=== PATIENT | female | born 1965 | race Caucasian/White ===

== ENCOUNTER 2020-03-09 10:07 | Outpatient (REF) | payer OTHER, SELFPAY ==
--- NOTE | 2020-03-09 | MM_ITS ---
EXAMINATION: MM SCREENING DIGITAL BREAST TOMOSYNTHESIS, BILATERAL CLINICAL INFORMATION: Screening. Asymptomatic. The lifetime risk of breast cancer based on the Tyrer-Cuzick Model is 12%. COMPARISON: Mammography: 08/26/2018, 02/10/2018, 08/02/2017, 07/02/2016, 06/13/2015 TECHNIQUE: Digital breast tomosynthesis is performed in both the craniocaudal and mediolateral oblique views along with computer-aided detection (CAD). Synthesized 2D images are generated from the tomosynthesis. FINDINGS: There are scattered areas of fibroglandular density (ACR BI-RADS breast composition Category b). There are bilateral biopsy clip markers, mid left 6:00 and 2 anterior inferior right breast. The left breast shows no interval mass or architectural abnormality. Neither breast shows abnormal calcifications. The axilla and skin contours are unremarkable. Right breast has subtle focal asymmetric density 12 o'clock position 6.5 cm from nipple, possibly related to summation artifact or incompletely compressed fibroglandular tissue. Patient will be recalled to fully characterize. MM/MM tomosynthesis screening BI IMPRESSION: 1. Right: Focal asymmetric density 12:00 position, possibly summation artifact or incompletely compressed fibroglandular tissue. 2. Left: No mammographic evidence of malignancy. ASSESSMENT: BI-RADS 0: Incomplete - Need Additional Imaging Evaluation RECOMMENDATION: 1. Additional views of the right breast (3D rolled CC x2, 3D spot ML). 2. Targeted ultrasound if warranted after review of the additional views. 3. Radiology department staff will contact the patient for additional imaging. This patient's information was entered into a reminder system with a target due date for their next mammogram.
== END 2020-03-09 10:08 | disposition home or self-care (01) ==
LOC: HO.MAMMO 10:07
PROVIDERS: PCP Internal Medicine; Visit Provider Internal Medicine
DX: Z12.31 Encounter for screening mammogram for malignant neoplasm of breast (principal)
CPT/HCPCS: 77063; 77067

== ENCOUNTER 2020-03-22 10:09 | Outpatient (REF) | payer OTHER, SELFPAY ==
[2020-03-22 10:50] LABS: MANUAL DIFF FLAG NO
[2020-03-22 10:58] LABS: Basophils Percent Auto 0.2 % (0-2); Eosinophils Percent Auto 0.8 % (0-4); Hematocrit 47.4 % (37-47); Hemoglobin 14.6 g/dl (12.0-16.0); Imm Gran Abs Auto 0.02 X10*3/uL (0.00-0.03); Imm Gran Pct Auto 0.4 % (0.0-0.4); Lymphocytes Absolute Auto 1.7 X10*3/uL (1.2-4.9); Lymphocytes Percent Auto 33.7 % (20-40); Mean Corpuscular HGB Conc 30.8 g/dl (31.0-35.0); Mean Corpuscular Hemoglobin 27.7 pg (27.0-33.0); Mean Corpuscular Volume 89.9 fL (80-98); Mean Platelet Volume 10.2 fL (9.4-12.3); Monocytes Absolute Auto 0.4 X10*3/uL (0.1-1.2); Neutrophils Percent Auto 57.9 % (45-73); Platelet Count 215 X10*3/uL (160-400); Red Blood Count 5.27 X10*6/uL (4.20-5.50); Red Cell Distribution Width 13.3 % (11.0-16.0); White Blood Count 5.2 X10*3/uL (4.8-10.8)
[2020-03-22 11:23] LABS: Alanine Aminotransferase 29 U/L (0-31); Albumin Level 4.2 g/dL (3.5-5.0); Alkaline Phosphatase 108 U/L (39-117); Anion Gap 11 (12-20); Aspartate Amino Transferase 18 U/L (5-31); Bilirubin Total 0.4 mg/dL (0.0-1.0); Blood Urea Nitrogen 10 mg/dL (9-16); Calcium 9.4 mg/dL (8.4-10.2); Carbon Dioxide 28 mmol/L (22-29); Chloride 105 mmol/L (96-108); Cholesterol 207 mg/dL; Estimated Glomerular Filt Rate > 60; Glucose Fasting 86 mg/dL (60-99); HDL Cholesterol 52 mg/dL; LDL Cholesterol Calculated 140 mg/dl; Potassium 4.2 mmol/l (3.3-5.1); Sodium 140 mmol/L (135-145); Total Protein 7.7 g/dL (6.5-8.0); Triglycerides 76 mg/dL
[2020-03-22 11:46] LABS: Vitamin D 25-OH Total 26.6 ng/mL (>30)
== END 2020-03-22 10:10 | disposition home or self-care (01) ==
LOC: HO.LAB 10:09
PROVIDERS: PCP Internal Medicine; Visit Provider Internal Medicine
DX: E78.00 Pure hypercholesterolemia, unspecified (principal); G44.209 Tension-type headache, unspecified, not intractable; E55.9 Vitamin D deficiency, unspecified
CPT/HCPCS: 36415; 80053; 80061; 82306; 85025

== ENCOUNTER 2020-03-22 12:36 | Outpatient (REF) | payer OTHER, SELFPAY | END 2020-03-22 12:37 | disposition home or self-care (01) | LOC: HO.MAMMO 12:36 | PROVIDERS: PCP Internal Medicine; Visit Provider Internal Medicine | DX: Z13.89 Encounter for screening for other disorder (principal) ==

== ENCOUNTER 2020-04-21 14:08 | Outpatient (REF) | payer OTHER, SELFPAY ==
--- NOTE | 2020-04-21 14:14 | MM_ITS ---
EXAMINATION: MM DIAGNOSTIC DIGITAL BREAST TOMOSYNTHESIS, RIGHT US BREAST TARGETED, RIGHT CLINICAL INFORMATION: Right breast asymmetry. COMPARISON: Mammography: 03/09/2020 and studies dating back to 10/03/2009 TECHNIQUE: Digital breast tomosynthesis is performed. 2-D images are generated from the tomosynthesis. The following views are obtained: Full-field craniocaudal medial and lateral rolled views as well as spot compression craniocaudal and 90 degree mediolateral view. Targeted right breast ultrasound. FINDINGS: The breasts are heterogeneously dense, which may obscure small masses (ACR BI-RADS breast composition Category c). At approximately the 12 o'clock position 8 cm from the nipple, there is a region of architectural distortion with indeterminate calcifications present. Targeted ultrasound evaluation of the superior aspect of the right breast did not definitely demonstrate a corresponding lesion. Recommend stereotactic core biopsy of the right breast lesion with calcifications. Results are discussed with the patient at time of visit. Hilda at referring physician's office notified of the above recommendation. MM/MM tomosynthesis added views L IMPRESSION: Suspicious spiculated mass with microcalcifications superior aspect of the right breast for which stereotactic core biopsy is recommended. ASSESSMENT: BI-RADS 4: Suspicious RECOMMENDATION: Stereotactic biopsy. This patient's information was entered into a reminder system with a target due date for their next mammogram.
--- NOTE | 2020-04-21 14:15 | US_ITS ---
EXAMINATION: US DIAGNOSTIC ULTRASOUND BREAST, RIGHT CLINICAL INFORMATION: Region of asymmetric distortion with calcifications superior right breast. COMPARISON: Mammography of same day as well as dating back to 02/14/2010. TECHNIQUE: Ultrasound of the breast is performed with real-time kenyon scale imaging and color Doppler. FINDINGS: The breasts are heterogeneously dense, which may obscure small masses (ACR BI-RADS breast composition Category c). At approximately 12 o'clock position 8 cm from the nipple there is a region of architectural distortion with indeterminate calcifications present. Targeted ultrasound evaluation of the superior aspect of the right breast did not definitely demonstrate a corresponding lesion. Recommend stereotactic core biopsy of the right breast lesion with calcifications. Results are discussed with the patient at time of visit. Hilda at referring physician's office notified of the above recommendation. US/US breast RT limited IMPRESSION: Suspicious spiculated mass with microcalcifications superior aspect of the right breast for which stereotactic core biopsy is recommended. ASSESSMENT: BI-RADS 4: Suspicious RECOMMENDATION: Stereotactic biopsy.
== END 2020-04-21 14:09 | disposition home or self-care (01) ==
LOC: HO.MAMMO 14:08
PROVIDERS: PCP Internal Medicine; Visit Provider Internal Medicine
DX: N64.9 Disorder of breast, unspecified (principal)
CPT/HCPCS: 76642; 77061; 77065

== ENCOUNTER 2020-05-03 08:57 | Outpatient (REF) | payer OTHER, SELFPAY ==
--- NOTE | 2020-05-03 09:06 | MM_ITS ---
EXAMINATION: STEREOTACTIC TOMOSYNTHESIS-GUIDED VACUUM-ASSISTED BREAST BIOPSY, RIGHT SPECIMEN RADIOGRAPH, RIGHT POST PROCEDURE DIGITAL BREAST TOMOSYNTHESIS, RIGHT CLINICAL INFORMATION: Architectural changes 11:00 to 12:00 right breast. No definite focal ultrasound correlate. Stereotactic sampling recommended. COMPARISON: Mammography 05/01/2020, 03/09/2020, 08/26/2018, 08/02/2017, ultrasound right breast 04/21/2020. TECHNIQUE/PROCEDURE: Informed consent was obtained from the patient after discussion of the benefits, risks, and alternatives to biopsy today. Patient appeared to understand. Gave opportunity for questions. Patient signed consent form. BIOPSY TABLE: [employer] ([employer] Affirm Prone Biopsy System. LESION: Architectural changes upper right breast. Calcifications referenced on recent report posterior superior to the architectural change appear to be vascular. Architectural changes targeted. LOCAL ANESTHESIA: 6 mL 1% lidocaine; 10 mL 1% lidocaine with epinephrine. DERMATOTOMY: Single skin luis dermatotomy performed. NEEDLE: [employer] Eviva 9-gauge vacuum assisted core biopsy device. APPROACH: craniocaudal. TARGETING: Digital breast tomosynthesis used for targeting. CORES: 12. CLIP: shoutr SecurMark T-shaped marker. SPECIMEN RADIOGRAPH: Specimen radiograph x 2 views is taken in separate room using digital mammography. There are multiple fibroglandular densities in the cores. POST PROCEDURE UNILATERAL DIGITAL BREAST TOMOSYNTHESIS, RIGHT: The post biopsy mammogram is performed in separate room using separate digital breast tomosynthesis equipment from the biopsy procedure. CC and ML views are obtained. Synthesized images are generated from the tomography. There are scattered areas of fibroglandular density (breast composition category: b). The clip marker is in position, corresponding to the area of architectural concern. No gross hematoma. The patient tolerated the procedure well. No immediate complications. Home instructions reviewed with the patient. Final pathology results are pending. MM/MM stereotactic biopsy RT IMPRESSION: 1. Digital tomosynthesis-guided core biopsy right breast with clip placement. 2. Specimen radiograph taken and post procedure mammogram. There is satisfactory positioning of the biopsy clip. 3. Final pathology results pending. An addendum report will be issued.
== END 2020-05-03 08:58 | disposition home or self-care (01) ==
LOC: HO.MAMMO 08:57
PROVIDERS: Visit Provider Surgery
DX: N63.11 Unspecified lump in the right breast, upper outer quadrant (principal)
CPT/HCPCS: 19081; 88305; 88341; 88342; 99202

== ENCOUNTER → 2020-05-06 08:35 | Outpatient (BNVA) | payer OTHER, SELFPAY | PROVIDERS: PCP Internal Medicine; Visit Provider Surgery | DX: R92.8 Other abnormal and inconclusive findings on diagnostic imaging of breast (principal) | CPT/HCPCS: 99212 ==

== ENCOUNTER 2020-10-05 14:25 | Outpatient (REF) | payer OTHER, SELFPAY ==
--- NOTE | ~2020-10-05 | MM_ITS ---
EXAMINATION: MM DIAGNOSTIC DIGITAL BREAST TOMOSYNTHESIS, RIGHT CLINICAL INFORMATION: Short interval follow-up right stereotactic biopsy 05/03/2020 (Benign breast parenchyma with fibrocystic changes, apocrine adenosis, and scattered calcifications; negative for atypical hyperplasia and carcinoma). The lifetime risk of breast cancer based on the Tyrer-Cuzick Model is 7%. COMPARISON: Mammography: 05/03/2020, 1 11/01/2020, 03/09/2020, 08/27/2019 2019 TECHNIQUE: Digital breast tomosynthesis is performed in both the craniocaudal and mediolateral oblique views along with computer-aided detection (CAD). Synthesized 2D images are generated from the tomosynthesis. Additional magnification views are obtained in the CC and ML x3 projections. FINDINGS: There are scattered areas of fibroglandular density (ACR BI-RADS breast composition Category b). There are 2 old biopsy clip markers anterior 6:00 position. The clip marker mid 12:00 position represents the most recent tissue sampling from stereotactic biopsy 05/03/2020. There is no developing density or interval architectural changes. There are numerous fine calcifications tightly grouped 1 cm posterior to the stereotactic clip marker on the CC view. These appear likely increased on the CC view compared with prior imaging and do not appear vascular. On ML #3 mag view, the calcifications appear to be arranged in a circular configuration and less numerous, possibly rim calcifications around fat necrosis. There are no prior magnification views to definitively compare. Results are discussed with the patient at time of visit. There are no interval architectural changes. The calcifications posterior to the clip marker will continue to be followed, again at next bilateral exam, due in 6 months. MM/MM tomosynthesis diagnostic RT IMPRESSION: 1. No developing density or architectural changes in area prior tissue sampling for architectural distortion. 2. Calcifications 1 cm posterior to the clip marker appear likely increased on CC view but circularly arranged in rim fashion on ML view. They do not appear to be vascular. No prior magnification views. ASSESSMENT: BI-RADS 3: Probably Benign RECOMMENDATION: Magnification views right breast at time of annual bilateral exam, due in 6 months. This patient's information was entered into a reminder system with a target due date for their next mammogram.
== END 2020-10-05 14:26 | disposition home or self-care (01) ==
LOC: HO.MAMMO 14:25
PROVIDERS: Visit Provider Surgery
DX: R92.1 Mammographic calcification found on diagnostic imaging of breast (principal)
CPT/HCPCS: 77061; 77065

== ENCOUNTER → 2020-11-07 08:05 | Outpatient (BNVA) | payer OTHER, SELFPAY | PROVIDERS: PCP Internal Medicine; Visit Provider Obstetrics & Gynecology ==

== ENCOUNTER 2021-03-10 08:18 | Outpatient (REF) | payer OTHER, SELFPAY ==
[2021-03-10 08:33] LABS: MANUAL DIFF FLAG NO
[2021-03-10 08:39] LABS: Basophils Percent Auto 0.2 % (0-2); Eosinophils Absolute Auto 0.1 X10*3/uL (0.0-0.4); Eosinophils Percent Auto 1.3 % (0-4); Hematocrit 45.7 % (37.0-47.0); Hemoglobin 14.6 g/dl (12.0-16.0); Imm Gran Abs Auto 0.03 X10*3/uL (0.00-0.03); Imm Gran Pct Auto 0.5 % (0.0-0.4); Lymphocytes Absolute Auto 2.1 X10*3/uL (1.2-4.9); Lymphocytes Percent Auto 33.5 % (20-40); Mean Corpuscular HGB Conc 31.9 g/dl (31.0-35.0); Mean Corpuscular Hemoglobin 28.2 pg (27.0-33.0); Mean Corpuscular Volume 88.4 fL (80.0-98.0); Mean Platelet Volume 10.1 fL (9.4-12.3); Monocytes Absolute Auto 0.5 X10*3/uL (0.1-1.2); Neutrophils Absolute Auto 3.5 x10*3/uL (2.0-8.3); Neutrophils Percent Auto 56.5 % (45-73); Platelet Count 229 X10*3/uL (160-400); Red Blood Count 5.17 X10*6/uL (4.20-5.50); Red Cell Distribution Width 13.9 % (11.0-16.0); White Blood Count 6.2 X10*3/uL (4.8-10.8)
[2021-03-10 09:00] LABS: Alanine Aminotransferase 27 U/L (0-31); Alkaline Phosphatase 100 U/L (39-117); Anion Gap 11 (12-20); Aspartate Amino Transferase 17 U/L (5-31); Bilirubin Total 0.6 mg/dL (0.0-1.0); Blood Urea Nitrogen 10 mg/dL (9-16); Calcium 9.5 mg/dL (8.4-10.2); Carbon Dioxide 25 mmol/L (22-29); Chloride 105 mmol/L (96-108); Cholesterol 197 mg/dL; Estimated Glomerular Filt Rate > 60; Glucose Fasting 105 mg/dL (60-99); HDL Cholesterol 51 mg/dL; LDL Cholesterol Calculated 127 mg/dl; Potassium 3.9 mmol/L (3.3-5.1); Sodium 137 mmol/L (135-145); Total Protein 7.3 g/dL (6.5-8.0); Triglycerides 96 mg/dL
[2021-03-13 12:01] LABS: Vitamin D 25-OH, D2 <4 ng/mL; Vitamin D 25-OH, D3 28 ng/mL; Vitamin D 25-OH, Total 28 ng/mL (30-100)
== END 2021-03-10 08:19 | disposition home or self-care (01) ==
LOC: HO.LAB 08:18
PROVIDERS: PCP Internal Medicine; Visit Provider Internal Medicine
DX: E78.5 Hyperlipidemia, unspecified (principal); G43.909 Migraine, unspecified, not intractable, without status migrainosus; E55.9 Vitamin D deficiency, unspecified; D64.9 Anemia, unspecified
CPT/HCPCS: 36415; 80053; 80061; 82306; 85025

== ENCOUNTER 2021-04-03 12:52 | Outpatient (REF) | payer OTHER, SELFPAY ==
--- NOTE | ~2021-04-03 | MM_ITS ---
EXAMINATION: MM DIAGNOSTIC DIGITAL BREAST TOMOSYNTHESIS, BILATERAL CLINICAL INFORMATION: Due for yearly. Also follow-up benign right stereotactic biopsy performed for chronic architectural changes 04/23/2020 (Benign breast parenchyma with fibrocystic changes, apocrine adenosis, and scattered calcifications; negative for atypical hyperplasia and carcinoma). Calcifications adjacent to biopsy clip marker felt to be vascular. COMPARISON: Mammography: 10/05/2020, 05/03/2020, multiple prior exams dating back to 04/09/2012 TECHNIQUE: Digital breast tomosynthesis is performed in both the craniocaudal and mediolateral oblique views along with computer-aided detection (CAD). Synthesized 2D images are generated from the tomosynthesis. Magnification right CC, magnification right ML. FINDINGS: There are scattered areas of fibroglandular density (ACR BI-RADS breast composition Category b). Parenchymal pattern is similar to prior studies. There is no interval mass or architectural abnormality or developing density. Subtle architectural changes mid upper right breast 11:00 position appear stable from multiple prior exams. Biopsy clip marker present at this site. The calcifications immediately posterior to the clip marker were felt to represent vascular calcifications and remain stable on magnification views. They will be reassessed again in 6 months. There is no additional biopsy clip markers anterior right breast and a biopsy clip marker 6:30 o'clock mid left breast. The axilla and skin contours are unremarkable. Preliminary results are provided to the patient at time of visit by the technologist. MM/MM tomosynthesis diagnostic BI IMPRESSION: 1. Right: No developing density or interval architectural abnormality. Probable benign calcifications near biopsy site, previously considered to be likely vascular. 2. Left: No mammographic evidence of malignancy. ASSESSMENT: BI-RADS 3: Probably Benign RECOMMENDATION: Diagnostic right mammography in 6 months, to include magnification views. This patient's information was entered into a reminder system with a target due date for their next mammogram.
== END 2021-04-03 12:53 | disposition home or self-care (01) ==
LOC: HO.MAMMO 12:52
PROVIDERS: Visit Provider Internal Medicine
DX: R92.1 Mammographic calcification found on diagnostic imaging of breast (principal)
CPT/HCPCS: 77062; 77066

== ENCOUNTER 2021-04-21 07:32 | Outpatient (REF) | payer OTHER, SELFPAY | END 2021-04-21 07:33 | disposition home or self-care (01) | LOC: HO.HOSX 07:32 | PROVIDERS: Visit Provider Physician Assistant | DX: Z13.89 Encounter for screening for other disorder (principal) ==

== ENCOUNTER 2021-07-28 07:08 | Outpatient (REF) | payer OTHER, SELFPAY ==
--- NOTE | ~2021-07-28 | XR_ITS ---
EXAMINATION: 1. RADIOGRAPHS STANDING KNEES AP BILATERAL 2. RADIOGRAPHS RIGHT KNEE, PATELLAR AND LATERAL VIEW CLINICAL INFORMATION: Pain COMPARISON: Bilateral knee radiographs 10/27/2020 TECHNIQUE: Standing AP views of both knees were obtained in addition to lateral and patellar sunrise views of the right knee. FINDINGS: Right knee: No fracture or dislocation. No suprapatellar joint effusion. Minimal narrowing of the medial joint space height. Small tricompartmental marginal osteophytes, most predominantly involving the medial compartment. AP standing view of the left knee: Minimal narrowing of the medial joint space height. No fracture. No significant degenerative changes. XR/XR knee RT 2V IMPRESSION: Mild degenerative changes of both knees.
--- NOTE | ~2021-07-28 | XR_ITS ---
EXAMINATION: 1. RADIOGRAPHS STANDING KNEES AP BILATERAL 2. RADIOGRAPHS RIGHT KNEE, PATELLAR AND LATERAL VIEW CLINICAL INFORMATION: Pain COMPARISON: Bilateral knee radiographs 10/27/2020 TECHNIQUE: Standing AP views of both knees were obtained in addition to lateral and patellar sunrise views of the right knee. FINDINGS: Right knee: No fracture or dislocation. No suprapatellar joint effusion. Minimal narrowing of the medial joint space height. Small tricompartmental marginal osteophytes, most predominantly involving the medial compartment. AP standing view of the left knee: Minimal narrowing of the medial joint space height. No fracture. No significant degenerative changes. XR/XR knee standing BI IMPRESSION: Mild degenerative changes of both knees.
== END 2021-07-28 07:09 | disposition home or self-care (01) ==
LOC: HO.HOSX 07:08
PROVIDERS: Visit Provider Physician Assistant
DX: M17.11 Unilateral primary osteoarthritis, right knee (principal)
CPT/HCPCS: 20610; 73560; 73565; 99202; J1040

== ENCOUNTER 2021-10-02 10:01 | Outpatient (REF) | payer OTHER, SELFPAY ==
--- NOTE | ~2021-10-02 | MM_ITS ---
EXAMINATION: MM DIAGNOSTIC DIGITAL BREAST TOMOSYNTHESIS, RIGHT CLINICAL INFORMATION: Benign right stereotactic biopsy 04/23/2020 performed for architectural changes (Benign breast parenchyma with fibrocystic changes, apocrine adenosis, and scattered calcifications; negative for atypical hyperplasia and carcinoma). Also follow-up probable benign tightly grouped calcifications posterior to biopsy site. The lifetime risk of breast cancer based on the Tyrer-Cuzick Model is 6%. COMPARISON: Mammography: 04/03/2021, 10/05/2020, 05/03/2020, 04/21/2020, 03/09/2020 (BI-RADS 0). TECHNIQUE: Digital breast tomosynthesis is performed in both the craniocaudal and mediolateral oblique views along with computer-aided detection (CAD). Synthesized 2D images are generated from the tomosynthesis. Additional magnification right CC x2 and magnification right ML views are obtained. FINDINGS: There are scattered areas of fibroglandular density (ACR BI-RADS breast composition Category b). Parenchymal pattern is similar to prior studies. There are 2 old biopsy clip markers retroareolar inferior breast. T-shaped biopsy clip marker 12:00 position is from recent stereotactic procedure. There are no interval architectural changes. No interval mass or abnormal calcifications. The punctate tightly grouped calcifications immediately superior and posterior to the clip marker outside of the architectural area for sampling are stable. Calcifications will be reassessed again at time of annual bilateral mammography, due in 6 months. Results are provided to the patient at time of visit by the technologist. MM/MM tomosynthesis diagnostic RT IMPRESSION: -Parenchymal pattern similar to prior studies. No interval architectural abnormality. -Probable benign tightly grouped calcifications posterior superior to biopsy site stable. ASSESSMENT: BI-RADS 3: Probably Benign RECOMMENDATION: Diagnostic mammography at time of annual bilateral exam, due in 6 months. This patient's information was entered into a reminder system with a target due date for their next mammogram.
== END 2021-10-02 10:02 | disposition home or self-care (01) ==
LOC: HO.MAMMO 10:01
PROVIDERS: Visit Provider Internal Medicine
DX: R92.1 Mammographic calcification found on diagnostic imaging of breast (principal)
CPT/HCPCS: 77061; 77065

== ENCOUNTER → 2022-01-16 08:51 | Outpatient (BNVA) | payer OTHER, SELFPAY | PROVIDERS: PCP Internal Medicine; Visit Provider Physician Assistant | DX: M17.11 Unilateral primary osteoarthritis, right knee (principal) | CPT/HCPCS: 20610; 99212; J1040 ==

== ENCOUNTER 2022-02-09 07:23 | Outpatient (REF) | payer OTHER, SELFPAY ==
[2022-02-09 08:50] LABS: Alanine Aminotransferase 16 U/L (0-31); Alkaline Phosphatase 97 U/L (39-117); Anion Gap 13 (12-20); Aspartate Amino Transferase 12 U/L (5-31); Bilirubin Total 0.4 mg/dL (0.0-1.0); Blood Urea Nitrogen 10 mg/dL (9-16); Calcium 9.9 mg/dL (8.4-10.2); Carbon Dioxide 29 mmol/L (22-29); Chloride 104 mmol/L (96-108); Cholesterol 213 mg/dL; Estimated Glomerular Filt Rate > 60; Glucose Fasting 100 mg/dL (60-99); HDL Cholesterol 53 mg/dL; LDL Cholesterol Calculated 145 mg/dl; Sodium 142 mmol/L (135-145); Total Protein 7.3 g/dL (6.5-8.0); Triglycerides 76 mg/dL
[2022-02-09 09:11] LABS: Vitamin D 25-OH Total 29.7 ng/mL (>30)
== END 2022-02-09 07:24 | disposition home or self-care (01) ==
LOC: HO.LAB 07:23
PROVIDERS: PCP Internal Medicine; Visit Provider Internal Medicine
DX: Z00.00 Encounter for general adult medical examination without abnormal findings (principal); E55.9 Vitamin D deficiency, unspecified; E78.5 Hyperlipidemia, unspecified
CPT/HCPCS: 36415; 80053; 80061; 82306

== ENCOUNTER 2022-05-11 08:36 | Outpatient (REF) | payer OTHER, SELFPAY ==
--- NOTE | ~2022-05-11 | MM_ITS ---
EXAMINATION: MM DIAGNOSTIC DIGITAL BREAST TOMOSYNTHESIS, BILATERAL CLINICAL INFORMATION: This benign right stereotactic biopsy for subtle architectural changes upper right breast 05/03/2020 (benign breast parenchyma with fibrocystic changes, apocrine adenosis, and scattered calcifications; negative for atypical hyperplasia and carcinoma). Subsequent mammography shows interval calcifications posterior to biopsy clip marker. No known family history breast cancer. The lifetime risk of breast cancer based on the Tyrer-Cuzick Model is 6%. COMPARISON: Mammography: 10/02/2021, 04/03/2021, 10/05/2020, 05/03/2020, 04/21/2020, 03/09/2020, 08/26/2018. TECHNIQUE: Digital breast tomosynthesis is performed in both the craniocaudal and mediolateral oblique views along with computer-aided detection (CAD). Synthesized 2D images are generated from the tomosynthesis. Additional magnification right CC and magnification right ML views are obtained. FINDINGS: There are scattered areas of fibroglandular density (ACR BI-RADS breast composition Category b). Parenchymal pattern is similar to prior studies. Again, there are scattered bilateral nodularity. There is no developing density, interval mass, or architectural changes. Left breast shows no abnormal calcifications. The bilateral axilla and skin contours are unremarkable. There are 2 biopsy clip markers left breast. There are 3 biopsy clip markers right breast. The most recent sampling 05/03/2020 used a T shaped clip 11:30 position approximately 6.5 cm from nipple. Immediately posterior to the T shaped clip marker are numerous fine calcifications for follow-up. The calcifications vary in size, in an area under 1 cm. The calcifications are increased over time since stereotactic sampling. Results are discussed with the patient at time of visit. The right breast calcifications were not the reason for stereotactic sampling in 2020. They could be related to fat necrosis. Tissue sampling under stereotactic guidance is suggested to confirm benignity. Patient is in agreement. MM/MM tomosynthesis diagnostic BI IMPRESSION: Right: -Numerous fine calcifications which vary in size posterior to the T shaped biopsy clip marker. Although the calcifications could be related to fat necrosis, tissue sampling under stereotactic guidance is suggested to confirm benignity. Left: -No mammographic evidence of malignancy. ASSESSMENT: BI-RADS 4: Suspicious RECOMMENDATION: Stereotactic biopsy right breast calcifications. This patient's information was entered into a reminder system with a target due date for their next mammogram.
== END 2022-05-11 08:37 | disposition home or self-care (01) ==
LOC: HO.MAMMO 08:36
PROVIDERS: PCP Internal Medicine; Visit Provider Internal Medicine
DX: R92.1 Mammographic calcification found on diagnostic imaging of breast (principal)
CPT/HCPCS: 77062; 77066

== ENCOUNTER 2022-05-17 09:07 | Outpatient (REF) | payer OTHER, SELFPAY ==
--- NOTE | ~2022-05-17 | MM_ITS ---
EXAMINATION: STEREOTACTIC TOMOSYNTHESIS-GUIDED VACUUM-ASSISTED BREAST BIOPSY, RIGHT SPECIMEN RADIOGRAPH, RIGHT POST PROCEDURE DIGITAL MAMMOGRAM, RIGHT CLINICAL INFORMATION: Numerous fine calcifications posterior to T shaped biopsy clip marker (benign stereotactic biopsy 05/03/2020 for architectural changes). COMPARISON: Mammography 05/11/2022, 05/04/2021, 05/03/2020. TECHNIQUE/PROCEDURE: Informed consent was obtained from the patient after discussion of the benefits, risks, and alternatives to biopsy today. Patient appeared to understand. Gave opportunity for questions. Patient signed consent form. Hospital provided watermelon harvesting supervisor assisted for the consent and throughout the procedure. BIOPSY TABLE: [employer] Affirm Prone Biopsy System. LESION: Numerous grouped calcifications just posterior to the T shaped biopsy clip marker. LOCAL ANESTHESIA: 10 mL carbonated 1% lidocaine; 10 mL 1% lidocaine with epinephrine. DERMATOTOMY: Single skin luis dermatotomy performed. NEEDLE: [employer] 9-gauge vacuum assisted core biopsy device. APPROACH: Craniocaudal. TARGETING: Combination of digital breast tomosynthesis and stereotactic digital mammography used for targeting. CORES: 5. CLIP: [employer] SecurMark Cylinder-shaped marker. SPECIMEN RADIOGRAPH: Specimen radiograph is taken in separate room using digital mammography. The index calcifications are in the excised cores. There are over 20 calcifications in the cores. POST PROCEDURE UNILATERAL DIGITAL MAMMOGRAM: The post biopsy mammogram is performed in separate room using separate digital mammography equipment from the biopsy procedure. CC and ML views are obtained. There are scattered areas of fibroglandular density (breast composition category: b). The cylinder shaped clip marker is in position. The calcifications are markedly decreased at the biopsy site. No gross hematoma. There is also a T shaped biopsy clip marker from the prior benign right stereotactic biopsy 05/03/2020. The patient tolerated the procedure well. No immediate complications. Home instructions reviewed with the patient. Final pathology results are pending. MM/MM stereotactic biopsy RT IMPRESSION: 1. Digital tomosynthesis-guided core biopsy right breast with clip placement. 2. Specimen radiograph taken and post procedure mammogram. There is satisfactory positioning of the biopsy clip. 3. Final pathology results pending. An addendum report will be issued.
[2022-05-17] MEDS: Lidocaine HCl 1 % 20 ML VIAL 10 ML SUBCUT (10:55)
[2022-05-17] MEDS: Sodium Bicarbonate 8.4% 50 MEQ/50 ML VIAL SUBCUT (10:56)
[2022-05-17] MEDS: Lidocaine HCl 1% PF/Epi 1:200,000 30 ML VIAL 10 ML SUBCUT (10:59)
== END 2022-05-17 09:08 | disposition home or self-care (01) ==
LOC: HO.MAMMO 09:07
PROVIDERS: Visit Provider Surgery
DX: R92.1 Mammographic calcification found on diagnostic imaging of breast (principal)
CPT/HCPCS: 19081; 88305; 88341; 88342; 99212; A4648

== ENCOUNTER → 2022-05-25 09:04 | Outpatient (BNVA) | payer OTHER, SELFPAY | PROVIDERS: PCP Internal Medicine; Referring Provider Internal Medicine; Visit Provider Surgery | DX: R92.1 Mammographic calcification found on diagnostic imaging of breast (principal); I10 Essential (primary) hypertension; E78.00 Pure hypercholesterolemia, unspecified; E55.9 Vitamin D deficiency, unspecified | CPT/HCPCS: 99212 ==

== ENCOUNTER 2022-11-19 07:49 | Outpatient (AMB) | payer OTHER, SELFPAY ==
[2022-11-19 08:08] VITALS: BP 132/70; BMI 35.4
--- NOTE | 2022-11-19 08:08 | MHC.OFFVIS ---
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 No complaints. Last Pap/HPV was negative in 12/02 Last Mammogram was BI-RADS 4 in 05/07, the patient had a biopsy with negative pathology. Last Colonoscopy was 9 years ago, the patient will be due in 1 year for another screening colonoscopy [facility] Medical History ASCUS of cervix with negative high risk HPV Breast calcification, right Depression Essential hypertension Hypovitaminosis D Migraines Mild recurrent major depression Physical exam Pure hypercholesterolemia Right knee pain Surgical History History of breast biopsy History of endometrial ablation History of tubal ligation Family History Father Hypertension CVD (cardiovascular disease) Diabetes Mother Hypertension Diabetes Hypercholesteremia Sister Lung cancer Family/Other FH: mental illness Social History Household Members: Spouse Housing: Apartment Alcohol intake: never Patient Tobacco Use Status: Never used Tobacco e-Cigarette/Vaping Use: Never Used Second Hand Smoke Exposure: No service: No Current occupational status: unemployed 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 Sexually active: Yes Sexual orientation: Straight/Heterosexual Gender identity: Female Cognitive needs: No Hearing needs: No Vision needs: Yes Female Reproductive History Menstrual Age of Menarche: 9 Menopause type: natural Total pregnancies: 4 Full term: 4 Number of Living Children: 3 Date of last pap smear: 10/18/19 Date of Mammogram: 05/11/22 Review of Systems Const All systems reviewed & are unremarkable except as noted in HPI and below Card Reports as per HPI Resp Reports as per HPI GI Reports as per HPI and Reports no additional complaints Reports as per HPI Physical Exam Vital Signs: Last Vital Signs BP 132/70 11/19/22 08:08 BMI result Body Mass Index 35.4 Const General: cooperative, healthy appearing and comfortable Chest Chest palpation & inspection: normal inspection of the chest and normal palpation of entire chest wall Breast/axilla inspection: normal inspection of the breasts and normal inspection of the axillae Breast/axilla palpation: normal palpation of the breasts, normal palpation of the axillae and no axillary lymphadenopathy Resp Effort & Inspection: normal respiratory effort Auscultation: clear to auscultation bilaterally Percussion: percussion normal Cardio Palpation: normal PMI Rate: regular rate Rhythm: regular rhythm Heart sounds: no murmurs and no rubs Peripheral pulses: Peripheral pulses 2+ throughout GI Inspection: Yes normal to inspection Palpation (GI): Soft to palpation, nontender, no guarding, not rigid and No hepatosplenomegaly present Percussion: Yes normal to percussion Auscultation: normal bowel sounds Rectal Exam - Female: deferred General: Yes bladder normal to palpation External Female Exam: No lesion Speculum Exam - Vagina: normal appearance of the vagina, normal palpation, normal vaginal discharge and not erythematous Speculum Exam - Cervix: normal appearance of the cervix and normal palpation Bimanual exam- vagina & uterus: normal bimanual exam, normal palpation, uterine size normal, bladder normal to palpation, consistency normal and normal palpation Bimanual Exam- Adnexa, other: normal adnexae, no masses and no tenderness Assessment & Plan Assessment & Plan (1) Well woman exam: Code(s): Z01.419 - Encounter for gynecological examination (general) (routine) without abnormal findings Plan: Co testing not indicated this. Counseled the patient about the recommended dietary allowance of 1200 mg of Calcium & 600 IU of vitamin D. Instructions given the patient to schedule next her screening Mammogram in 05/08, the patient will be due for her next screening colonoscopy in a year . The patient was instructed to perform monthly self-breast exams and schedule annual exam in a year; all questions answered and the patient verbalized understanding. Coding Level of Care Code Est Pt Prev Care 40-64y(51392) Diagnoses Well woman exam Z01.419
== END 2022-11-19 09:27 | disposition home or self-care (01) ==
LOC: HO.HWS 07:50
PROVIDERS: PCP Internal Medicine; Visit Provider Obstetrics & Gynecology
DX: Z01.419 Encounter for gynecological examination (general) (routine) without abnormal findings (principal)
CPT/HCPCS: 99396

== ENCOUNTER → 2022-11-19 07:49 | Outpatient (BNVA) | payer OTHER, SELFPAY | PROVIDERS: PCP Internal Medicine; Visit Provider Obstetrics & Gynecology ==

== ENCOUNTER 2023-01-21 07:51 | Outpatient (REF) | payer OTHER, SELFPAY | END 2023-01-21 07:52 | disposition home or self-care (01) | LOC: HO.LAB 07:51 | PROVIDERS: PCP Internal Medicine; Visit Provider Internal Medicine | DX: E55.9 Vitamin D deficiency, unspecified (principal); E78.5 Hyperlipidemia, unspecified; I10 Essential (primary) hypertension | CPT/HCPCS: 36415; 80053; 80061; 82306 ==

== ENCOUNTER 2023-01-29 07:37 | Outpatient (AMB) | payer OTHER, SELFPAY ==
--- NOTE | 2023-01-29 07:40 | MHC.PC.OV ---
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 Accompanied by: Self / Same As Patient Allergies Seasonal Allergies Allergy (Intermediate, Verified 01/29/23 07:41) runny nose, sore throat Medication List - Last Reconciled 01/29/23 by Darleen Garcia MD blood pressure monitor As directed cane As directed cholecalciferol (vitamin D3) 25 mcg PO DAILY 90 days hydrochlorothiazide 25 mg PO DAILY 90 days hydroxyzine HCl 25 mg PO BID PRN meloxicam 15 mg PO DAILY sertraline 150 mg PO QAM sumatriptan succinate 25 mg PO ONCE 30 days Tobacco use date assessed: 09/25/22 Dental Screening Dental Screen Date: 01/29/23 Did you have a dental visit in the last 12 months?: No Did you have a dental problem in the last 6 months where you did not have access to dental care?: No Was dental information given to patient?: Patient has dentist HPI HPI Comments History of Present Illness Details This is a 57-year-old female with mild major depression, hypertension, pure hypercholesterolemia, migraines, right knee osteoarthritis and low vitamin-D that comes today for follow-up on her conditions. Depression stable with SSRIs and she does follows with psychiatry and counseling. Blood pressure well controlled. Cholesterol is elevated but her Stapleton risk score is 3.3% therefore no need for statins at the moment. Was advised to follow a low-cholesterol diet. Migraines are relieved by sumatriptan as needed and happens 4 to 5 times a month. On meloxicam as needed for right knee osteoarthritis and use a cane for gait stability. On vitamin-D supplements for her low vitamin-D. [facility] Medical History Breast calcification, right Physical exam Mild recurrent major depression Right knee pain Essential hypertension ASCUS of cervix with negative high risk HPV Depression Migraines Hypovitaminosis D Pure hypercholesterolemia Surgical History History of endometrial ablation History of breast biopsy History of tubal ligation Family History Father Hypertension CVD (cardiovascular disease) Diabetes Mother Hypertension Diabetes Hypercholesteremia Sister Lung cancer Family/Other FH: mental illness Social History Household Members: Spouse Housing: Apartment Alcohol intake: never Patient Tobacco Use Status: Never used Tobacco e-Cigarette/Vaping Use: Never Used Second Hand Smoke Exposure: No service: No Current occupational status: unemployed 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 Clyde Nino, Unique Sotelo, Cm Emerson and colleagues, with an educational charles from [employer]. Review of Systems Const All systems reviewed & are unremarkable except as noted in HPI and below Eyes Reports no additional complaints, Denies change in vision and Denies other visual disturbances Card Denies chest pain at rest, Denies chest pain with activity, Denies edema, Denies irregular heart rhythm, Denies claudication, Denies dyspnea, Denies dyspnea on exertion, Denies orthopnea, Denies paroxysmal nocturnal dyspnea and Denies slow heart rate Resp Denies cough, Denies dyspnea and Denies dyspnea on exertion GI Denies abdominal pain, Denies change in bowel habits, Denies excessive flatus, Denies nausea and Denies vomiting Denies urinary incontinence, Denies urinary hesitancy and Denies urinary urgency Musc Denies abnormal gait, Denies atrophy, Denies deformity, Reports arthralgias and Denies limited range of motion Skin/Breast Denies bleeding lesions, Denies changing lesions and Denies rash Neuro Denies abnormal gait and Denies lack of coordination Physical exam (Primary Care) Vital Signs: Last Vital Signs Pulse 83 01/29/23 08:12 BP 136/82 01/29/23 07:41 Pulse Ox 96 01/29/23 07:41 Oxygen Delivery Method Room Air 01/29/23 07:41 BMI result Body Mass Index 35.9 Tobacco/Smoking Status: Tobacco use Status Tobacco use date assessed 09/25/22 01/29/23 07:44 Patient Tobacco Use Status Never used Tobacco 01/29/23 07:44 e-Cigarette/Vaping Use Never Used 01/29/23 07:44 Thrive Assessment: Date of Thrive Assessment Date Thrive assessed 09/25/22 01/29/23 07:44 Const Limitations: ambulation with cane Eyes General: appearance normal, both eyes and all related structures Eyelids: Yes eyelids normal Conjunctivae: conjunctivae normal Neck Neck: Yes normal visual inspection and Yes supple Resp Effort & Inspection: normal respiratory effort Auscultation: clear to auscultation bilaterally Cardio Jugular venous distension: no JVD Rate: regular rate Rhythm: regular rhythm Heart sounds: S1 normal heart sound present and S2 normal heart sound present Extrem General: Yes full ROM Assessment and Plan Assessment & Plan (1) Mild recurrent major depression: Code(s): F33.0 - Major depressive disorder, recurrent, mild Plan: Continue SSRIs. Follow-up with psychiatry and counseling. (2) Essential hypertension: Code(s): I10 - Essential (primary) hypertension Plan: Continue hydrochlorothiazide. Blood pressure goal is equal or less than 130/80. (3) Pure hypercholesterolemia: Code(s): E78.00 - Pure hypercholesterolemia, unspecified Plan: Start low-cholesterol diet. (4) Hypovitaminosis D: Code(s): E55.9 - Vitamin D deficiency, unspecified Plan: Continue vitamin-D supplements. (5) Osteoarthritis of right knee: Code(s): M17.11 - Unilateral primary osteoarthritis, right knee Plan: Continue meloxicam as needed. Continue the use of a cane as needed. (6) Migraines: Code(s): G43.909 - Migraine, unspecified, not intractable, without status migrainosus Qualifiers: Migraine type: unspecified Status migrainosus presence: without status migrainosus Intractability: not intractable Qualified Code(s): G43.909 - Migraine, unspecified, not intractable, without status migrainosus Plan: Continue sumatriptan as needed. Orders: Referrals Open Access Screening Colonoscopy Referral Z12.11 - Encounter for screening for malignant neoplasm of colon Coding Level of Care Code Est Pt Level 4 (09481) Diagnoses Mild recurrent major depression F33.0 Essential hypertension I10 Pure hypercholesterolemia E78.00 Hypovitaminosis D E55.9 Osteoarthritis of right knee M17.11 Migraine without status migrainosus, not intractable, unspecified migraine type G43.909 Migraine type: unspecified Status migrainosus presence: without status migrainosus Intractability: not intractable Time Spent (min) 23
[2023-01-29 07:41] VITALS: BP 136/82; PULSE 92; O2SAT 96; BMI 35.9
[2023-01-29 08:12] VITALS: PULSE 83
== END 2023-01-29 08:13 | disposition home or self-care (01) ==
PROVIDERS: PCP Internal Medicine; Visit Provider Internal Medicine
DX: F33.0 Major depressive disorder, recurrent, mild (principal); I10 Essential (primary) hypertension; E78.00 Pure hypercholesterolemia, unspecified; E55.9 Vitamin D deficiency, unspecified; M17.11 Unilateral primary osteoarthritis, right knee; G43.909 Migraine, unspecified, not intractable, without status migrainosus
CPT/HCPCS: 99214

== ENCOUNTER 2023-02-05 07:40 | Outpatient (AMB) | payer OTHER, SELFPAY ==
--- NOTE | 2023-02-05 07:57 | MHC.OFFVIS ---
Intake Vital Signs 02/05/23 08:00 Height 5 ft 1 in Weight 190 lb BMI 35.9 BP 140/70 H Blood Pressure Location Lt brachial Position Sitting Pulse 90 Intake Visit Reasons: Colonoscopy Screening. Intake Note: Patient new consult for 2nd pre colonoscopy screening. Patient cc: acid reflex and constipation with bloating. 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 Accompanied by: Self / Same As Patient Allergies Seasonal Allergies Allergy (Intermediate, Verified 02/05/23 07:56) runny nose, sore throat Medication List - Last Reconciled 02/05/23 by Myranda Pickering PA-C blood pressure monitor As directed cane As directed hydrochlorothiazide 25 mg PO DAILY 90 days hydroxyzine HCl 25 mg PO BID PRN meloxicam 15 mg PO DAILY sertraline 150 mg PO QAM sumatriptan succinate 25 mg PO ONCE 30 days HPI HPI Comments History of Present Illness Details A 57 y/o female referred for colonoscopy- 10 years Constipation- takes nothing-admit she is not good about taking medications as well does not eat a high-fiber diet In appetite is very good no issues No cardiac issues As CPAP, for RAMA no abdominal pain-follows with PCP No nausea, vomiting, hematemesis, hematochezia fever or chills PFSH Medical History (Updated 02/05/23 @ 08:46 by Myranda Pickering PA-C) Breast calcification, right Physical exam Mild recurrent major depression Right knee pain Essential hypertension ASCUS of cervix with negative high risk HPV Depression Migraines Hypovitaminosis D Pure hypercholesterolemia Surgical History History of endometrial ablation History of breast biopsy History of tubal ligation Family History Father Hypertension CVD (cardiovascular disease) Diabetes Mother Hypertension Diabetes Hypercholesteremia Sister Lung cancer Family/Other FH: mental illness Social History Household Members: Spouse Housing: Apartment Alcohol intake: never Patient Tobacco Use Status: Never used Tobacco e-Cigarette/Vaping Use: Never Used Second Hand Smoke Exposure: No service: No Current occupational status: unemployed 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 Sexual orientation: Straight/Heterosexual Gender identity: Female Cognitive needs: No Hearing needs: No Vision needs: Yes Female Reproductive History Menstrual Age of Menarche: 9 Review of Systems Const All systems reviewed & are unremarkable except as noted in HPI and below Reports snoring Card Denies chest pain and Denies dyspnea Resp Denies dyspnea and Reports snoring GI Denies abdominal pain, Denies hematochezia, Reports constipation, Denies heartburn, Denies nausea and Denies vomiting Physical Exam Vital Signs: Last Vital Signs Pulse 90 02/05/23 08:00 BP 140/70 H 02/05/23 08:00 BMI result Body Mass Index 35.9 Const General: cooperative, healthy appearing and comfortable Orientation/consciousness: patient oriented x3 Limitations: language barrier and ambulation with cane Eyes Sclerae: sclerae normal Resp Effort & Inspection: normal respiratory effort and able to speak in complete sentences Auscultation: clear to auscultation bilaterally, no rales, no rhonchi and no wheezes Cardio Rate: regular rate (Jul) Rhythm: regular rhythm Heart sounds: S1 normal heart sound present and S2 normal heart sound present GI Inspection: Yes obesity Palpation (GI): Soft to palpation and nontender Auscultation: normal bowel sounds Skin General skin exam: no rashes or lesions noted Neuro General: patient oriented x3 Extrem General: Yes full ROM Psych Appearance: grossly normal Mental Status: mental status grossly normal Speech and movement: Normal speech and movement present and Clear speech present Affect: normal affect Attitude: cooperative Thought process: Normal thought process present Thought content: Normal thought content present Assessment & Plan Assessment & Plan (1) Chronic constipation: Comment: bowel regimen Code(s): K59.09 - Other constipation Plan: consistent bowel regimen HFD (2) Encounter for screening colonoscopy: Comment: Discussed procedure, rare risks, need for escorted due to anesthesia- Code(s): Z12.11 - Encounter for screening for malignant neoplasm of colon Plan: Screening colonoscopy MiraLax Gatorade prep Plan Colonoscopy- MG prep-anesthesia consult- RAMA/ cpap consistent bowel regimen HFD Orders: Orders Colonoscopy - GI Use Only Today K59.09 - Other constipation, Z12.11 - Encounter for screening for malignant neoplasm of colon Medications: New bisacodyl (Dulcolax (bisacodyl)) Day before procedure, prep day Take 4 tablets by mouth upon awakening followed by large glass of water 20 mg (4 x 5 mg) PO ONCE 1 day 4 tabs 0RF colonoscopy prep Z12.11 - Encounter for screening for malignant neoplasm of colon polyethylene glycol 3350 (Miralax) 17 grams PO DAILY PRN 510 grams 6RF constipation calcium polycarbophil (Fiber Laxative (calcium polycarbophil)) 1,250 mg (2 x 625 mg) PO DAILY 30 days PRN 60 tabs 3RF constipation bisacodyl (Dulcolax (bisacodyl)) 10 mg OR DAILY PRN 20 ea 2RF constipation docusate sodium (Colace) 200 mg (2 x 100 mg) PO BEDTIME 60 caps 5RF polyethylene glycol 3350 (Miralax) Take as directed by mouth the day before your procedure. 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
[2023-02-05 08:00] VITALS: BP 140/70; PULSE 90; BMI 35.9
== END 2023-02-05 09:38 | disposition home or self-care (01) ==
PROVIDERS: PCP Internal Medicine; Visit Provider Physician Assistant
DX: K59.09 Other constipation (principal); Z12.11 Encounter for screening for malignant neoplasm of colon
CPT/HCPCS: 99203; 99213

== ENCOUNTER → 2023-02-05 07:40 | Outpatient (BNVA) | payer OTHER, SELFPAY | PROVIDERS: PCP Internal Medicine; Visit Provider Physician Assistant ==

== ENCOUNTER 2023-06-21 07:58 | Outpatient (REF) | payer OTHER, SELFPAY ==
--- NOTE | ~2023-06-21 | MM_ITS ---
EXAMINATION: MM SCREENING DIGITAL BREAST TOMOSYNTHESIS, BILATERAL CLINICAL INFORMATION: Screening. Asymptomatic. COMPARISON: Mammography: This study is compared with prior exams dating back to 2012. TECHNIQUE: Digital breast tomosynthesis is performed in both the craniocaudal and mediolateral oblique views along with computer-aided detection (CAD). Synthesized 2D images are generated from the tomosynthesis. FINDINGS: There are scattered areas of fibroglandular density (ACR BI-RADS breast composition Category b). There are no significant masses, abnormal calcifications, or other abnormalities. There is a partially calcified small, oval upper outer quadrant left breast mass in the anterior depth. This represents involuting fibroadenoma. There is a tissue marker in the 6:00 region of the left breast from prior benign percutaneous biopsy. In the right breast, there are 2 biopsy tissue markers in the superior aspect of the right breast and 2 biopsy tissue markers at the inferior aspect of the right breast. Few, benign calcifications are present in each breast. MM/MM tomosynthesis screening BI IMPRESSION: No mammographic evidence of malignancy. ASSESSMENT: BI-RADS BI-RADS 2 - Benign Findings RECOMMENDATION: Routine annual mammography screening. 1 year F/U This examination should not preclude the clinical evaluation of a suspicious palpable abnormality. This patient's information was entered into a reminder system with a target due date for their next mammogram.
== END 2023-06-21 07:59 | disposition home or self-care (01) ==
LOC: HO.MAMMO 07:58
PROVIDERS: PCP Internal Medicine; Visit Provider Internal Medicine
DX: Z12.31 Encounter for screening mammogram for malignant neoplasm of breast (principal)
CPT/HCPCS: 77063; 77067

== ENCOUNTER → 2023-06-21 09:00 | Outpatient (BNV) | payer OTHER, SELFPAY | PROVIDERS: PCP Internal Medicine; Visit Provider Radiology Diagnostic Radiology | DX: Z12.31 Encounter for screening mammogram for malignant neoplasm of breast (principal) | CPT/HCPCS: 77063; 77067 ==

== ENCOUNTER 2023-09-10 09:29 | Outpatient (REF) | payer OTHER, SELFPAY ==
[2023-09-10 13:09] LABS: Appearance Urine Cloudy; Color Urine Yellow; Glucose Urine UA Negative (Negative); Leukocyte Esterase Urine Small (1+) (Negative); Nitrite Urine Negative (Negative); Specific Gravity - Urine 1.025 (1.005-1.025); UMIC TRIGGER UACC YES; Urine Blood Large (3+) (Negative); Urine Ketones Negative (Negative); Urine Protein Trace mg/dL (Neg-Trace)
[2023-09-10 13:12] LABS: Bacteria Urine 4+ (None Seen); Hyaline Casts Urine 0-2 /LPF (0-2); RBC Urine >20 /HPF (0-2); UACC Culture Trigger YES; WBC Urine 21-50 /HPF (0-5)
== END 2023-09-10 09:30 | disposition home or self-care (01) ==
LOC: HO.LAB 09:29
PROVIDERS: PCP Internal Medicine; Visit Provider Internal Medicine
DX: N39.0 Urinary tract infection, site not specified (principal)
CPT/HCPCS: 81001; 81003; 87086; 87088; 87186

== ENCOUNTER 2023-10-01 07:57 | Outpatient (AMB) | payer OTHER, SELFPAY ==
--- NOTE | 2023-10-01 08:26 | A.OFFPC_ITS ---
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 Accompanied by: Self / Same As Patient Allergies Seasonal Allergies Allergy (Intermediate, Verified 10/01/23 08:54) runny nose, sore throat Medication List - Last Reconciled 10/01/23 by Darleen Garcia MD bisacodyl (Dulcolax (bisacodyl)) 10 mg AR DAILY PRN blood pressure monitor As directed calcium polycarbophil (Fiber Laxative (calcium polycarbophil)) 1,250 mg (2 x 625 mg) PO DAILY PRN 30 days cane As directed docusate sodium 200 mg (2 x 100 mg) PO BEDTIME hydrochlorothiazide 25 mg PO DAILY 90 days hydroxyzine HCl 25 mg PO BID PRN polyethylene glycol 3350 (Miralax) 17 grams PO DAILY PRN sertraline 150 mg PO QAM sumatriptan succinate 25 mg PO ONCE 30 days Tobacco use date assessed: 10/01/23 Dental Screening Dental Screen Date: 10/01/23 Did you have a dental visit in the last 12 months?: No Did you have a dental problem in the last 6 months where you did not have access to dental care?: No Was dental information given to patient?: Patient has dentist HPI HPI Comments History of Present Illness Details This is a 57-year-old female with mild recurrent major depression that comes for her physical exam. Depression has been stable with medications and this is follow by Psychiatry. Last mammogram was June of this year and was normal. She follows with OBGYN for her Pap smears. Last colonoscopy was 2013 and has an appointment for December for another colonoscopy. No chest pain or shortness on breath. Has not had a DEXA scan. She is obese and was advised to do diet and exercise. [facility] Medical History Breast calcification, right Physical exam Mild recurrent major depression Right knee pain Essential hypertension ASCUS of cervix with negative high risk HPV Depression Migraines Hypovitaminosis D Pure hypercholesterolemia Surgical History History of endometrial ablation History of breast biopsy History of tubal ligation Family History Father Hypertension CVD (cardiovascular disease) Diabetes Mother Hypertension Diabetes Hypercholesteremia Sister Lung cancer Family/Other FH: mental illness Social History Household Members: Spouse Housing: Apartment Alcohol intake: never Patient Tobacco Use Status: Never used Tobacco e-Cigarette/Vaping Use: Never Used Second Hand Smoke Exposure: No service: No Current occupational status: unemployed 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 1. Little interest or pleasure in doing things: several days 2. Feeling down, depressed, or hopeless: several days 3. Trouble falling or staying asleep, or sleeping too much: several days 4. Feeling tired or having little energy: several days 5. Poor appetite or overeating: several days 6. Feeling bad about yourself - or that you are a failure or have let yourself or your family down: not at all 7. Trouble concentrating on things, such as reading the newspaper or watching television: not at all 8. Moving or speaking so slowly that other people could have noticed. Or the opposite - being so fidgety or restless that you have been moving around a lot more than usual: not at all 9. Thoughts that you would be better off or of hurting yourself in some way: not at all Total score: 5 Depression Screening Interpretation: Positive Depression Screening Follow-up: Existing condition, In treatment, Community Mental Health Worker F/U and Follow- up Visit Requested Depression Screening Done: Yes 14776 - PHQ-9 Billing: Yes Source: Developed by Drs. Clyde Nino, Unique Sotelo, Cm Emerson and colleagues, with an educational charles from [employer]. Thrive Questionnaire Date Thrive assessed: 10/01/23 I am a: Patient What is your living situation today?: I have a steady place to live Within the past 12 months, did the food you bought not last and you didn't have the money to get more?: Never true Within the past 12 months, did you worry whether your food would run out before you got money to buy more?: Never true Do you have trouble paying for medicines?: No Do you have trouble getting transportation to medical appointments?: No Do you have trouble paying your heating and electricity bill?: No Do you have trouble taking care of your child, family member or friend?: No Do you have trouble with day-to-day activities such as bathing, preparing meals, shopping, managing finances, etc.?: No Are you currently unemployed and looking for a job?: No Are you interested in more education?: No Please select the resources that you would like help with: None Currently or been in a relationship where the following occur: no concerns reported THRIVE Score: 0 AUDIT C Alcohol Use Questionnaire (AUDIT-C) 1. How often do you have a drink containing alcohol?: Never Total Score: 0 ИВАН-7 AMB Questionnaire ИВАН-7 Date ИВАН - 7 assessed: 10/01/23 Feeling nervous, anxious, or on edge: 0 = Not at all Not being able to stop or control worryin = Not at all Worrying too much about different things: 0 = Not at all Trouble relaxin = Not at all Being so restless that it is hard to sit still: 0 = Not at all Becoming easily annoyed or irritable: 0 = Not at all Feeling afraid as if something awful might happen: 0 = Not at all Total ИВАН-7 score (0-4 normal; 5-9 mild; 10-14 moderate; 15-21 severe): 0 Source: Developed by Drs. Clyde Nino, Unique Sotelo, Cm Emerson and colleagues, with an educational charles from [employer]. ИВАН-7 Assessment Billing ИВАН-7 Assessment Tool: ИВАН-7 Assessment 04185 Review of Systems Const All systems reviewed & are unremarkable except as noted in HPI and below Card Denies chest pain at rest, Denies chest pain with activity, Denies edema, Denies irregular heart rhythm, Denies claudication, Denies dyspnea, Denies dyspnea on exertion, Denies orthopnea, Denies paroxysmal nocturnal dyspnea and Denies slow heart rate Resp Denies cough, Denies dyspnea and Denies dyspnea on exertion GI Denies abdominal pain, Denies change in bowel habits, Denies excessive flatus, Denies nausea and Denies vomiting Neuro Denies confusion Psych Denies confusion Physical exam (Primary Care) Vital Signs: Last Vital Signs BP 130/70 10/01/23 08:27 BMI result Body Mass Index 36.1 BMI Assessment/Plan discussion: High BMI High, discussed plan: lifestyle, weight reduction, dietary and physical activity Tobacco/Smoking Status: Tobacco use Status Tobacco use date assessed 10/01/23 10/01/23 08:32 Patient Tobacco Use Status Never used Tobacco 10/01/23 08:32 e-Cigarette/Vaping Use Never Used 10/01/23 08:32 PHQ-9: PHQ-9 Score PHQ-9: Total score 5 10/01/23 09:04 Depression Screening Interpretation: Positive Depression Screening Follow-up: Existing condition, In treatment, Community Mental Health Worker F/U and Follow- up Visit Requested Thrive Assessment: Date of Thrive Assessment Date Thrive assessed 10/01/23 10/01/23 08:57 Currently or been in a relationship where the following occur: no concerns reported Const General: No confusion Orientation/consciousness: patient oriented x3 and No confusion HENMT Head: Yes normal to inspection, Yes normocephalic and Yes atraumatic Ears: external ears normal Eyes General: appearance normal, both eyes and all related structures Eyelids: Yes eyelids normal Conjunctivae: conjunctivae normal Neck Neck: Yes normal visual inspection and Yes supple Resp Effort & Inspection: normal respiratory effort Auscultation: clear to auscultation bilaterally Cardio Jugular venous distension: no JVD Rate: regular rate Rhythm: regular rhythm Heart sounds: S1 normal heart sound present and S2 normal heart sound present GI Inspection: Yes normal to inspection Palpation (GI): Soft to palpation and nontender Auscultation: normal bowel sounds Skin General skin exam: no rashes or lesions noted Neuro General: patient oriented x3, no focal motor deficits and No confusion Extrem General: Yes full ROM Psych Appearance: grossly normal Assessment and Plan Assessment & Plan (1) Physical exam: Code(s): Z00.00 - Encounter for general adult medical examination without abnormal findings Plan: Repeat in a year. (2) Mild recurrent major depression: Code(s): F33.0 - Major depressive disorder, recurrent, mild Plan: Continue SSRIs. Follow-up visit requested for Psychiatry. Orders: Orders XR DEXA axial skeleton Today N95.9 - Unspecified menopausal and perimenopausal disorder Lipid Panel Today E78.5 - Hyperlipidemia, unspecified Comprehensive [place]. Panel Fast Today Z00.00 - Encounter for general adult medical examination without abnormal findings Vitamin D 25-OH Total Today E55.9 - Vitamin D deficiency, unspecified Medications: Refilled hydrochlorothiazide 25 mg PO DAILY 90 days 90 tabs 1RF I10 - Essential (primary) hypertension Coding Level of Care Code Est Pt Prev Care 40-64y(44832) Diagnoses Physical exam Z00.00 Mild recurrent major depression F33.0 Additional Codes ИВАН-7 Assessment Billing - ИВАН-7 Assessment Tool: ИВАН-7 Assessment 28553 ([id number]) Time Spent (min) 31
[2023-10-01 08:27] VITALS: BP 130/70; BMI 36.1
== END 2023-10-01 09:06 | disposition home or self-care (01) ==
PROVIDERS: PCP Internal Medicine; Visit Provider Internal Medicine
DX: Z00.00 Encounter for general adult medical examination without abnormal findings (principal); F33.0 Major depressive disorder, recurrent, mild; G43.909 Migraine, unspecified, not intractable, without status migrainosus; I10 Essential (primary) hypertension
CPT/HCPCS: 96127; 99396

== ENCOUNTER 2023-10-04 07:38 | Emergency (ER) | payer OTHER, SELFPAY ==
[2023-10-04 07:50] VITALS: BP 124/82; PULSE 100; RESP 18; TEMP 36.4; O2SAT 96; BMI 35.7
[2023-10-04 08:00] VITALS: BP 152/80; PULSE 107; RESP 14; TEMP 36.9; O2SAT 98
[2023-10-04 08:12] LABS: MANUAL DIFF FLAG NO
[2023-10-04 08:14] LABS: Basophils Percent Auto 0.1 % (0-2); Eosinophils Percent Auto 0.2 % (0-4); Hematocrit 45.4 % (37.0-47.0); Hemoglobin 14.9 g/dl (12.0-16.0); Imm Gran Abs Auto 0.05 X10*3/uL (0.00-0.03); Imm Gran Pct Auto 0.4 % (0.0-0.4); Lymphocytes Absolute Auto 1.3 X10*3/uL (1.2-4.9); Lymphocytes Percent Auto 10.7 % (20-40); Mean Corpuscular HGB Conc 32.8 g/dl (31.0-35.0); Mean Corpuscular Hemoglobin 28.5 pg (27.0-33.0); Mean Platelet Volume 9.7 fL (9.4-12.3); Monocytes Absolute Auto 0.6 X10*3/uL (0.1-1.2); Monocytes Percent Auto 5.3 % (2-11); Neutrophils Absolute Auto 9.7 x10*3/uL (2.0-8.3); Neutrophils Percent Auto 83.3 % (45-73); Platelet Count 225 X10*3/uL (160-400); Red Blood Count 5.22 X10*6/uL (4.20-5.50); Red Cell Distribution Width 13.9 % (11.0-16.0); White Blood Count 11.6 X10*3/uL (4.8-10.8)
[2023-10-04 08:16] LABS: Appearance Urine Cloudy; Color Urine Yellow; Glucose Urine UA Negative (Negative); Leukocyte Esterase Urine Small (1+) (Negative); Nitrite Urine Negative (Negative); PH 5.5 (5.0-9.0); Specific Gravity - Urine >= 1.030 (1.005-1.025); UMIC TRIGGER UACC YES; Urine Blood Negative (Negative); Urine Ketones Negative (Negative); Urine Protein Negative (Neg-Trace)
[2023-10-04 08:31] LABS: Anion Gap 14 (12-20); Bacteria Urine 2+ (None Seen); Hyaline Casts Urine 0-2 /LPF (0-2); RBC Urine 0-2 /HPF (0-2); UACC Culture Trigger YES; WBC Urine 0-5 /HPF (0-5)
[2023-10-04 08:32] LABS: Alanine Aminotransferase 22 U/L (0-31); Albumin Level 4.2 g/dL (3.5-5.0); Alkaline Phosphatase 104 U/L (39-117); Aspartate Amino Transferase 15 U/L (5-31); Bilirubin Total 0.5 mg/dL (0.0-1.0); Blood Urea Nitrogen 22 mg/dL (9-16); Calcium 9.7 mg/dL (8.4-10.2); Carbon Dioxide 25 mmol/L (22-29); Chloride 107 mmol/L (96-108); Estimated Glomerular Filt Rate > 60; Glucose Random 148 mg/dL (60-115); Lipase 23 U/L (8-78); Potassium 3.4 mmol/L (3.3-5.1); Sodium 143 mmol/L (135-145); Total Protein 8.2 g/dL (6.5-8.0)
--- NOTE | 2023-10-04 08:36 | ED.NAVMDI ---
HPI - Nausea/Vomiting/Diarrhea General Chief complaint: Abdominal Pain Stated complaint: stomach pain, n/v/d Time Seen by Provider: 10/04/23 08:13 Source: patient, family, old records reviewed and american sign language interpreter Mode of arrival: ambulatory Limitations: no limitations History of Present Illness ED Provider: TIFFANY HPI Narrative: 57 yo female with PMH of tubal ligation, migraines, HTN, depression here with c/o eating latvian food for dinner last night then waking up with diffuse cramps, low back pain and n/v/d. No fevers, no sick contacts, travel. She did take 3 days of bactrim for UTI at the start of September. No one else is ill from the food. MD elicited complaint: nausea, vomiting, diarrhea and abdominal pain Onset (ago): hour(s) (few) Description of vomiting: watery Description of diarrhea: watery Associated nausea: Yes Associated abdominal pain: Yes Location of pain: diffuse Radiation: left flank Pain consistency: constant Severity: moderate Quality: cramping Exacerbating factors: eating Relieving factors: none Context: possible food poisoning and recent antibiotic use Associated symptoms: loss of appetite, malaise, nausea/vomiting and weakness Related Data Home Medications ?Medication ?Instructions ?Recorded ?Confirmed hydroxyzine HCl 25 mg tablet 25 mg PO BID PRN 04/11/20 10/01/23 sertraline 100 mg tablet 150 mg PO QAM 05/03/20 10/01/23 Previous Rx's ?Medication ?Instructions ?Recorded sumatriptan succinate 25 mg tablet 25 mg PO ONCE 30 days #30 tabs 07/31/21 cane #1 ea 12/06/21 blood pressure monitor #1 ea 11/01/22 bisacodyl 10 mg rectal suppository 10 mg MT DAILY PRN constipation 02/05/23 (Dulcolax (bisacodyl)) #20 ea calcium polycarbophil 625 mg 1,250 mg (2 x 625 mg) PO DAILY PRN 02/05/23 tablet (Fiber Laxative (calcium constipation 30 days #60 tabs polycarbophil)) polyethylene glycol 3350 17 17 g PO DAILY PRN constipation 02/05/23 gram/dose oral powder (Miralax) #510 grams docusate sodium 100 mg capsule 200 mg (2 x 100 mg) PO BEDTIME 06/17/23 #180 caps hydrochlorothiazide 25 mg tablet 25 mg PO DAILY 90 days #90 tabs 10/01/23 ondansetron 4 mg disintegrating 4 mg PO Q8H PRN nausea and 10/04/23 tablet vomiting #20 tabs Allergies Allergy/AdvReac Type Severity Reaction Status Date / Time Seasonal Allergies Allergy Intermediate runny Verified 10/04/23 07:51 nose, sore throat Review of Systems Review of Systems: Constitutional : No Weight loss, No Fever, No Chills ENT/Mouth : No sore throat, No Rhinorrhea Eyes: No Swelling, No Redness Cardiovascular : No Chest Pain, No SOB, NoEdema Respiratory : No Cough, No Sputum, No Wheezing Gastrointestinal : Positive Nausea, Positive Vomiting, positive Diarrhea, positive abdominal Pain, No Hematochezia, No Melena Genitourinary : No Dysuria, No Urinary Frequency, No Hematuria, No Urgency Musculoskeletal : No joint pain, No Myalgias, No Joint Swelling Skin : No Skin Lesions, No rash Neuro : No Weakness, No Numbness, No Dizziness, No Headache Psych : No Anxiety/Panic, No Depression Heme/Lymph: No Bruising, No Lymphadenopathy Endocrine : No Polyuria, No Polydipsia All other systems reviewed and are negative. Gastrointestinal: Gastrointestinal: Reports nausea PMFSH Past Medical History Attestation statement: The following information was validated with the patient. Source: old records reviewed Medical History Breast calcification, right Physical exam Mild recurrent major depression Right knee pain Essential hypertension ASCUS of cervix with negative high risk HPV Depression Migraines Hypovitaminosis D Pure hypercholesterolemia Surgical History History of endometrial ablation History of breast biopsy History of tubal ligation Family History Family History Father Hypertension CVD (cardiovascular disease) Diabetes Mother Hypertension Diabetes Hypercholesteremia Sister Lung cancer Family/Other FH: mental illness Social History Social History Household Members: Spouse Housing: Apartment Alcohol intake: never Patient Tobacco Use Status: Never used Tobacco e-Cigarette/Vaping Use: Never Used Second Hand Smoke Exposure: No Advance Directives: Yes Advance Directives Information Provided: Yes Advance Directives on File: No Do you have a plan to hurt others: No Plan service: No Current occupational status: unemployed 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 Oriented X3. No acute distress. Eyes: Pupils equal, round and reactive to light. ENT: Pharynx normal. Neck: Normal inspection. Neck supple. CVS: Normal heart rate and rhythm. Pulses normal. Respiratory: No respiratory distress. Breath sounds normal. Abdomen: Soft and mild diffuse lower abdominal ttp no rebound or guarding Skin: Skin warm and dry. Normal skin color. Normal skin turgor. Extremities: No lower extremity edema. No calf ttp Neuro: Oriented X 3. No motor deficit. No sensory deficit. Medications Administered Discontinued Medications Generic Name Dose Route Start Last Admin Trade Name Freq PRN Reason Stop Dose Admin Sodium Chloride 1,000 mls @ 999 mls/hr 10/04/23 08:29 10/04/23 10:08 Ns IV 10/04/23 09:29 Infused .Q1H1M ONE Infusion Morphine Sulfate 4 mg 10/04/23 08:31 10/04/23 08:55 Morphine Sulfate 4 Mg/Ml Cartridge IVPUSH 10/04/23 08:32 4 mg ONCE ONE Administration Protocol Ondansetron HCl 4 mg 10/04/23 08:29 10/04/23 08:54 Ondansetron Hcl 4 Mg/2 Ml Vial IVPUSH 10/04/23 08:30 4 mg ONCE ONE Administration Medical Decision Making Medical Decision Making MDM Narrative: 57 yo female with PMH of tubal ligation, migraines, HTN, depression here with c/o n/v/d and abdominal cramps upon waking this morning no localized ttp she is not toxic will need fluids, IV zofran and morphine suspect either viral or food toxicity. If she has copious diarrhea will test for c diff. She did eat latvian food last night no bloody stools reported. Differential Diagnosis Differential Diagnoses: The differential diagnosis associated with the presentation includes viral syndrome, food toxicity, dehydration Admission/Observation Consideration of admission/observation: Escalation of care including admission/observation considered feels better tolerating PO. Lab Data MDM Lab Attestation statement: I reviewed the patient's lab results. 10/04/23 08:07 10/04/23 08:07 Labs: Lab Results 10/04/23 Range/Units 08:07 WBC 11.6 H (4.8-10.8) X10*3/uL RBC 5.22 (4.20-5.50) X10*6/uL Hgb 14.9 (12.0-16.0) g/dl Hct 45.4 (37.0-47.0) % MCV 87.0 (80.0-98.0) fL MCH 28.5 (27.0-33.0) pg MCHC 32.8 (31.0-35.0) g/dl RDW 13.9 (11.0-16.0) % Plt Count 225 (160-400) X10*3/uL MPV 9.7 (9.4-12.3) fL Immature Gran % (Auto) 0.4 (0.0-0.4) % Neut % (Auto) 83.3 H (45-73) % Lymph % (Auto) 10.7 L (20-40) % Cole % (Auto) 5.3 (2-11) % Eos % (Auto) 0.2 (0-4) % Baso % (Auto) 0.1 (0-2) % Lymph # (Auto) 1.3 (1.2-4.9) X10*3/uL Cole # (Auto) 0.6 (0.1-1.2) X10*3/uL Eos # (Auto) 0.0 (0.0-0.4) X10*3/uL Baso # (Auto) 0.0 (0.0-0.2) X10*3/uL Abs Immat Gran (auto) 0.05 H (0.00-0.03) X10*3/uL Absolute Neuts (auto) 9.7 H (2.0-8.3) x10*3/uL Absolute Nucleated RBC 0.000 (0.0-0.012) X10*3/uL Nucleated RBC % (auto) 0.0 (0.0-0.2) /100WBC Sodium 143 (135-145) mmol/L Potassium 3.4 (3.3-5.1) mmol/L Chloride 107 (96-108) mmol/L Carbon Dioxide 25 (22-29) mmol/L Anion Gap 14 (12-20) BUN 22 H (9-16) mg/dL Creatinine 0.64 (0.5-1.4) mg/dL Estim Creat Clear Calc 94.0 Estimated GFR > 60 Random Glucose 148 H (60-115) mg/dL Calcium 9.7 (8.4-10.2) mg/dL Total Bilirubin 0.5 (0.0-1.0) mg/dL AST 15 (5-31) U/L ALT 22 (0-31) U/L Alkaline Phosphatase 104 (39-117) U/L Total Protein 8.2 H (6.5-8.0) g/dL Albumin 4.2 (3.5-5.0) g/dL Lipase 23 (8-78) U/L Urine Color Yellow Urine Appearance Cloudy Urine pH 5.5 (5.0-9.0) Ur Specific [place] >= 1.030 H (1.005-1.025) Urine Protein Negative (Neg-Trace) mg/dL Urine Glucose (UA) Negative (Negative) mg/dL Urine Ketones Negative (Negative) mg/dL Urine Blood Negative (Negative) Urine Nitrite Negative (Negative) Ur Leukocyte Esterase Small (1+) H (Negative) Urine RBC 0-2 (0-2) /HPF Urine WBC 0-5 (0-5) /HPF Ur Squamous Epith Cells 6-10 (0-2) /HPF Urine Bacteria 2+ (None Seen) Hyaline Casts 0-2 (0-2) /LPF Independent Historian Clinical information obtained from an independent historian. History obtained from or confirmed by: Spouse External Record Review External record reviewed: Inpatient record Prescription Management I considered prescription management with: Pain Medication and Other Discharge Plan Discharge Clinical Impression: Nausea vomiting and diarrhea Abdominal pain Qualifiers: Abdominal location: generalized Qualified Code(s): R10.84 - Generalized abdominal pain Patient Disposition: Home, Self-Care Instructions: Acute Nausea and Vomiting (ED), Acute Diarrhea (ED), Abdominal Pain (ED) Additional Instructions: return for worsening symptoms fevers, increased pain, bloody stools, unable to eat or drink or any other complaints bland diet for 24 hours then advance slowly Prescriptions: New ondansetron 4 mg tablet,disintegrating 4 mg PO Q8H PRN (Reason: nausea and vomiting) Qty: 20 0RF No Action sumatriptan succinate 25 mg tablet 25 mg PO ONCE 30 Days Qty: 30 0RF (DME) cane Device See Rx Instructions .Route Qty: 1 0RF Rx Instructions: As directed (DME) blood pressure monitor Kit See Rx Instructions .Route Qty: 1 0RF Rx Instructions: As directed docusate sodium 100 mg capsule 200 mg PO BEDTIME Qty: 180 1RF hydroxyzine HCl 25 mg tablet 25 mg PO BID PRN hydrochlorothiazide 25 mg tablet 25 mg PO DAILY 90 Days Qty: 90 1RF sertraline 100 mg tablet 150 mg PO QAM bisacodyl [Dulcolax (bisacodyl)] 10 mg suppository 10 mg MT DAILY PRN (Reason: constipation) Qty: 20 2RF polyethylene glycol 3350 [Miralax] 17 gram/dose powder 17 g PO DAILY PRN (Reason: constipation) Qty: 510 6RF calcium polycarbophil [Fiber Laxative (ca polycarbo)] 625 mg tablet 1,250 mg PO DAILY PRN (Reason: constipation) 30 Days Qty: 60 3RF Print Language: Kazakh
[2023-10-04] MEDS: ondansetron HCL 4 MG/2 ML VIAL IVPUSH (08:54)
[2023-10-04] MEDS: 0.9 % Sodium Chloride 1,000 ML 999 ML IV (08:54)
[2023-10-04 08:55] VITALS: RESP 18
[2023-10-04] MEDS: Morphine Sulfate 4 MG/ML CARTRIDGE IVPUSH (08:55)
[2023-10-04 10:00] VITALS: BP 139/73; PULSE 100; RESP 20; TEMP 36.6; O2SAT 96
[2023-10-04 12:03] VITALS: BP 139/73; PULSE 100; RESP 20; TEMP 36.6; O2SAT 96
== END 2023-10-04 12:04 | disposition home or self-care (01) ==
PROVIDERS: Emergency Provider Emergency Medicine; PCP Internal Medicine
DX: R11.2 Nausea with vomiting, unspecified (principal); R10.84 Generalized abdominal pain; Z79.899 Other long term (current) drug therapy
CPT/HCPCS: 36415; 80053; 81001; 83690; 85025; 87086; 96361; 96374; 96375; 99283; 99284; J2270; J2405

== ENCOUNTER 2023-10-08 08:38 | Outpatient (REF) | payer OTHER, SELFPAY ==
[2023-10-08 09:51] LABS: Leukocytes Stool Qualitative NEGATIVE (NEGATIVE)
[2023-10-08 10:42] LABS: CDiff Gene PCR NEGATIVE (Negative)
== END 2023-10-08 08:39 | disposition home or self-care (01) ==
LOC: HO.LNP 08:38
PROVIDERS: Visit Provider Internal Medicine
DX: R19.7 Diarrhea, unspecified (principal)
CPT/HCPCS: 87329; 87493; 89055

== ENCOUNTER 2023-10-18 07:46 | Outpatient (REF) | payer OTHER, SELFPAY ==
[2023-10-18 09:10] LABS: Alanine Aminotransferase 23 U/L (0-31); Alkaline Phosphatase 88 U/L (39-117); Anion Gap 13 (12-20); Aspartate Amino Transferase 15 U/L (5-31); Bilirubin Total 0.4 mg/dL (0.0-1.0); Blood Urea Nitrogen 12 mg/dL (9-16); Calcium 9.7 mg/dL (8.4-10.2); Carbon Dioxide 27 mmol/L (22-29); Chloride 106 mmol/L (96-108); Cholesterol 196 mg/dL (<200); Estimated Glomerular Filt Rate > 60; Glucose Fasting 109 mg/dL (60-99); HDL Cholesterol 48 mg/dL (>40); LDL Cholesterol Calculated 130 mg/dL (<100); Potassium 3.5 mmol/L (3.3-5.1); Sodium 142 mmol/L (135-145); Total Protein 7.6 g/dL (6.5-8.0); Triglycerides 92 mg/dL (<150)
[2023-10-18 09:28] LABS: Vitamin D 25-OH Total 26.9 ng/mL (>30)
== END 2023-10-18 07:47 | disposition home or self-care (01) ==
LOC: HO.LAB 07:46
PROVIDERS: PCP Internal Medicine; Visit Provider Internal Medicine
DX: Z00.00 Encounter for general adult medical examination without abnormal findings (principal); E78.5 Hyperlipidemia, unspecified; E55.9 Vitamin D deficiency, unspecified; N39.0 Urinary tract infection, site not specified
CPT/HCPCS: 36415; 80053; 80061; 82306

== ENCOUNTER 2023-10-23 08:00 | Outpatient (REF) | payer OTHER, SELFPAY ==
--- NOTE | ~2023-10-23 | MM_ITS ---
EXAMINATION: BONE DENSITOMETRY CLINICAL INDICATION: Unspecified menopausal and perimenopausal disorder. COMPARISON: This is the patient's baseline examination. TECHNIQUE: Using a [employer] DXA System (software version: 13.1) manufactured by [email or web address], dual-energy x-ray absorptiometry was performed of the lumbar spine and left hip. The images are of good technical quality. Summary results are attached. FINDINGS: LEFT FEMUR, NECK: BMD 1.006 g/cm2, Z-score 0.6, T-score -0.2, normal. LEFT FEMUR, TOTAL: BMD 1.220 g/cm2, Z-score 2.2, T-score 1.7, normal. AP SPINE L1-L4: BMD 1.141 g/cm2, Z-score 0.3, T-score -0.3, normal. IDENTIFIED RISK FACTORS: Menopause. HISTORY OF FRACTURE: None listed. MEDICATIONS: None listed. MM/XR DEXA axial skeleton IMPRESSION: 1. DIAGNOSIS: Normal bone density based on the lowest T-score value of -0.3 in the lumbar spine applying World Health Organization criteria. 2. 10-YEAR FRACTURE RISK PREDICTION, FRAX: According to the guidelines, FRAX calculation should only be performed on patients in the osteopenia bone density category. Therefore, FRAX was not performed on this patient. 3. Treatment Recommendations: NOF guidelines recommend consideration for treatment in postmenopausal women and men age 50 and older presenting with the following: -A hip or vertebral (clinical or morphometric) fracture. -T-score less than or equal to -2.5 at the femoral neck or spine after appropriate evaluation to exclude secondary causes. -Low bone mass at the hip or spine and a 10-year fracture probability by FRAX of greater than or equal to 3% for hip fracture or greater than or equal to 20% for major osteoporotic fracture based on the [place] adapted WHO algorithm. 4. Other Recommendations: All treatment decisions require clinical judgment and consideration of individual patient factors, including patient preferences, comorbidities, previous drug use, risk factors not captured in the FRAX model (e.g. frailty, falls, vitamin D deficiency, increased bone turnover, interval significant decline in bone density) and possible under or overestimation of fracture risk by FRAX. FUTURE SCAN RECOMMENDATION: People with diagnosed cases of osteoporosis or at high risk for fracture should have regular bone mineral density tests. For patients eligible for Medicare, routine testing is allowed once every 2 years. The testing frequency can be increased to one year for patients who have rapidly progressing disease, those who are receiving or discontinuing medical therapy to restore bone mass, or have additional risk factors.
== END 2023-10-23 08:01 | disposition home or self-care (01) ==
LOC: HO.MAMMO 08:00
PROVIDERS: PCP Internal Medicine; Visit Provider Internal Medicine
DX: Z13.820 Encounter for screening for osteoporosis (principal); Z78.0 Asymptomatic menopausal state
CPT/HCPCS: 77080

== ENCOUNTER → 2024-02-27 09:08 | Outpatient (BNVA) | payer OTHER, SELFPAY | PROVIDERS: PCP Internal Medicine ==

== ENCOUNTER 2024-04-06 07:36 | Outpatient (REF) | payer OTHER, SELFPAY ==
[2024-04-06 09:42] LABS: Influenza A PCR NEGATIVE (Negative); Influenza B PCR NEGATIVE (Negative); Resp Syncy Virus RNA Qual PCR NEGATIVE (Negative); SARS COV2 PCR INHOUSE NEGATIVE (Negative)
== END 2024-04-06 07:37 | disposition home or self-care (01) ==
LOC: HO.LAB 07:36
PROVIDERS: PCP Internal Medicine; Visit Provider Internal Medicine
DX: R09.89 Other specified symptoms and signs involving the circulatory and respiratory systems (principal); F33.0 Major depressive disorder, recurrent, mild; K59.09 Other constipation; I10 Essential (primary) hypertension; E78.00 Pure hypercholesterolemia, unspecified; G43.909 Migraine, unspecified, not intractable, without status migrainosus; E55.9 Vitamin D deficiency, unspecified
CPT/HCPCS: 0241U; 99212

== ENCOUNTER 2024-04-06 07:36 | Outpatient (AMB) | payer OTHER, SELFPAY ==
--- NOTE | 2024-04-06 07:50 | MHC.PC.OV ---
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: No Accompanied by: Self / Same As Patient Allergies Seasonal Allergies Allergy (Intermediate, Verified 04/06/24 08:16) runny nose, sore throat Medication List - Last Reconciled 04/06/24 by Darleen Garcia MD bisacodyl (Dulcolax (bisacodyl)) 10 mg DE DAILY PRN blood pressure monitor As directed calcium polycarbophil (Fiber Laxative (calcium polycarbophil)) 1,250 mg (2 x 625 mg) PO DAILY PRN 30 days cane As directed docusate sodium 200 mg (2 x 100 mg) PO BEDTIME hydrochlorothiazide 25 mg PO DAILY 90 days hydroxyzine HCl 25 mg PO BID PRN ondansetron 4 mg PO Q8H PRN polyethylene glycol 3350 (Miralax) 17 grams PO DAILY PRN sertraline 150 mg PO QAM sumatriptan succinate 25 mg PO ONCE 30 days Tobacco use date assessed: 10/01/23 Dental Screening Dental Screen Date: 10/01/23 HPI HPI Comments History of Present Illness Details The patient is a 58-year-old female presenting with complaints of nasal congestion persistently for the past week. She reports this congestion occurs seasonally but has not sought specific medication for this issue. Additionally, the patient is here for follow-up related to her chronic conditions, including essential hypertension, anxiety disorder, constipation, and migraine headaches. Her essential hypertension is currently managed with hydrochlorothiazide 25 mg, which she admits to not taking today. For her anxiety, she takes a medication called Droxicina as needed. She also uses ondansetron for nausea, again on an as-needed basis. For constipation, she is prescribed multiple medications including Dulcolax, Fiberlax, and MiraLax, all used as necessary. Her migraine episodes are managed with isometriptan 25 mg as needed, which the patient describes as regular but without elaboration on frequency or severity. She denies experiencing chest pain or shortness of breath related to these conditions. The sertraline medication which is part of her treatment for psychiatric needs is also documented at 150 mg daily. Mild major depression well controlled with SSRIs. [facility] Medical History Breast calcification, right Physical exam Mild recurrent major depression Right knee pain Essential hypertension ASCUS of cervix with negative high risk HPV Depression Migraines Hypovitaminosis D Pure hypercholesterolemia Surgical History History of endometrial ablation History of breast biopsy History of tubal ligation Family History Father Hypertension CVD (cardiovascular disease) Diabetes Mother Hypertension Diabetes Hypercholesteremia Sister Lung cancer Family/Other FH: mental illness Social History Household Members: Spouse Housing: Apartment Alcohol intake: never Patient Tobacco Use Status: Never used Tobacco e-Cigarette/Vaping Use: Never Used Second Hand Smoke Exposure: No service: No Current occupational status: unemployed 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 Clyde Nino, Unique Sotelo, Cm Emerson and colleagues, with an educational charles from [employer]. Review of Systems Const All systems reviewed & are unremarkable except as noted in HPI and below Card Denies chest pain at rest, Denies chest pain with activity, Denies edema, Denies irregular heart rhythm, Denies claudication, Denies dyspnea, Denies dyspnea on exertion, Denies orthopnea, Denies paroxysmal nocturnal dyspnea and Denies slow heart rate Resp Denies cough, Denies dyspnea and Denies dyspnea on exertion Physical exam (Primary Care) Vital Signs: Last Vital Signs BP 146/84 H 04/06/24 07:51 BMI result Body Mass Index 35.5 BMI Assessment/Plan discussion: High BMI High, discussed plan: lifestyle, weight reduction, dietary and physical activity Tobacco/Smoking Status: Tobacco use Status Tobacco use date assessed 10/01/23 04/06/24 07:57 Patient Tobacco Use Status Never used Tobacco 04/06/24 07:57 e-Cigarette/Vaping Use Never Used 04/06/24 07:57 Thrive Assessment: Date of Thrive Assessment Date Thrive assessed 10/01/23 04/06/24 07:57 Resp Effort & Inspection: normal respiratory effort Auscultation: clear to auscultation bilaterally Cardio Jugular venous distension: no JVD Rate: regular rate Rhythm: regular rhythm Heart sounds: S1 normal heart sound present and S2 normal heart sound present Extrem General: Yes full ROM Psych Appearance: grossly normal Coding Level of Care Code Est Pt Level 4 (46438) Complex EM visit Add On G2211 Diagnoses Mild recurrent major depression F33.0 Chronic constipation K59.09 Essential hypertension I10 Pure hypercholesterolemia E78.00 Migraine without status migrainosus, not intractable, unspecified migraine type G43.909 Migraine type: unspecified Status migrainosus presence: without status migrainosus Intractability: not intractable Hypovitaminosis D E55.9 Time Spent (min) 22 Assessment & Plan Assessment & Plan (1) Mild recurrent major depression: Code(s): F33.0 - Major depressive disorder, recurrent, mild Category: Medical (2) Chronic constipation: Comment: bowel regimen Code(s): K59.09 - Other constipation Category: Medical (3) Essential hypertension: Code(s): I10 - Essential (primary) hypertension Category: Medical (4) Pure hypercholesterolemia: Code(s): E78.00 - Pure hypercholesterolemia, unspecified Category: Medical (5) Migraines: Code(s): G43.909 - Migraine, unspecified, not intractable, without status migrainosus Category: Medical Qualifiers: Migraine type: unspecified Status migrainosus presence: without status migrainosus Intractability: not intractable Qualified Code(s): G43.909 - Migraine, unspecified, not intractable, without status migrainosus (6) Hypovitaminosis D: Code(s): E55.9 - Vitamin D deficiency, unspecified Category: Medical Plan - Conduct COVID-19, influenza, and RSV testing to evaluate the nasal congestion. - Monitor blood pressure; if consistently above 140/90 mmHg, consider adjusting antihypertensive therapy. - Follow-up on the current psychiatric treatment plan for anxiety and offer continued support as needed. - Continue current constipation management regimen, assessing efficacy and making adjustments as necessary. - Evaluate the efficacy and frequency of migraine treatment with sumatriptan; adjust based on current symptomology. Patient was informed and verbally consented to the use of an ambient scribe for clinic note documentation during this visit. I discussed with the patient the need to conduct COVID-19, influenza, and RSV testing due to the presence of nasal congestion for one week. The plan to review her blood pressure and its management was addressed, with considerations to alter medication if readings remain elevated. The patient was informed of the importance of maintaining current psychiatric care for anxiety and the need to continue monitoring all chronic conditions and medications. We agreed on a plan to regularly assess the effectiveness of the current treatment regimen and make necessary changes. Orders: Orders SARS-CoV2/FLU/RSV Today R09.89 - Other specified symptoms and signs involving the circulatory and respiratory systems Patient Instructions: - Please proceed to the hospital for COVID-19, influenza, and RSV tests as instructed. - Monitor your blood pressure regularly. If readings persistently exceed 140/90 mmHg, report back to us. - Adhere to the current medication schedule for anxiety, constipation, and migraines, making adjustments as necessary based on symptoms. - Follow guidance on psychiatric care and ensure consistent follow-up with your psychiatrist.
[2024-04-06 07:51] VITALS: BP 146/84; BMI 35.5
== END 2024-04-06 08:26 | disposition home or self-care (01) ==
PROVIDERS: PCP Internal Medicine; Visit Provider Internal Medicine
DX: F33.0 Major depressive disorder, recurrent, mild (principal); K59.09 Other constipation; I10 Essential (primary) hypertension; E78.00 Pure hypercholesterolemia, unspecified; G43.909 Migraine, unspecified, not intractable, without status migrainosus; E55.9 Vitamin D deficiency, unspecified

== ENCOUNTER → 2024-04-24 08:45 | Outpatient (BNVA) | payer OTHER, SELFPAY | PROVIDERS: PCP Internal Medicine ==

== ENCOUNTER 2024-05-18 08:20 | Outpatient (REF) | payer OTHER, SELFPAY ==
--- OUTSIDE RECORDS SUMMARY | 2024-05-18 10:39 | XMS_ITS | Encounter Summary ---
Author Organization [facility] Address [address] [place] [address] Care Team Providers Care Weight Loss Physician Name Role Phone Unavailable Primary Care Provider Unavailabl e Encounter Details Date Type Department Care Team (Latest Contact Info) Description 07/24/2021 Abstract [facility] CONVERSIONS Dental, Provider, DDS Social History Tobacco Use Types Packs/Day Years Used Date Smoking Tobacco: Never Assessed Comments Unknown Sex and Gender Information Value Date Recorded Sex Assigned at Female 02/12/2022 10:14 AM EDT Legal Sex Female 10:14 AM EDT Gender Identity Female 02/12/2022 10:14 AM EDT Sexual Orientation Straight 02/12/2022 10 :14 AM EDT documented as of this encounter Plan of Treatment Not on file documented as of this encounter Visit Diagnoses Not on filedocumented in this encounter
--- OUTSIDE RECORDS SUMMARY | 2024-05-18 10:39 | XMS_ITS | Clinical Summary ---
Author Organization [facility] Address [address] [place] [address] Care Team Providers Care Iron Cutter Name Role Phone Unavailable Primary Care Provider Unavailabl e Immunizations Name Administration Dates Next Due Pfizer Covid-19 Vaccine 12+ Bivalent 04/23/2022 Social History Tobacco Use Types Packs/Day Years Used Date Smoking Tobacco: Never Assessed Comments Unknown Sex and Gender Information Value Date Recorded Sex Assigned at Female 02/12/2022 10:14 AM EDT Legal Sex Female 10:14 AM EDT Gender Identity Female 02/12/2022 10:14 AM EDT Sexual Orientation Straight 02/12/2022 10 :14 AM EDT Plan of Treatment Health Maintenance Due Date Last Done Comments CT Colonography 1963 Colonoscopy 1963 Colorectal Cancer Screening 1963 Depression Screening 1963 FIT DNA/Cologuard 1963 FIT 1963 FOBT 1963 HIV Screening 1963 Lipid Panel 1963 SDOH Screening 1963 Sigmoidoscopy 1963 Alcohol/Substance Use Screening 1975 Tobacco Screening 1975 Hepatitis C Screening 11/04/1981 Pap Smear 11/04/1984 Cervical Cancer Screening 11/04/1993 HPV/Cotest 11/04/1993 Mammogram 2003 Pneumococcal Vaccine: 50+ Years (2 of 2 - PCV) 03/12/2018 03/12/2017, 07/13/2016 Zoster Vaccines (2 of 2) 03/27/2022 01/30/2022 COVID-19 Vaccine ( season) 2023 04/23/2022, 10/05/2021, 08/22/2021, Additional history exists Influenza Vaccine (#1) 2023 , 01/04/2021, 01/02/2020, Additional history exists DTaP/Tdap/Td Vaccines (2 - Td or Tdap) 01/19/2026 01/20/2016, 09/05/2012, 10/21/2009, Additional history exists RSV Patients and Patients Aged 60 years or older (1 - 1-dose 75+ series) 11/04/2038 Hepatitis B Vaccines Completed 01/23/2011, 03/08/2008, 02/05/2000 Pneumococcal Vaccine: Pediatrics (0 to 5 Years) and At-Risk Patients (6 to 49) Years) Aged Out 03/12/2017, 07/13/2016 No longer eligibl e based on patient's age to complete this topic HIB Vaccines Aged Out No longer eligi ble based on patient's age to complete this topic HPV Vaccines Aged Out No longer eligi ble based on patient's age to complete this topic Hepatitis A Vaccines Aged Out No long er eligible based on patient's age to complete this topic IPV Vaccines Aged Out No longer eligi ble based on patient's age to complete this topic Meningococcal Vaccine Aged Out No shilo ángela eligible based on patient's age to complete this topic RSV under 20 months Aged Out No longe r eligible based on patient's age to complete this topic Rotavirus Vaccines Aged Out No longer eligible based on patient's age to complete this topic Insurance [facility]
== END 2024-05-18 08:21 | disposition home or self-care (01) ==
LOC: HO.LNP 08:20
PROVIDERS: PCP Internal Medicine; Visit Provider Obstetrics & Gynecology
DX: Z01.419 Encounter for gynecological examination (general) (routine) without abnormal findings (principal)
CPT/HCPCS: 87626; 88175; 99396; 99459

== ENCOUNTER 2024-06-26 07:45 | Outpatient (REF) | payer OTHER, SELFPAY ==
--- OUTSIDE RECORDS SUMMARY | 2024-06-26 07:48 | XMS_ITS | Encounter Summary ---
Author Organization [facility] Address [address] [place] [address] Care Team Providers Care University Internship Name Role Phone Unavailable Primary Care Provider Unavailabl e Encounter Details Date Type Department Care Team (Latest Contact Info) Description 07/24/2021 Abstract [facility] CONVERSIONS Dental, Provider, DDS Social History Tobacco Use Types Packs/Day Years Used Date Smoking Tobacco: Never Assessed Comments Unknown Sex and Gender Information Value Date Recorded Sex Assigned at Female 02/12/2022 10:14 AM EDT Legal Sex Female 10:14 AM EDT Gender Identity Female 02/12/2022 10:14 AM EDT Sexual Orientation Straight 02/12/2022 10 :14 AM EDT documented as of this encounter Plan of Treatment Upcoming Encounters Date Type Department Care Team (Late st Contact Info) Description 07/24/2024 9:00 AM EDT Office Visit [facility] ADULT DENTAL [address] [place] [address] Ismael Trevino DDS [address] [place] [address] documented as of this encounter Visit Diagnoses Not on filedocumented in this encounter
--- OUTSIDE RECORDS SUMMARY | 2024-06-26 07:48 | XMS_ITS | Encounter Summary ---
Author Organization [facility] Address [address] [place] [address] Care Team Providers Care Folding Machine Tender Name Role Phone Unavailable Primary Care Provider Unavailabl e Reason for Visit * Reason Comments Dental Pain Upper left side Encounter Details Date Type Department Care Team (Late st Contact Info) Description 06/12/2024 11:30 AM EST Office Visit [facility] ADULT DENTAL [address] [place] [address] Ismael Trevino DDS [address] [place] [address] Social History Tobacco Use Types Packs/Day Years Used Date Smoking Tobacco: Never Smokeless Tobacco: Never Tobacco Cessation:Counseling Given: Not Answered Alcohol Use Standard Drinks/Week Comments Never 0 (1 standard drink = 0.6 oz pur e alcohol) Comments Unknown Sex and Gender Information Value Date Recorded Sex Assigned at Female 02/12/2022 10:14 AM EDT Legal Sex Female 10:14 AM EDT Gender Identity Female 02/12/2022 10:14 AM EDT Sexual Orientation Straight 02/12/2022 10 :14 AM EDT documented as of this encounter Progress Notes * Ismael Trevino DDS - 06/12/2024 11:30 AM EST Dental procedures in this visit [id number] - PALLIATIVE (EMERGENCY) TREATMENT OF DENTAL PAIN - MINOR PROCEDURE (Completed) Service provider: Ismael Trevino DDS Billing provider: Ismael Trevino DDS [id number] - INTRAORAL - PERIAPICAL FIRST RADIOGRAPHIC IMAGE (Completed) Service provider: Ismael Trevino DDS Billing provider: Ismael Trevino DDS [id number] - BITEWING - SINGLE RADIOGRAPHIC IMAGE (Completed) Service provider: Ismael Trevino DDS Billing provider: Ismael Trevino DDS [id number] - CASE PRESENTATION, DETAILED AND EXTENSIVE TREATMENT PLANNING (Completed) Service provider: Ismael Trevino DDS Billing provider: Ismael Trevino DDS Patient ID: Yulissa Zimmerman is a 58 y.o. female. Time Out: Timeout Date: 06/12/24 (upper left side pain), Timeout Time: 1058 Location: [facility] Tooth: #13, #14, and #16 Procedure: Exam Verified the above with patient, speech therapy assistant, and provider. Confirmed via patient's chart, intraorally and by radiographs. Covering Machine Tender: not applicable Chief Complaint Patient presents with Dental Pain Upper left side Medical Hx: Vitals: There were no vitals taken for this visit. Past Medical History: Diagnosis Date Anxiety Depression Hypertension Medications: Outpatient Encounter Medications as of 06/12/2024 Medication Sig Dispense Refill Bisacodyl EC 5 MG EC tablet TOME DOS TABLETAS POR V A ORAL TODOS LOS D AL ACOSTARSE FOR 2 DAYS fluticasone (Flonase) 50 MCG/ACT nasal spray ROCIAR 2 VECES EN CADA [place] DE [place] A DIARIOFOR ALLERGIC RHINITIS FOR 30 DAYS hydroCHLOROthiazide (HYDRODiuril) 25 MG tablet TOME 1 TABLETA POR V A ORAL TODOS LOS D losartan (Cozaar) 25 MG tablet TOME 1 TABLETA POR V A ORAL TODOS LOS D omeprazole (PriLOSEC) [address] capsule Take 1 capsule by mouth Once per day. hydrOXYzine HCl (Atarax) 25 MG tablet TAKE 1 TABLET BY MOUTH EVERY NIGHT AT BEDTIME NEEDED PARA ANSIEDAD/PARA DORMIR No facility-administered encounter medications on file as of 06/12/2024. Subjective: Pain: mild Duration: 3 days Objective: Tooth: #13, #14, and #16 Radiographs Taken: BW(s) and PA(s) Radiographic Findings: Decay, Fractured/Broken Tooth, and Fractured/Missing Filling Clinical Findings: Exam revealed a burn lesion on the buccal marginal gingiva #13. Tooth #14 revealed deep occlusal, distal and lingual caries. Tooth #16 is located apical to the remainder of the occlusal plane; appears to be submerged. Deep pockets noted around #16. Sever bleeding on probing observed. Advised her to use warm salt water rinses. Swelling: No swelling Endo Testing: Cold: Hypersensitive, lingering Percussion: Pain Palpation: Normal, no pain Perio: 6mm pockets around #16 Other Findings: Missing #15 Diagnosis: Symptomatic apical periodontitis Assessment/Plan: Extraction #16; RCT #14 Prescriptions: Amoxicillin 500mg Pt tolerated procedure well, all questions answered. Dismissed in good condition. NV: Extraction #16 Itinerant Teacher Assistant: Michael Carpenter Dentist: Ismael Trevino DDS documented in this encounter Plan of Treatment Upcoming Encounters Date Type Department Care Team (Late st Contact Info) Description 07/24/2024 9:00 AM EDT Office Visit [facility] ADULT DENTAL [address] [place] [address] Ismael rTevino DDS [address] [place] [address] Scheduled Orders Name Type Priority Associated Diagnoses Orde r Schedule 16 16 EXTRACTION, ERUPTED TOOTH OR EXPOSED ROOT (ELEVATION/FORCEPS REMOVAL) [facility] [address] [facility]/12/[facility]24 14 14 ENDODONTIC THERAPY, MOLAR TOOTH Dental Routine [address] [facility] 06/12/2024 14 14 CROWN - PORCELAIN/CERAMIC Dental Routine 1 Occurrences starting 06/12/2024 14 14 PREFABRICATED POST AND CORE IN ADDITION TO CROWN Dental Routine [address] [facility] 06/12/2024 PROPHYLAXIS - ADULT Dental Routine 1 Occ urrences starting 06/12/2024 PROPHYLAXIS - ADULT Dental Routine 1 Occ urrences starting 06/12/2024 INTRAORAL - COMPLETE SERIES OF RADIOGRAPHIC IMAGES Dental Routine [address] 06/12/2024 documented as of this encounter Procedures Procedure Name Priority Date/Time Associated Diagnosis Comments PALLIATIVE (EMERGENCY) TREATMENT OF DENTAL PAIN - MINOR PROCEDURE Routine 06/12/2024 11:30 AM EST INTRAORAL - PERIAPICAL FIRST RADIOGRAPHIC IMAGE Routine 06/12/2024 11:30 AM EST CASE PRESENTATION, DETAILED AND EXTENSIVE TREATMENT PLANNING Routine 06/12/2024 11:30 AM EST BITEWING - SINGLE RADIOGRAPHIC IMAGE Routine 06/12/2024 11:30 AM EST documented in this encounter Visit Diagnoses Not on filedocumented in this encounter
--- OUTSIDE RECORDS SUMMARY | 2024-06-26 07:48 | XMS_ITS | Encounter Summary ---
Author Organization [employer] Address [address] [place] [address] Care Team Providers Care Blanking Machine Operator Name Role Phone Unavailable Primary Care Provider Unavailabl e Reason for Visit * Reason Onset Date Comments unable to post portal PAR 06/12/2024 Encounter Details Date Type Department Care Team (Late st Contact Info) Description 06/12/2024 Telephone [facility] ADULT DENTAL [address] [place] [address] Sarahy Edwards DDS [address] [place] [address] unable to post portal PAR Social History Tobacco Use Types Packs/Day Years Used Date Smoking Tobacco: Never Smokeless Tobacco: Never Alcohol Use Standard Drinks/Week Comments Never 0 (1 standard drink = 0.6 oz pur e alcohol) Comments Unknown Sex and Gender Information Value Date Recorded Sex Assigned at Female 02/12/2022 10:14 AM EDT Legal Sex Female 10:14 AM EDT Gender Identity Female 02/12/2022 10:14 AM EDT Sexual Orientation Straight 02/12/2022 10 :14 AM EDT documented as of this encounter Miscellaneous Notes * Telephone Encounter - Brianda Castellon - 06/12/2024 8:32 AM EST Patient coming in for ER visit in dental for 11:30. Insurance active in [employer]. Unable to run or postinsurance through portal DR documented in this encounter Plan of Treatment Upcoming Encounters Date Type Department Care Team (Late st Contact Info) Description 07/24/2024 9:00 AM EDT Office Visit [facility] ADULT DENTAL [address] [place] [address] Ismael Trevino DDS [address] [place], [place] [id number] documented as of this encounter Visit Diagnoses Not on filedocumented in this encounter
--- OUTSIDE RECORDS SUMMARY | 2024-06-26 07:48 | XMS_ITS ---
Author Organization [facility] Care Team Providers Care Rip/Mould Operator Name Role Phone Flores Whitfield Unavailable Unavailable Isiah INCISING MACHINE OPERATOR, David Reed Unavailable Unavailable Fina Hoover Unavailable Allergies and adverse reactions Code CodeSystem Substance Reaction Severity StartDate Concern Status 6922 RXNORM Flagyl Unknown 06/18/2024 active Adhesive Tape Unknown 06/18/2024 active Care Team Name Role Address Phone Organization Dates Flores Whitfield PCP [address] [place] [address], [facility] (Office): : [facility] 06/18/2024 - 06/24/2024 David Joyce NP Attending Physician [address] [place] [address] (Office): [facility] 06/18/2024 - 06/24/2024 Fina Hoover Attending Physician [address] [place] [address], [facility] (Office): [facility] 06/18/2024 - 06/24/2024 Goals Section Description Status Target Date Yulissa will be free of falls through the revi ew date. Active 09/16/2024 Yulissa will demonstrate t he appropriate use of (SPECIFY adaptive device(s) to increase ability in through the review date. Active 09/16/2024 Yulissa will maintain or d evelop clean and intact skin by the review date. Active 09/16/2024 Yulissa will participate i n Programs 3x daily and be open to room visits through next review date. Active 09/16/2024 Yulissa will verbalize dominic quate relief of pain or ability to cope with incompletely relieved pain through the review date. Active 09/16/2024 the resident/HCP/Guardian's Advanced Directives will be honored through next review Active 09/16/2024 Functional Status Code Name Recorded Time Value Entered By Chair/igp-hb-exzam transfer 06/24/2024 Setup or liz n-up assistance [email or web address] Eating 06/23/2024 Independent acoke Lower body dressing 06/24/2024 Setup or clean-up ass istance [email or web address] Lying to sitting on side of bed 06/24/2024 Setup or clean-up assistance [email or web address] Oral hygiene 06/24/2024 Setup or clean-up assistance [email or web address] Personal hygiene 06/24/2024 Setup or clean-up assist ance [email or web address] Roll left and right 06/24/2024 Setup or clean-up ass istance [email or web address] Shower/bathe self 06/24/2024 Not assessed [email or web address] Sit to lying 06/24/2024 Setup or clean-up assistance [email or web address] Sit to stand 06/24/2024 Setup or clean-up assistance [email or web address] Toilet transfer 06/24/2024 Setup or clean-up assista nce [email or web address] Toileting hygiene 06/24/2024 Setup or clean-up teresa tance [email or web address] Upper body dressing 06/24/2024 Setup or clean-up ass istance [email or web address] Wheel 150 feet 06/24/2024 Not assessed [email or web address] Wheel 50 feet with two turns 06/24/2024 Not assessed [email or web address] Immunizations Immunization Status Vaccine Details Vaccine Code CodeSystem Date Notes PPSV23 completed pneumococcal polysaccharide vaccine, 23 valent 33 CVX created date: 06/24/2024 administer ed date: 03/12/2017 Influenza-High Dose(Fluzone) completed created date: 06/24/2024 administer ed date: 01/28/2024 PVC20 cancelled Pneumococcal conjugate vaccine 20-valent (PCV20), polysaccharide ESH480 conjugate, adjuvant, preservative free 216 CVX created date: 06/24/2024 consent date: 06/24/2024 Educated by on 06/24/2024 Comirnaty Booster cancelled SARS-COV-2 (COVID-19) vaccine, mRNA, spike protein, LNP, preservative free, alejandro-sucrose, 30 mcg/0.3 mL dose 309 CVX created date: 06/24/2024 consent date: 06/24/2024 Educated by on 06/24/2024 Medications Section Medication Name Status Code CodeSystem Dose Route Frequency Admin Type Sig Text Start Date End Date Losartan Potassium Oral Tablet 25 MG active 412613 RXNORM 1 tablet Oral one time a day Routine Give 1 tablet by mouth one time a day for high blood pressu re 2024 - Omeprazole Oral Tablet Delayed Release 20 MG active 845844 RXNORM 1 tablet Oral one time a day Routine Give 1 tablet by mouth one time a day for gerd 2024 - Docusate Sodium Oral Tablet 100 MG active 339949 9 RXNORM 1 tablet Oral two times a day Routine Give 1 tablet by mouth two times a day for consti pation 2024 - Flonase Allergy Relief Nasal Suspension active 2 spray Nasal one time a day Routine 2 spray in both nostri ls one time a day for allerg ies 2024 - Acetaminophen Oral Tablet active 1000 mg Oral as needed PRN Give 1000 mg by mouth every 6 hours as needed for pain 2024 - oxyCODONE HCl Oral Tablet 5 MG active 945860 1 RXNORM 5 mg Oral as needed PRN Give 5 mg by mouth every 4 hours as needed for pain 2024 - Cholestyramin e Oral Packet 4 GM active 136488 RXNORM 4 gram Oral two times a day Routine Give 4 gram by mouth two times a day for high choles terol 2024 - Fleet Enema Enema 7-19 GM/118ML active 176343 RXNORM 1 dose Rectal as needed PRN Insert 1 dose rectal ly every 24 hours as needed for Consti pation (Step 3) as needed if no bowel moveme nt for 8 hours after bisaco dyl suppos itory. 2024 - Milk of Magnesia Suspension 400 MG/5ML active 695365 RXNORM 30 ml Oral as needed PRN Give 30 ml by mouth every 24 hours as needed for Consti pation (Step 1) As needed if no bowel moveme nt for three days. (Do not use for Hemodi alysis patien ts). 2024 - Acetaminophen Tablet 325 MG aborted 594518 RXNORM 2 tablet Oral as needed PRN Give 2 tablet by mouth every 6 hours as needed for Pain Pain Total dosage for acetam inophe n and medica tions that contai n acetam inophe n should not exceed 3 grams / 24 hours. AND Give 2 tablet by mouth every 6 hours as needed for Fever greate r than 100.0F Total dosage for acetam inophe n and medica tions that contai n acetam inophe n should not exceed 3 grams / 24 hours. 06/18 287736 RXNORM 2 tablet Oral as needed PRN Give 2 tablet by mouth every 6 hours as needed for Pain Pain Total dosage for acetam inophe n and medica tions that contai n acetam inophe n should not exceed 3 grams / 24 hours. AND Give 2 tablet by mouth every 6 hours as needed for Fever greate r than 100.0F Total dosage for acetam inophe n and medica tions that contai n acetam inophe n should not exceed 3 grams / 24 hours. 06/18 Bisacodyl Suppository 10 MG active 035372 RXNORM 1 suppos itory Rectal as needed PRN Insert 1 suppos itory rectal ly every 24 hours as needed for If no bowel moveme nt for 8 hours after Milk of Magnes ia 2024 - Celecoxib Oral Capsule 200 MG active 690073 RXNORM 1 capsul e Oral two times a day Routine Give 1 capsul e by mouth two times a day for pain 2024 - Enoxaparin Sodium Injection Prefilled Syringe Kit 40 MG/0.4ML aborted 40 mg Subcuta neous one time a day Routine Inject 40 mg subcut aneous ly one time a day for dvt preven tion 06/21 Enoxaparin Sodium Injection Prefilled Syringe Kit 40 MG/0.4ML active 40 mg Subcuta neous one time a day Routine Inject 40 mg subcut aneous ly one time a day for dvt preven tion for 6 Weeks 08/03 Problems Problem # Description Date of onset Resolved Date Code CodeSystem Concern Status 1 HODGKIN LYMPHOMA, UNSPECIFIED, IN REMISSION 06/19/[address] active 2 ENCOUNTER FOR OTHER ORTHOPEDIC AFTERCARE 06/18/[address] active 3 ESSENTIAL (PRIMARY) HYPERTENSION 06/18/[address] active 4 NONINFECTIVE GASTROENTERITIS AND COLITIS, UNSPECIFIED 06/18/[address] active 5 OBSTRUCTIVE SLEEP APNEA (ADULT) (PEDIATRIC) 06/18/[address] active 6 OTHER DISORDERS OF LUNG 06/18/[address] active 7 OTHER SEASONAL ALLERGIC RHINITIS 06/18/[address] active 8 PRESENCE OF LEFT ARTIFICIAL KNEE JOINT 06/18/[address] active 9 UNSPECIFIED OPEN WOUND, LEFT KNEE, SUBSEQUENT ENCOUNTER 06/18/[address] active Reason for Referral No Reasons for Referral Entered Social History Social History Observation Description Start Date End Date Code Code System Current Smoking Status Tobacco smoking consumption unknown 130643157 SNOMED CT Sex Assigned At Female 1965 82058-0 [facility] Vital Signs Code Code System Vitals Name Values and Units Timing Information 68181-4 LOINC Pain Level Value=0.0 06/24/2024 70370-1 LOINC Weight Utxla=879.7 Units=Lbs 01/2025 9279-1 LOINC Respiratory Rate Value=16.0 Units=/m in 06/21/2024 8462-4 LOINC Blood Pressure-Diastolic Value=89 Un its=mmHg 06/21/2024 8480-6 LOINC Blood Pressure-Systolic Brann=947 Un its=mmHg 06/21/2024 8310-5 LOINC Body Temperature Value=97.4 Units=?? F 06/21/2024 8867-4 LOINC Heart rate Value=84.0 Units=/min 12/2024 42113-0 LOINC O2 % BldC Oximetry Value=97.0 Units= % 06/21/2024 8302-2 LOINC Height Value=60.0 Units=Inches 06/18/2024
--- OUTSIDE RECORDS SUMMARY | 2024-06-26 07:48 | XMS_ITS | Clinical Summary ---
Author Organization [employer] Address [address] [facility] [address] [place] [address] Care Team Providers Care Balcony Worker Name Role Phone Unavailable Primary Care Provider Unavailabl e Allergies No known active allergies Medications hydroCHLOROthia zide (HYDRODiuril) 25 MG tablet TOME 1 TABLETA POR V A ORAL TODOS LOS D 5 Active hydrOXYzine HCl (Atarax) 25 MG tablet TAKE 1 TABLET BY MOUTH EVERY NIGHT AT BEDTIME NEEDED PARA ANSIEDAD/PARA DORMIR Active losartan (Cozaar) 25 MG tablet TOME 1 TABLETA POR V A ORAL TODOS LOS D 5 Active omeprazole (PriLOSEC) [address] capsule Take 1 capsule by mouth Once per day. 2 Active fluticasone (Flonase) 50 MCG/ACT nasal spray ROCIAR 2 VECES EN CADA VENTANILLA DE LA NARIZ A DIARIO FOR ALLERGIC RHINITIS FOR 30 DAYS 5 Active Bisacodyl EC 5 MG EC tablet TOME DOS TABLETAS POR V A ORAL TODOS LOS D AL ACOSTARSE FOR 2 DAYS 4 Active amoxicillin (Amoxil) 500 MG capsule Take 1 capsule (500 mg) by mouth every 8 (eight) hours for 7 days. 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 Backache 09/24/2011 Depressive disorder 09/24/2011 Obesity 09/24/2011 Vaginitis and vulvovaginitis 09/24/2011 Urinary tract infectious disease 09/24/2011 Encounters Date Type Department Care Team Description 06/12/2024 11:30 AM EST Office Visit [facility] [address] [place] [address] Ismael Trevino DDS 06/12/2024 Telephone [facility] [address] [place] [address] Sarahy Edwards DDS unable to post portal PAR from Last 3 Months Immunizations Name Administration Dates Next Due Pfizer [...] 10 :14 AM EDT Plan of Treatment Upcoming Encounters Date Type Department Care Team (Late st Contact Info) Description 07/24/2024 9:00 AM EDT Office Visit [facility] [address] [place] [address] Ismael Trevino DDS [address] [place] [address] Health Maintenance Due Date Last Done Comments CT Colonography 1965 Colonoscopy 1965 Colorectal Cancer Screening 1965 Depression Screening 1965 FIT DNA/Cologuard 1965 FIT 1965 FOBT 1965 HIV Screening 1965 Lipid Panel 1965 SDOH Screening 1965 Sigmoidoscopy 1965 Alcohol/Substance Use Screening 1975 Hepatitis C Screening 11/04/1981 Pap Smear 11/04/1984 Cervical Cancer Screening 11/04/1993 HPV/Cotest 11/04/1993 Mammogram 2003 Pneumococcal Vaccine: 50+ Years (2 of 2 - PCV) 03/12/2018 03/12/2017, 07/13/2016 Dental Oral Exam 01/24/2022 07/24/2021, , 04/04/2016, Additional history exists Dental Prophylaxis 01/24/2022 07/24/2021, 0 01/10/2017, 11/30/2015, Additional history exists Zoster Vaccines (2 of 2) 03/27/2022 01/30/2022 COVID-19 Vaccine ( season) 2023 01/21/2023, 04/23/2022, 10/05/2021, Additional history exists Dental X-Ray: Full Mouth 07/25/2024 07/24/2021, 06/13 Tobacco Screening 06/12/2025 06/12/2024 Dental X-Ray: Bitewings 06/13/2025 06/12/19 25, 07/24/2021, 04/04/2016, Additional history exists DTaP/Tdap/Td Vaccines (2 - Td or Tdap) 01/19/2026 01/20/2016, 09/05/2012, 10/21/2009, Additional history exists RSV Patients and Patients Aged 60 years or older (1 - 1-dose 75+ series) 11/04/2038 Hepatitis B Vaccines Completed 01/23/2011, 03/08/2008, 02/05/2000 Influenza Vaccine Completed 01/28/2024, , 01/17/2023, Additional history exists HIB Vaccines Aged Out No longer eligi [...] on patient's age to complete this topic Procedures Procedure Name Priority Date/Time Associated Diagnosis Comments CASE PRESENTATION, DETAILED AND EXTENSIVE TREATMENT PLANNING Routine 06/12/2024 11:30 AM EST BITEWING - SINGLE RADIOGRAPHIC IMAGE Routine 06/12/2024 11:30 AM EST INTRAORAL - PERIAPICAL FIRST RADIOGRAPHIC IMAGE Routine 06/12/2024 11:30 AM EST PALLIATIVE (EMERGENCY) TREATMENT OF DENTAL PAIN - MINOR PROCEDURE Routine 06/12/2024 11:30 AM EST PROPHYLAXIS - ADULT Routine 07/24/2021 1 2:00 AM EDT INTRAORAL - COMPLETE SERIES OF RADIOGRAPHIC IMAGES Routine 07/24/2021 12:00 AM EDT PERIODIC ORAL EVALUATION - ESTABLISHED PATIENT Routine 07/24/2021 12:00 AM EDT from Last 3 Months or Most Recently Relevant to Health Maintenance [facility] STAND ADULT
== END 2024-06-26 07:46 | disposition home or self-care (01) ==
LOC: HO.MAMMO 07:45
PROVIDERS: PCP Internal Medicine; Visit Provider Internal Medicine
DX: Z12.31 Encounter for screening mammogram for malignant neoplasm of breast (principal)
CPT/HCPCS: 77063; 77067

== ENCOUNTER → 2024-06-26 08:30 | Outpatient (BNV) | payer OTHER, SELFPAY | PROVIDERS: PCP Internal Medicine; Visit Provider Internal Medicine | DX: Z12.31 Encounter for screening mammogram for malignant neoplasm of breast (principal) | CPT/HCPCS: 77063; 77067 ==

== ENCOUNTER 2024-08-14 10:14 | Outpatient (REF) | payer OTHER, SELFPAY ==
--- OUTSIDE RECORDS SUMMARY | 2024-08-14 12:49 | XMS_ITS | Encounter Summary ---
Author Organization [employer] Address [address] [facility] [address] [place] [address] Care Team Providers Care Poultry Feed Supervisor Name Role Phone Unavailable Primary Care Provider Unavailabl e Reason for Visit * Reason Onset Date Comments unable to post portal PAR 06/12/2024 Encounter Details Date Type Department Care Team (Late st Contact Info) Description 06/12/2024 Telephone [facility] [address] [place] [address] Sarahy Edwards DDS [address] [place] [address] unable to post portal PAR Social History [...] Care Team (Late st Contact Info) Description 02/26/2025 8:00 AM EST Office Visit [facility] [address] [place] [address] Shikha Santos [address] [place] [address] documented as of this encounter Visit Diagnoses Not on filedocumented in this encounter
--- OUTSIDE RECORDS SUMMARY | 2024-08-14 12:49 | XMS_ITS | Encounter Summary ---
Author Organization [employer] Address [address] [place] [address] [address] [address] Care Team Providers Care Ham Sawyer Name Role Phone Unavailable Primary Care Provider Unavailabl e Reason for Visit * Reason Comments Extraction Encounter Details Date Type Department Care Team ([facility] st Contact Info) Description 08/11/2024 1:30 PM EDT Office Visit [facility] [address] [place] [address] Ismael Trevino DDS [address] [place] [address] Social History Tobacco Use Types Packs/Day Years [...] AM EDT documented as of this encounter Last Filed Vital Signs Vital Sign Reading Time Taken Comments Blood Pressure 140/80 08/11/2024 1:19 PM EDT Pulse 60 08/11/2024 1:19 PM EDT Temperature - - Respiratory Rate - - Oxygen Saturation - - Inhaled Oxygen Concentration - - Weight - - Height - - Body Mass Index - - documented in this encounter Progress Notes * Ismael Trevino DDS - 08/11/2024 1:30 PM EDT Patient ID: Yulissa Zimmerman is a 58 y.o. female. Time Out: Timeout Date: 08/11/24, Timeout Time: 1322 (pt is here for ext) Location: [facility] Tooth: #16 Procedure: Extraction Verified the above with patient, media assistant, and provider. Confirmed via patient's chart, intraorally and by radiographs. New Accounts Clerk: not applicable Chief Complaint Patient presents with Extraction Medical Hx: Vitals: Blood pressure (!) 140/80, pulse 60. Past Medical History: Diagnosis Date Anxiety Depression Hypertension Medications: Outpatient Encounter Medications as of 08/11/2024 Medication Sig Dispense Refill acetaminophen (Tylenol) 500 MG tablet Take 1 tablet (500 mg) by mouth every 8 (eight) hours if needed for mild pain for up to 7 days. 21 tablet 0 amoxicillin (Amoxil) 500 MG capsule Take 1 capsule (500 mg) by mouth every 8 (eight) hours for 7 days. 21 capsule 0 Bisacodyl EC 5 MG EC tablet TOME DOS TABLETAS POR V A ORAL TODOS LOS D AL ACOSTARSE FOR 2 DAYS fluticasone (Flonase) 50 MCG/ACT nasal spray ROCIAR 2 VECES EN CADA VENTANILLA DE LA NARIZ A DIARIOFOR ALLERGIC RHINITIS FOR 30 DAYS hydroCHLOROthiazide (HYDRODiuril) 25 MG tablet TOME 1 TABLETA POR V A ORAL TODOS LOS D hydrOXYzine HCl (Atarax) 25 MG tablet TAKE 1 TABLET BY MOUTH EVERY NIGHT AT BEDTIME NEEDED PARA ANSIEDAD/PARA DORMIR losartan (Cozaar) 25 MG tablet TOME 1 TABLETA POR V A ORAL TODOS LOS D omeprazole (PriLOSEC) [address] capsule Take 1 capsule by mouth Once per day. No facility-administered encounter medications on file as of 08/11/2024. Consent Obtained: The risks, benefits, indications, potential complications, and alternatives were explained to the patient and informed consent was obtained with good understanding. Treatment Provided: Dental procedures in this visit D7140 - EXTRACTION, ERUPTED TOOTH OR EXPOSED ROOT (ELEVATION/FORCEPS REMOVAL) 16 (Completed) Service provider: Ismael Trevino DDS Billing provider: Ismael Trevino DDS D0330 - PANORAMIC RADIOGRAPHIC IMAGE (Completed) Service provider: Ismael Trevino DDS Billing provider: Ismael Trevino DDS D9450 - CASE PRESENTATION, DETAILED AND EXTENSIVE TREATMENT PLANNING (Completed) Service provider: Ismael Trevino DDS Billing provider: Ismael Trevino DDS Diagnosis: Periodontitis Topical: 20% Benzocaine Anesthesia: 4% Septocaine (Articaine) w/ 1:200,000 epinephrine Number of Cartridges: 1 Injection Type: Buccal infiltration and Palatal infiltration Confirmed profound anesthesia. Pharyngeal curtain and bite block placed. Removed tooth with elevators and forceps. Apices intact. Surgical Extraction: N/A Socket curetted & irrigated with sterile water. Compressed alveolar bone. Sutures: None Needed All adjacent teeth intact. Hemostasis achieved. Complications: None Written and verbal post-op instructions given. Patient discharged in stable condition; ambulatory, alert, and oriented. NV: Home Advisor: Lesia Mantilla Dentist: Ismael Trevino DDS documented in this encounter Plan of Treatment Upcoming Encounters Date Type Department Care Team (Late st Contact Info) Description 02/26/2025 8:00 AM EST Office Visit [facility] [address] [place] [address] Tom Shikha [address] [place] [address] documented as of this encounter Procedures Procedure Name Priority Date/Time Associated Diagnosis Comments PANORAMIC RADIOGRAPHIC IMAGE Routine 08/11/2024 1:30 PM EDT 16 EXTRACTION, ERUPTED TOOTH OR EXPOSED ROOT (ELEVATION/FORCEPS REMOVAL) Routine 08/11/2024 1:30 PM EDT CASE PRESENTATION, DETAILED AND EXTENSIVE TREATMENT PLANNING Routine 08/11/2024 1:30 PM EDT documented in this encounter Visit Diagnoses Not on filedocumented in this encounter
--- OUTSIDE RECORDS SUMMARY | 2024-08-14 12:49 | XMS_ITS | Clinical Summary ---
Author Organization [employer] Address [address] [facility] [address] [place] [address] Care Team Providers Care Historic Sites Registrar Name Role Phone Unavailable Primary Care Provider [...] hours for 7 days. 21 capsule 5 08/19/19 25 Active acetaminophen (Tylenol) 500 MG tablet Take 1 tablet (500 mg) by mouth every 8 (eight) hours if needed for mild pain for up to 7 days. 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 Backache 09/24/2011 Depressive disorder 09/24/2011 Obesity 09/24/2011 Vaginitis and vulvovaginitis 09/24/2011 Urinary tract infectious disease 09/24/2011 Encounters Date Type Department Care Team Description 08/11/2024 1:30 PM EDT Office Visit [facility] [address] [place] [address] Ismael Trevino DDS 07/24/2024 Telephone [facility] [address] [place] [address] Shikha Santos 07/24/2024 Telephone [facility] [address] [place] [address] Ismael Trevino, SARAH 06/12/2024 11:30 AM EST Office Visit [facility] [address] [place] [address] Ismael Trevino DDS 06/12/2024 Telephone [facility] [address] [place] [address] Sarahy Edwards DDS unable to post portal [...] Orientation Straight 02/12/2022 10 :14 AM EDT Last Filed Vital Signs Vital Sign Reading Time Taken Comments Blood Pressure 140/80 08/11/2024 1:19 PM EDT Pulse 60 08/11/2024 1:19 PM EDT Temperature - - Respiratory Rate - - Oxygen Saturation - - Inhaled Oxygen Concentration - - Weight - - Height - - Body Mass Index - - Plan of Treatment Upcoming Encounters Date Type Department Care Team (Late st Contact Info) Description 02/26/2025 8:00 AM EST Office Visit [facility] [address] [place] [address] Shikha Santos [address] [place] [address] Health Maintenance Due Date Last Done Comments CT Colonography 1963 Colonoscopy 1963 Colorectal Cancer Screening 1963 Depression Screening 1963 FIT DNA/Cologuard 1963 FIT 1963 FOBT 1963 HIV Screening 1963 Lipid Panel 1963 SDOH Screening 1963 Sigmoidoscopy 1963 Alcohol/Substance Use Screening 1975 Hepatitis C Screening 11/04/1981 Pap Smear 11/04/1984 Cervical Cancer Screening 11/04/1993 HPV/Cotest 11/04/1993 Mammogram 2003 Pneumococcal Vaccine: 50+ Years (3 of 3 - PCV) 03/12/2018 03/12/2017, 07/13/2016 Dental Oral Exam 01/24/2022 07/24/2021, , 04/04/2016, Additional history exists Dental Prophylaxis 01/24/2022 07/24/2021, 0 01/10/2017, 11/30/2015, Additional history exists Zoster Vaccines (2 of 2) 03/27/2022 01/30/2022 RSV Patients and Patients Aged 60 years or older (1 - Risk 60-74 years 1-dose series) 2023 COVID-19 Vaccine ( season) 2023 01/21/2023, 04/23/2022, 10/05/2021, Additional history exists Dental X-Ray: Bitewings 06/13/2025 06/12/19, 07/24/2021, 04/04/2016, Additional history exists Tobacco Screening 08/11/2025 08/11/2024 DTaP/Tdap/Td Vaccines (2 - Td or Tdap) 01/19/2026 01/20/2016, 09/05/2012, 10/21/2009, Additional history exists Dental X-Ray: Full Mouth 08/13/2027 025, 07/24/2021, 06/22/2013 Hepatitis B Vaccines Completed 01/23/2011, 03/08/2008, 02/05/2000 [...] TREATMENT PLANNING Routine 08/11/2024 1:30 PM EDT PANORAMIC RADIOGRAPHIC IMAGE Routine 08/11/2024 1:30 PM [...] ADULT Routine 07/24/2021 1 2:00 AM EDT PERIODIC ORAL EVALUATION - ESTABLISHED PATIENT Routine 07/24/2021 12:00 AM EDT from Last 3 Months or Most Recently Relevant to Health Maintenance Insurance [facility] MEDICAID STAND ADULT
--- OUTSIDE RECORDS SUMMARY | 2024-08-14 12:49 | XMS_ITS | Encounter Summary ---
Author Organization [employer] Address [address] [facility] [address] [place] [address] Care Team Providers Care Hide House Supervisor Name Role Phone Unavailable Primary Care Provider Unavailabl e Encounter Details Date Type Department Care Team (Latest Contact Info) Description 07/24/2021 Abstract [facility] CONVERSIONS Dental, Provider, DDS Social History [...] Description 02/26/2025 8:00 AM EST Office Visit [facility] ADULT DENT[facility] [address] [place] [address] Ricky Santosaris [address] [place] [address] documented as of this encounter Visit Diagnoses Not on filedocumented in this encounter
== END 2024-08-14 10:15 | disposition home or self-care (01) ==
LOC: HO.LAB 10:14
PROVIDERS: PCP Internal Medicine; Visit Provider Nurse Practitioner Family
DX: R10.13 Epigastric pain (principal); K21.9 Gastro-esophageal reflux disease without esophagitis; Z12.11 Encounter for screening for malignant neoplasm of colon
CPT/HCPCS: 99212

== ENCOUNTER 2024-08-14 10:14 | Outpatient (AMB) | payer OTHER, SELFPAY ==
--- NOTE | 2024-08-14 10:19 | MHC.OFFVIS ---
Vital Signs 08/14/24 10:20 Height 5 ft 1 in Weight 184 lb BMI 34.8 BP 132/67 Blood Pressure Location Lt brachial Position Sitting Pulse 92 Pulse Oximetry (%) 97 Oxygen Delivery Method Room Air Intake Visit Reasons: pre colonoscopy/Myranda pt lov02/05/2023 Intake Note: Patient complex follow up for pre colonoscopy/Myranda kathy 02/05/2023 for chronic constipation. Patient last colonoscopy was cancel same date of procedure and no one called her to s/c colonoscopy again. Patient cc: Acid reflux with burning sensation, abdominal pain with BM, denies any other GI issues. Television Maintenance Man Required: Yes Television Maintenance Man Name: [facility] Interpeter Accompanied by: Self / Same As Patient Allergies Seasonal Allergies Allergy (Intermediate, Verified 08/14/24 10:19) runny nose, sore throat Medication List - Last Reconciled 08/14/24 by Yudi Jimenez CNP blood pressure monitor As directed cane As directed docusate sodium 200 mg (2 x 100 mg) PO BEDTIME hydrochlorothiazide 25 mg PO DAILY 90 days hydroxyzine HCl 25 mg PO BID PRN sertraline 150 mg PO QAM HPI HPI pre colonoscopy/Myranda pt [facility]02/05/2023: Details: Patient is a 58-year-old female with PMH of depression, migraines, hyperlipidemia and hypertension. Last visit with SUHA Denis 02/05/2023 for pre colonscopy screening. Pt is here today for pre colonscopy screening. The previously scheduled procedure was cancelled due to provider illness, and 10 year repeat screening remains pending She reports pyrosis onset two weeks ago. Also experiences regurgitation and upper epigastric pain. States symptoms are relieve after taking her 's prescribed omeprazole. She also had relief from OTC nexium. She was started on antibiotic Saturday following molar removal. She reports daily BM occuring 1-2x/day described as soft and normal. She denies constipation or diarrhea. Endorses hemorrhoids but states they well managed with OTC cream and wipes. Associated symptoms: nausea Aggravating factors: certain foods Alleviating attempts:hot water + as above Patient denies: fever/chills, vomiting, appetite changes,dysphasia, unintentional wt loss or melena/hematochezia. Social hx: denies ETOH use denies recreational drug use non-smoker -family hx as below -denies personal hx of CA -denies any other significant cardiopulmonary history -tolerated anesthesia in the past without difficulty. [facility] Medical History (Updated 08/14/24 @ 12:37 by Yudi Jimenez CNP) Acid reflux Epigastric abdominal pain Breast calcification, right Physical exam Mild recurrent major depression Right knee pain Essential hypertension ASCUS of cervix with negative high risk HPV Depression Migraines Hypovitaminosis D Pure hypercholesterolemia Surgical History History of endometrial ablation History of breast biopsy History of tubal ligation Family History Father Hypertension CVD (cardiovascular disease) Diabetes Mother Hypertension Diabetes Hypercholesteremia Sister Lung cancer Family/Other FH: mental illness Social History Household Members: Spouse Housing: Apartment Alcohol intake: never Patient Tobacco Use Status: Never used Tobacco e-Cigarette/Vaping Use: Never Used Second Hand Smoke Exposure: No service: No Current occupational status: unemployed 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 Sexual orientation: Straight/Heterosexual Gender identity: Female Cognitive needs: No Hearing needs: No Vision needs: Yes Female Reproductive History Menstrual Age of Menarche: 9 Review of Systems Const Reports as per HPI ENT Reports as per HPI Card Reports as per HPI Resp Reports as per HPI GI Reports as per HPI Reports as per HPI Physical Exam Vital Signs: Oxygen Delivery Method Room Air 08/14/24 10:20 BMI result Body Mass Index 34.8 Const General: healthy appearing, no acute distress and well developed Nutritional Appearance: well nourished Orientation/consciousness: patient oriented x3 HEENT Head: Yes normal to inspection, Yes normocephalic and Yes atraumatic Face and sinus: Yes normal facial exam Eyes General: appearance normal, both eyes and all related structures Neck Neck: Yes normal visual inspection Resp Effort & Inspection: normal respiratory effort, able to speak in complete sentences, no tracheal deviation and symmetric chest movement Auscultation: clear to auscultation bilaterally Cardio Jugular venous distension: no JVD Rate: regular rate Rhythm: regular rhythm Heart sounds: S1 normal heart sound present, S2 normal heart sound present, no gallops and no murmurs GI Inspection: Yes normal to inspection, No distended and Yes obesity Palpation (GI): Soft to palpation, not firm, nontender and No hepatosplenomegaly present Auscultation: normal bowel sounds Neuro General: patient oriented x3 Gait exam (Neuro): Normal gait present Psych Appearance: grossly normal Mental Status: mental status grossly normal Speech and movement: Normal speech and movement present Affect: normal affect Attitude: cooperative Thought process: Normal thought process present Thought content: Normal thought content present Insight: Good insight present (Psych) Judgement: Good judgement present (Psych) Assessment & Plan Assessment & Plan (1) Epigastric abdominal pain: Code(s): R10.13 - Epigastric pain Category: Medical Plan: Likely secondary to GERD. However, some suspicion for H. plyori given sudden onset. We discussed stool testing during visit but did not account for current antibiotic treatment. Bisopy can be obtained at time of Endoscopy. 1620 ( labor mediator Shelbi [phone]): attempt Yulissa to discuss change in treatment plan. no answer, message left requesting a call back to review. (2) Acid reflux: Code(s): K21.9 - Gastro-esophageal reflux disease without esophagitis Category: Medical Qualifiers: Esophagitis presence: esophagitis presence not specified Qualified Code(s): K21.9 - Gastro-esophageal reflux disease without esophagitis Plan: Lab testing as above. We will send a prescription for omeprazole 20 mg daily. Discussed completion of endoscopy at time of colonoscopy, she is agreeable. (3) Encounter for screening colonoscopy: Comment: 2013 Colonoscopy-normal colon Code(s): Z12.11 - Encounter for screening for malignant neoplasm of colon Category: Medical Plan: Last colonoscopy [address] Euceda with normal findings. She is due for her 10 year repeat screening. Reviewed prep and procedure expectations. Prep Rx'd to preferred pharmacy. Plan Follow-up after EGD/colonoscopy are sooner as needed Time: I spent a total of 60 minutes on the date of encounter which includes: Preparing to see the patient (reviewed previous documentation, test results and medical history) Performing a medically appropriate exam and/or evaluation Ordering medications, tests, and procedures Documenting clinical information in the health record Orders: Orders H pylori Ag Stool Today R10.13 - Epigastric pain Medications: New omeprazole take one tablet daily. To start after stool testing. 20 mg PO DAILY 90 caps 1RF polyethylene glycol 3350 (Miralax) per colonoscopy prep instructions 238 grams PO ONCE 238 grams 0RF bisacodyl per colonoscopy instructions 5 mg PO ONCE 1 day 4 tabs 0RF sucralfate (Carafate) Take 1 tablet two times a day as needed 1 g PO BID 90 tabs 0RF Coding Level of Care Code Established Pt Est Pt Level 5 (19576) Patient Type Established Diagnoses Epigastric abdominal pain R10.13 Gastroesophageal reflux disease, unspecified whether esophagitis present K21.9 Esophagitis presence: esophagitis presence not specified Encounter for screening colonoscopy Z12.11
[2024-08-14 10:20] VITALS: BP 132/67; PULSE 92; O2SAT 97; BMI 34.8
== END 2024-08-14 11:51 | disposition home or self-care (01) ==
LOC: HO.HGI 10:15
PROVIDERS: PCP Internal Medicine; Visit Provider Nurse Practitioner Family
DX: R10.13 Epigastric pain (principal); K21.9 Gastro-esophageal reflux disease without esophagitis; Z12.11 Encounter for screening for malignant neoplasm of colon
CPT/HCPCS: 99214

== ENCOUNTER 2024-08-15 | Outpatient (REF) | payer OTHER, SELFPAY ==
--- OUTSIDE RECORDS SUMMARY | 2024-08-17 08:47 | XMS_ITS | Clinical Summary ---
Author Organization [employer] Address [address] [facility] [address] [place] [address] Care Team Providers Care Paranormal Investigator Name Role Phone Unavailable Primary Care Provider [...] Description 08/11/2024 1:30 PM EDT Office Visit [facility] D[facility] [address] [place] [address] Ismael Trevino DDS 07/24/2024 Telephone [facility] AD[facility] D[facility] [address] [place] [address] Shikha Santos 07/24/2024 Telephone [facility] AD[facility] D[facility] [address] [place] [address] Ismael Trevino, SARAH 06/12/2024 11:30 AM EST Office Visit [facility] ADULT D[facility] [address] [place] [address] Ismael Trevino DDS 06/12/2024 Telephone [facility] ADULT D[facility] [address] [place] [address] Sarahy Edwards DDS unable to post portal [...] Description 02/26/2025 8:00 AM EST Office Visit [facility] ADULT D[facility] [address] [place] [address] Shikha Santos [address] [place] [address] Health Maintenance Due Date Last Done Comments [...] Most Recently Relevant to Health Maintenance Insurance [facility] MEDICAID STAND ADULT
--- OUTSIDE RECORDS SUMMARY | 2024-08-17 08:47 | XMS_ITS | Encounter Summary ---
Author Organization [employer] Address [address] [facility] [address] [place] [address] Care Team Providers Care Slurry Control Tender Name Role Phone Unavailable Primary Care Provider Unavailabl e Reason for Visit * Reason Onset Date Comments unable to post portal PAR 06/12/2024 Encounter Details Date Type Department Care Team (Late st Contact Info) Description 06/12/2024 Telephone [facility] ADULT D[facility] [address] [place] [address] Sarahy Edwards DDS [address] [place] [address] unable to post portal PAR Social History [...] Description 02/26/2025 8:00 AM EST Office Visit [facility] ADULT [facility] [address] [place] [address] Shikha Santos [address] [place] [address] documented as of this encounter Visit Diagnoses Not on filedocumented in this encounter
--- OUTSIDE RECORDS SUMMARY | 2024-08-17 08:47 | XMS_ITS | Encounter Summary ---
Author Organization [employer] Address [address] [facility] [address] [place] [address] Care Team Providers Care Family Life Educator Name Role Phone Unavailable Primary Care Provider Unavailabl e Encounter Details Date Type Department Care Team (Latest Contact Info) Description 07/24/[address] [facility] CONVERSIONS Dental, Provider, DDS Social History [...] Description 02/26/2025 8:00 AM EST Office Visit [facility] ADULT DENT[facility] [address] [place] [address] Ricky Santosaris [address] [place] [address] documented as of this encounter Visit Diagnoses Not on filedocumented in this encounter
== END 2024-08-15 00:01 | disposition home or self-care (01) ==
LOC: HO.LNP
PROVIDERS: Visit Provider Nurse Practitioner Family
DX: R10.13 Epigastric pain (principal)
CPT/HCPCS: 87338

== ENCOUNTER 2024-10-19 08:14 | Outpatient (AMB) | payer OTHER, SELFPAY ==
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
[2024-10-19 08:34] VITALS: BP 138/82; BMI 35.3
== END 2024-10-19 09:09 | disposition home or self-care (01) ==
LOC: HO.HMCH 08:15
PROVIDERS: PCP Internal Medicine; Visit Provider Internal Medicine
DX: Z00.00 Encounter for general adult medical examination without abnormal findings (principal); F33.0 Major depressive disorder, recurrent, mild

== ENCOUNTER → 2024-10-19 08:14 | Outpatient (BNVA) | payer OTHER, SELFPAY | PROVIDERS: PCP Internal Medicine; Visit Provider Internal Medicine | DX: Z00.00 Encounter for general adult medical examination without abnormal findings (principal); F33.0 Major depressive disorder, recurrent, mild; I10 Essential (primary) hypertension; K21.9 Gastro-esophageal reflux disease without esophagitis; E78.5 Hyperlipidemia, unspecified | CPT/HCPCS: 96127; 99396 ==

== ENCOUNTER 2024-10-23 07:57 | Outpatient (REF) | payer OTHER, SELFPAY ==
--- OUTSIDE RECORDS SUMMARY | 2024-10-23 07:59 | XMS_ITS | Encounter Summary ---
Author Organization Agency [employer] Address [address] [facility] 7t [place] [address] Care Team Providers Care Cadworx Piping Designer Name Role Phone Unavailable Primary Care Provider Unavailabl e Encounter Details Date Type Department Care Team (Latest Contact Info) Description 07/24/2021 Abstract [facility] CONVERSIONS Dental, Provider, DDS Social History Tobacco [...] Description 02/26/2025 8:00 AM EST Office Visit [facility] ADULT DENTAL [address] [place] [address] Ricky Santosaris [address] [place] [address] documented as of this encounter Visit Diagnoses Not on filedocumented in this encounter
[2024-10-23 09:06] LABS: Alanine Aminotransferase 25 U/L (0-31); Albumin Level 4.1 g/dL (3.5-5.0); Alkaline Phosphatase 94 U/L (39-117); Anion Gap 11 (12-20); Aspartate Amino Transferase 17 U/L (5-31); Blood Urea Nitrogen 14 mg/dL (9-16); Calcium 9.6 mg/dL (8.4-10.2); Carbon Dioxide 26 mmol/L (22-29); Chloride 107 mmol/L (96-108); Cholesterol 219 mg/dL (<200); Estimated Glomerular Filt Rate > 60; HDL Cholesterol 50 mg/dL (>40); Potassium 4.0 mmol/L (3.3-5.1); Sodium 140 mmol/L (135-145); Total Protein 7.6 g/dL (6.5-8.0); Triglycerides 76 mg/dL (<150)
== END 2024-10-23 07:58 | disposition home or self-care (01) ==
LOC: HO.LAB 07:57
PROVIDERS: PCP Internal Medicine; Visit Provider Internal Medicine
DX: K21.9 Gastro-esophageal reflux disease without esophagitis (principal); E78.5 Hyperlipidemia, unspecified
CPT/HCPCS: 36415; 80053; 80061

== ENCOUNTER 2024-12-15 14:12 | Outpatient (REF) | payer OTHER, SELFPAY ==
[2024-12-15 14:48] LABS: Appearance Urine Cloudy; Glucose Urine UA Negative (Negative); PH 6.5 (5.0-9.0); Specific Gravity - Urine 1.025 (1.005-1.025)
--- OUTSIDE RECORDS SUMMARY | 2024-12-15 15:27 | XMS_ITS | Clinical Summary ---
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 Backache 09/24/2011 Depressive disorder 09/24/2011 Obesity 09/24/2011 Vaginitis and vulvovaginitis 09/24/2011 Urinary tract infectious disease 09/24/2011 Immunizations Immunization Administration Dates Next Due [employer] Covid-19 Vaccine 12+ Bivalent 04/23/2022 Social History [...] Office Visit [facility] ADULT DENTAL [address] [place] [address] Tom, Shikha [address] [place] [address] Health Maintenance Due Date Last Done Comments CT Colonography 1963 Colonoscopy 1963 Colorectal Cancer Screening 1963 Depression Screening 1963 FIT DNA/Cologuard 1963 FIT 1963 FOBT 1963 HIV Screening 1963 Lipid Panel 1963 SDOH Screening 1963 Sigmoidoscopy 1963 Disability Screening 1963 Alcohol/Substance Use Screening 1975 Hepatitis C [...] 2023 01/21/2023, 04/23/2022, 10/05/2021, Additional history exists Influenza Vaccine (#1) 2024 , 01/16/2024, 01/17/2023, Additional history exists Dental X-Ray: Bitewings 06/13/2025 06/12/19 25, 07/24/2021, 04/04/2016, Additional history exists Tobacco Screening 08/11/2025 08/11/2024 DTaP/Tdap/Td Vaccines (2 - Td or Tdap) 01/19/2026 01/20/2016, 09/05/2012, 10/21/2009, Additional history exists Dental X-Ray: Full Mouth 08/13/2027 025, 07/24/2021, 06/22/2013 Hepatitis B Vaccines Completed 01/23/2011, 03/08/2008, 02/05/2000 HIB Vaccines Aged Out No longer eligi [...] patient's age to complete this topic Meningococcal B Vaccine Aged Out No l onger eligible based on patient's age to complete [...] RADIOGRAPHIC IMAGE Routine 08/11/2024 1:30 PM EDT BITEWING - SINGLE RADIOGRAPHIC IMAGE Routine 06/12/2024 11:30 AM EST PROPHYLAXIS - ADULT Routine 07/24/2021 1 2:00 AM EDT PERIODIC ORAL EVALUATION - ESTABLISHED PATIENT Routine 07/24/2021 12:00 AM EDT from Last 3 Months or Most Recently Relevant to Health Maintenance Insurance [facility]CO DENTAL-[facility] MEDICAID STAND ADULT
--- OUTSIDE RECORDS SUMMARY | 2024-12-15 15:27 | XMS_ITS | Encounter Summary ---
Author Organization [employer] Address [address] [facility] [address] [place] [address] Care Team Providers Care White Lead Filterer Name Role Phone Unavailable Primary Care Provider Unavailabl e Reason for Visit * Reason Onset Date Comments unable to post portal PAR 06/12/2024 Encounter Details Date Type Department Care Team (Late st Contact Info) Description 06/12/2024 Telephone [facility] ADULT DENTAL [address] [place] [address] Sarahy Edwards DDS [address] [place] [address] unable to post portal PAR Social History [...] Description 02/26/2025 8:00 AM EST Office Visit [facility] ADULT DENTAL [address] [place] [address] Shikha Santos [address] [place] [address] documented as of this encounter Visit Diagnoses Not on filedocumented in this encounter
--- OUTSIDE RECORDS SUMMARY | 2024-12-15 15:27 | XMS_ITS | Encounter Summary ---
Author Organization [employer] Address [address] [facility] [address] [place] [address] Care Team Providers Care Repair Order Clerk Name Role Phone Unavailable Primary Care Provider Unavailabl e Encounter Details Date Type Department Care Team (Latest Contact Info) Description 07/24/2021 Abstract [facility] CONVERSIONS Dental, Provider, DDS Social History [...] Description 02/26/2025 8:00 AM EST Office Visit [facility] ADULT DENTAL [address] [place] [address] Ricky Santosaris [address] [place] [address] documented as of this encounter Visit Diagnoses Not on filedocumented in this encounter
== END 2024-12-15 14:13 | disposition home or self-care (01) ==
LOC: HO.LAB 14:12
PROVIDERS: PCP Internal Medicine; Visit Provider Internal Medicine
DX: R39.9 Unspecified symptoms and signs involving the genitourinary system (principal)
CPT/HCPCS: 81003

== ENCOUNTER 2024-12-26 10:11 | Emergency (ER) | payer OTHER, SELFPAY ==
--- NOTE | ~2024-12-26 | XR_ITS ---
CLINICAL HISTORY: sob 1 view chest x-ray. Comparison: None Findings: The lungs are adequately expanded. Minimal interstitial prominence. No focal consolidation. No effusion or pneumothorax. Cardiac and mediastinal contours are within normal limits. No acute osseous abnormality Impression: Minimal interstitial prominence. No focal consolidation. This document has been electronically signed by: Jamel Naranjo MD on 12/26/2024 10:57:43
[2024-12-26 10:22] VITALS: BP 195/93; PULSE 80; RESP 18; TEMP 37.1; O2SAT 94; BMI 35.6
--- NOTE | 2024-12-26 10:26 | ECG_ITS ---
Test Reason : SHORTNESS OF BREATH Blood Pressure : */* mmHG Vent. Rate : 90 BPM Atrial Rate : 90 BPM P-R Int : 142 ms QRS Dur : 76 ms QT Int : 356 ms P-R-T Axes : 44 4 30 degrees QTcB Int : 435 ms Normal sinus rhythm Minimal voltage criteria for LVH, may be normal variant ( R in aVL ) Borderline ECG When compared with ECG of 12-Aug-2012 08:30, No significant changes seen Referred By: Generic ED Physician Electronically Signed By: VIANNEY BLANCO MD
[2024-12-26 10:53] LABS: MANUAL DIFF FLAG NO
[2024-12-26 10:56] LABS: Hematocrit 43.6 % (37.0-47.0); Hemoglobin 14.2 g/dl (12.0-16.0); Imm Gran Abs Auto 0.02 X10*3/uL (0.00-0.03); Imm Gran Pct Auto 0.3 % (0.0-0.4); Lymphocytes Absolute Auto 1.9 X10*3/uL (1.2-4.9); Mean Corpuscular HGB Conc 32.6 g/dl (31.0-35.0); Mean Corpuscular Hemoglobin 28.3 pg (27.0-33.0); Mean Corpuscular Volume 86.9 fL (80.0-98.0); NRBC Abs Auto 0.000 X10*3/uL (0.0-0.012); NRBC Pct Auto 0.0 /100WBC (0.0-0.2); Platelet Count 215 X10*3/uL (160-400); Red Blood Count 5.02 X10*6/uL (4.20-5.50); White Blood Count 5.8 X10*3/uL (4.8-10.8)
--- OUTSIDE RECORDS SUMMARY | 2024-12-26 10:59 | XMS_ITS | Encounter Summary ---
Author Organization [employer] Address [address] [facility] 7t [place] [address] Care Team Providers Care Counselor Education Professor Name Role Phone Unavailable Primary Care Provider Unavailabl e Encounter Details Date Type Department Care Team (Latest Contact Info) Description 07/24/2021 Abstract [facility] CONVERSIONS Dental, Provider, DDS Social History [...] Description 02/26/2025 8:00 AM EST Office Visit [facility] ADULT DENTAL [address] [place] [address] Ricky Santosaris [address] [place] [address] documented as of this encounter Visit Diagnoses Not on filedocumented in this encounter
--- OUTSIDE RECORDS SUMMARY | 2024-12-26 11:00 | XMS_ITS | Clinical Summary ---
Author Organization [employer] Address [address] [facility] [address] [place] [address] Care Team Providers Care Engine Room Operator Name Role Phone Unavailable Primary Care [...] 09/24/2011 Immunizations Immunization Administration Dates Next Due [employer] Covid-19 Vaccine 12+ Bivalent 04/23/2022 Social History [...] Description 02/26/2025 8:00 AM EST Office Visit [facility] ADULT DENTAL [address] [place] [address] Tom, Shikha [address] [place] [address] Health Maintenance Due Date Last Done Comments [...] 1-dose series) 2023 COVID-19 Vaccine ( season) 2024 01/21/2023, 04/23/2022, 10/05/2021, Additional history exists Influenza [...] Most Recently Relevant to Health Maintenance Insurance [facility] A[facility] D[facility]AL-[facility] MEDICAID STAND ADULT
--- OUTSIDE RECORDS SUMMARY | 2024-12-26 11:00 | XMS_ITS | Encounter Summary ---
Author Organization [employer] Address [address] [facility] [address] [place] [address] Care Team Providers Care Complementary Health Therapists Name Role Phone Unavailable Primary Care Provider Unavailabl e Reason for Visit * Reason Onset Date Comments unable to post portal PAR 06/12/2024 Encounter Details Date Type Department Care Team (Late st Contact Info) Description 06/12/2024 Telephone [facility] ADULT DENTAL [address] [place] [address] Sarahy Edwards DDS [address] [place] [address] unable to post portal PAR Social History [...] Description 02/26/2025 8:00 AM EST Office Visit [facility] ADULT DENTAL [address] [place] [address] Shikha Santos [address] [place] [address] documented as of this encounter Visit Diagnoses Not on filedocumented in this encounter
[2024-12-26 11:11] LABS: Alanine Aminotransferase 17 U/L (0-31); Albumin Level 4.2 g/dL (3.5-5.0); Alkaline Phosphatase 105 U/L (39-117); Anion Gap 14 (12-20); Aspartate Amino Transferase 12 U/L (5-31); Blood Urea Nitrogen 11 mg/dL (9-16); Calcium 9.6 mg/dL (8.4-10.2); Carbon Dioxide 25 mmol/L (22-29); Chloride 106 mmol/L (96-108); Creatinine Clr Calc Pharmacy 101.0; Estimated Glomerular Filt Rate > 60; Potassium 3.7 mmol/L (3.3-5.1); Sodium 141 mmol/L (135-145); Total Protein 7.5 g/dL (6.5-8.0)
--- NOTE | 2024-12-26 11:21 | ED_ITS ---
HPI - General Adult General Chief complaint: Upper Respiratory Symptoms Stated complaint: cough headache sore throat Time Seen by Provider: 12/26/24 11:14 Source: patient and family () Mode of arrival: ambulatory Limitations: no limitations History of Present Illness ED Provider: ALYSSA BACON PA-C HPI narrative: 59 yo F with PMH HTN, HLD, and MDD presents to the ED today for evaluation of headache, body aches, cough, and subjective fever/chills x 4 days. Reports multiple sick contacts, including her . Reports trying APAP without improvement. Did not take any today. Endorses mild nausea without vomitting. Endorses SOB and chest pain (soreness) secondary to coughing. Reports cough worsens at night. Reports facial pressure/sinus congestion, mild sore throat. Related Data Home Medications ?Medication ?Instructions ?Recorded ?Confirmed hydroxyzine HCl 25 mg tablet 25 mg PO BID PRN 04/11/20 10/19/24 sertraline 100 mg tablet 150 mg PO QAM 05/03/2010/19 Previous Rx's ?Medication ?Instructions ?Recorded cane #1 ea 12/06/21 docusate sodium 100 mg capsule 200 mg (2 x 100 mg) PO BEDTIME 12/09/23 #180 caps hydrochlorothiazide 25 mg tablet 25 mg PO DAILY 90 day s #90 tabs 12/26/23 polyethylene glycol 3350 17 238 g PO ONCE #238 grams 0 08/14/24 gram/dose oral powder (Miralax) bisacodyl 5 mg tablet,delayed 20 mg (4 x 5 mg) PO ONCE #4 tabs 08/18/24 release bismuth subsalicylate 262 mg 262 mg PO QID #56 tabs tablet (Pepto-Bismol) omeprazole 20 mg capsule,delayed 20 mg PO BID #28 caps 10/06/24 release blood pressure monitor #1 ea 11/10/24 azithromycin 250 mg tablet See Rx Instructions PO .COM PLEX #6 12/26/24 tabs prednisone 20 mg tablet 40 mg (2 x 20 mg) PO DAILY 5 days 12/26/24 #10 tabs Allergies Allergy/AdvReac Type Severity Reaction Status Date / Time Seasonal Allergies Allergy Intermediate runny Verified 12/26/24 10:24 nose, sore throat metronidazole AdvReac Severe headaches Verified 12/26/24 10:24 Review of Systems 2 Review of Systems: Yes all other systems are reviewed and are negative [facility] Past Medical History Attestation statement: The following information was validated with the patient. Source: old records reviewed and nursing notes reviewed Medical History Acid reflux Epigastric abdominal pain Breast calcification, right Physical exam Mild recurrent major depression Right knee pain Essential hypertension ASCUS of cervix with negative high risk HPV Depression Migraines Hypovitaminosis D Pure hypercholesterolemia Surgical History History of endometrial ablation History of breast biopsy History of tubal ligation Family History Family History Father Hypertension CVD (cardiovascular disease) Diabetes Mother Hypertension Diabetes Hypercholesteremia Sister Lung cancer Family/Other FH: mental illness Social History Social History Household Members: Spouse Housing: Apartment Alcohol intake: never Patient Tobacco Use Status: Never used Tobacco e-Cigarette/Vaping Use: Never Used Second Hand Smoke Exposure: No Advance Directives: No Advance Directives Information Provided: No Do you have a plan to hurt others: No Plan service: No Current occupational status: unemployed 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 Skin: Warm, dry, intact. No rashes or lesions. Head: Normocephalic, atraumatic. EENT: Hearing is intact b/l. Conjunctiva clear. Sclera is anicteric. PERRLA. EOM intact. Moist mucous membranes.? Neck: Supple without LAD Cardiac: Chest wall symmetric. RRR Lungs: Normal respiratory effort without accessory muscle use. CTA bilaterally. No rales, rhonchi, or wheezes.? Abdomen: Soft, non-tender, non-distended. No rebound tenderness or guarding. Positive BS x4. Ext: Upper and lower extremities atraumatic, without tenderness, deformity, swelling or erythema Neuro: AOx3. Normal speech. Ambulating with steady gait. Course Course Course Narrative: CBC without leukocytosis or left shift. No anemia. H&H stable. Chemistry without acute electrolyte abnormality requiring intervention. No FILIBERTO. Random glucose 152, no gap. Liver function WNL. Troponin undetectable. BNP undetectable. Negative COVID, flu, strep. S x-ray showing minimal interstitial prominence, no focal consolidation or infiltrate. EKG showing normal sinus rhythm, rate of 90 beats per minute, no acute ischemic changes or ST elevations. > patient has sustained 95-96% on ambulatory pulse ox. Did not endorse feeling short of breath. > patient has an upper respiratory infection. Will start her on prednisone and azithromycin. Her vitals have remained stable. > Patient has remained stable throughout ED visit today. Discussed worrisome signs and symptoms and when to return to the ED. All questions answered at this time. Patient is agreeable with disposition and stable for discharge. Medical Decision Making Medical Decision Making [facility] Narrative: 59 yo F with PMH HTN, HLD, and MDD presents to the ED today for evaluation of headache, body aches, cough, and subjective fever/chills x 4 days. Differential diagnosis includes viral syndrome, strep throat, bronchitis, pneumonia, upper respiratory infection. Unlikely ACS, PE, CHF, arrhythmia. Plan for labs, EKG, viral/strep swabs, chest x-ray, re-evaluation. Differential Diagnosis Differential Diagnoses: The differential diagnosis associated with the presentation includes as above. Admission/Observation not indicated. Lab Data [facility] Lab Attestation statement: I reviewed the patient's lab results. as above. 12/26/24 10:49 12/26/24 10:49 Labs: Lab Results 12/26/24 12/26/24 Range/Units 10:49 11:26 WBC 5.8 (4.8-10.8) X10*3/uL RBC 5.02 (4.20-5.50) X10*6/uL Hgb 14.2 (12.0-16.0) g/dl Hct 43.6 (37.0-47.0) % MCV 86.9 (80.0-98.0) fL MCH 28.3 (27.0-33.0) pg MCHC 32.6 (31.0-35.0) g/dl RDW 14.3 (11.0-16.0) % Plt Count 215 (160-400) X10*3/uL MPV 9.8 (9.4-12.3) fL Immature Gran % (Auto) 0.3 (0.0-0.4) % Neut % (Auto) 52.4 (45-73) % Lymph % (Auto) 32.8 (20-40) % Emmet % (Auto) 10.0 (2-11) % Eos % (Auto) 4.0 (0-4) % Baso % (Auto) 0.5 (0-2) % Lymph # (Auto) 1.9 (1.2-4.9) X10*3/uL Emmet # (Auto) 0.6 (0.1-1.2) X10*3/uL Eos # (Auto) 0.2 (0.0-0.4) X10*3/uL Baso # (Auto) 0.0 (0.0-0.2) X10*3/uL Abs Immat Gran (auto) 0.02 (0.00-0.03) X10*3/uL Absolute Neuts (auto) 3.0 (2.0-8.3) x10*3/uL Absolute Nucleated RBC 0.000 (0.0-0.012) X10*3/uL Nucleated RBC % (auto) 0.0 (0.0-0.2) /100WBC Sodium 141 (135-145) mmol/L Potassium 3.7 (3.3-5.1) mmol/L Chloride 106 (96-108) mmol/L Carbon Dioxide 25 (22-29) mmol/L Anion Gap 14 (12-20) BUN 11 (9-16) mg/dL Creatinine 0.58 (0.5-1.4) mg/dL Estim Creat Clear Calc 101.0 Estimated GFR > 60 Random Glucose 152 H (60-115) mg/dL Calcium 9.6 (8.4-10.2) mg/dL Total Bilirubin 0.3 (0.0-1.0) mg/dL AST 12 (5-31) U/L ALT 17 (0-31) U/L Alkaline Phosphatase 105 (39-117) U/L Troponin I High Sens < 2.7 (<3.5-17.0) ng/L B-Natriuretic Peptide < 10 (<100) pg/mL Total Protein 7.5 (6.5-8.0) g/dL Albumin 4.2 (3.5-5.0) g/dL COVID-19 (LIT) Negative (Negative) COVID-19 Clin Com See Note Influenza Type A (NIKITA) Negative (Negative) Influenza Type B (NIKITA) Negative (Negative) Influenza A & B Note See Note S. pyogenes GrpA NIKITA Negative (Negative) Independent Interpretation I performed an independent interpretation of an: EKG and Plain X-Ray Interpretation: ekg showing nsr with a rate of 90 bpm, no acute ischemic changes or st elevations cxr without focal infiltrate or consolidation Radiology Impression Discussion of test interpretation with radiology: I have reviewed the radiologist's reading. Radiologist Impression: Procedure(s): XR chest 1V Accession Number(s): [id number] cc: Generic ED Physician; Darleen Laguna MD~ Reason for Exam: sob CLINICAL HISTORY: sob 1 view chest x-ray. Comparison: None Findings: The lungs are adequately expanded. Minimal interstitial prominence. No focal consolidation. No effusion or pneumothorax. Cardiac and mediastinal contours are within normal limits. No acute osseous abnormality Impression: Minimal interstitial prominence. No focal consolidation. This document has been electronically signed by: Jamel Naranjo MD on 12/26/2024 10:57:43 Independent Historian Clinical information obtained from an independent historian. History obtained from or confirmed by: Spouse External Record Review External record reviewed: Inpatient record Prescription Management I considered prescription management with: Antibiotic (azithromycin) and Other (prednisone) Social Determinants Patient?s care significantly limited by Social Determinants of Health including: Other Social Determinant of Health Critical Care Time Critical Care Time Critical Care Time: No Discharge Plan Discharge Clinical Impression: Upper respiratory infection Patient Disposition: Home, Self-Care Instructions: Upper Respiratory Infection (ED) Additional Instructions: You were evaluated in the ED today for flu-like symptoms. Your blood work is reassuring. You tested negative for COVID, flu, strep throat. Your chest x-ray does not demonstrate pneumonia. You likely have an upper respiratory infection. I am starting you on a short course of prednisone. Take this as prescribed. If you are diabetic, monitor your sugars at home as this can elevate them. I am also sending a 5 day course of antibiotics to your pharmacy. Take this as prescribed and to completion. Take Tylenol and Motrin at home for pain/fevers. I am also sending Pinky Alexis to your pharmacy for your cough. Follow up with your primary care provider as needed. Return with any new or worsening symptoms. In the case of an emergency call 911. Prescriptions: New prednisone 20 mg tablet 40 mg PO DAILY 5 Days Qty: 10 0RF azithromycin 250 mg tablet See Rx Instructions .ROUTE .COMPLEX Qty: 6 0RF Rx Instructions: For 250 mg dose pack: take 500 mg today (day 1), then 250 mg for 4 days (days 2-5) No Action (DME) cane Device See Rx Instructions .Route Qty: 1 0RF Rx Instructions: As directed docusate sodium 100 mg capsule 200 mg PO BEDTIME Qty: 180 1RF hydrochlorothiazide 25 mg tablet 25 mg PO DAILY 90 Days Qty: 90 1RF bisacodyl 5 mg tablet,delayed release (DR/EC) 20 mg PO ONCE Qty: 4 0RF Rx Instructions: per colonoscopy instructions omeprazole 20 mg capsule,delayed release(DR/EC) 20 mg PO BID Qty: 28 0RF Rx Instructions: Take tablet twice a day for 14 days Pepto-Bismol 262 mg tablet 262 mg PO QID Qty: 56 0RF Rx Instructions: Take one tablet four times daily for 14 days (DME) blood pressure monitor Kit See Rx Instructions .Route Qty: 1 0RF Rx Instructions: As directed hydroxyzine HCl 25 mg tablet 25 mg PO BID PRN sertraline 100 mg tablet 150 mg PO QAM polyethylene glycol 3350 [Miralax] 17 gram/dose powder 238 g PO ONCE Qty: 238 0RF Rx Instructions: per colonoscopy prep instructions Referrals: Darleen Laguna MD [Primary Care Provider, Internal Medicine] Interventions: ED Discharge Assessment Last Done: 12/26/24 13:59 Discharge Date/Time: 12/26/24 13:59 Print Language: Argentine
[2024-12-26 11:42] LABS: IDNOW Serial# 08D9AD1C; Strep A Nucleic Acid Negative (Negative)
[2024-12-26 11:48] VITALS: BP 151/76; PULSE 75; RESP 18; TEMP 36.9; O2SAT 94
[2024-12-26 11:48] LABS: COVID-19 Test Negative (Negative); IDNOW Serial# 55D5AD1C
[2024-12-26 11:51] LABS: IDNOW Serial# 58CA691E; Influenza B2 Negative (Negative)
--- NOTE | 2024-12-26 13:01 | MHC.EDTECH ---
I did a walking SAT on the patient and it started at O2 95% and went down to 94%
[2024-12-26 13:12] LABS: Troponin-I High Sensitivity < 2.7 ng/L (<3.5-17.0)
[2024-12-26 13:16] LABS: B Type Natriuretic Peptide < 10 pg/mL (<100)
[2024-12-26 13:59] VITALS: BP 151/76; PULSE 75; RESP 18; TEMP 36.9; O2SAT 94
== END 2024-12-26 13:59 | disposition home or self-care (01) ==
PROVIDERS: Physician Assistant Medical; Emergency Provider Emergency Medicine; PCP Internal Medicine
DX: J06.9 Acute upper respiratory infection, unspecified (principal); R06.02 Shortness of breath; R05.9 Cough, unspecified; R50.9 Fever, unspecified; R11.0 Nausea; Z03.818 Encounter for observation for suspected exposure to other biological agents ruled out
CPT/HCPCS: 36415; 71045; 80053; 83880; 84484; 85025; 87502; 87635; 87651; 93005; 99284

== ENCOUNTER → 2024-12-26 10:26 | Outpatient (BNV) | payer OTHER, SELFPAY | PROVIDERS: PCP Internal Medicine; Visit Provider Radiology Vascular & Interventional Radiology | DX: R06.02 Shortness of breath (principal) | CPT/HCPCS: 71045 ==

== ENCOUNTER → 2024-12-26 10:26 | Outpatient (BNV) | payer OTHER, SELFPAY | PROVIDERS: Emergency Provider Emergency Medicine; PCP Internal Medicine; Visit Provider Internal Medicine Cardiovascular Disease | DX: R06.02 Shortness of breath (principal) | CPT/HCPCS: 93010 ==

== ENCOUNTER 2025-01-05 09:17 | Outpatient (AMB) | payer OTHER, SELFPAY ==
[2025-01-05 09:23] VITALS: BP 144/70; PULSE 84; RESP 18; TEMP 36.3; O2SAT 94; BMI 35.2
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
--- OUTSIDE RECORDS SUMMARY | 2025-01-05 10:54 | XMS_ITS | Clinical Summary ---
Author Organization [email or web address] Address [address] [place] [address] Care Team Providers Care Stitcher Hand Name Role Phone Unavailable Primary Care Provider [...] 09/24/2011 Immunizations Immunization Administration Dates Next Due Beyond the Box Covid-19 Vaccine 12+ Bivalent 04/23/2022 Social History [...] 8:00 AM EST Office Visit [facility] ADULT DENTAL [address] [place] [address] Tom, Shikha [address] [place] [address] Health Maintenance Due Date Last Done Comments [...] Most Recently Relevant to Health Maintenance Insurance [facility] MEDICAID STAND ADULT
--- OUTSIDE RECORDS SUMMARY | 2025-01-05 10:54 | XMS_ITS | Encounter Summary ---
Author Organization [employer] Address [address] [place] [address] Care Team Providers Care Gut Carrier Name Role Phone Unavailable Primary Care Provider Unavailabl e Reason for Visit * Reason Onset Date Comments unable to post portal PAR 06/12/2024 Encounter Details Date Type Department Care Team (Late st Contact Info) Description 06/12/2024 Telephone [facility] ADULT DENTAL [address] [place] [address] Sarahy Edwards DDS [address] [place] [address] unable to post portal PAR Social History [...] Description 02/26/2025 8:00 AM EST Office Visit [facility] ADULT DENTAL [address] [place] [address] Shikha Santos [address] [place] [address] documented as of this encounter Visit Diagnoses Not on filedocumented in this encounter
--- OUTSIDE RECORDS SUMMARY | 2025-01-05 10:54 | XMS_ITS | Encounter Summary ---
Author Organization [employer] Address [address] [place] [address] Care Team Providers Care Manager Telemarketing Name Role Phone Unavailable Primary Care Provider Unavailabl e Encounter Details Date Type Department Care Team (Latest Contact Info) Description 07/24/2021 Abstract [facility] CONVERSIONS Dental, Provider, DDS Social History Tobacco [...] Description 02/26/2025 8:00 AM EST Office Visit [facility] ADULT DENTAL [address] [place] [address] Ricky Santosaris [address] [place] [address] documented as of this encounter Visit Diagnoses Not on filedocumented in this encounter
== END 2025-01-05 10:02 | disposition home or self-care (01) ==
LOC: HO.HMCH 09:17
PROVIDERS: PCP Internal Medicine; Visit Provider Internal Medicine
DX: F33.0 Major depressive disorder, recurrent, mild (principal); I10 Essential (primary) hypertension; E78.00 Pure hypercholesterolemia, unspecified; K21.9 Gastro-esophageal reflux disease without esophagitis; K59.09 Other constipation

== ENCOUNTER → 2025-01-05 09:17 | Outpatient (BNVA) | payer OTHER, SELFPAY | PROVIDERS: PCP Internal Medicine; Visit Provider Internal Medicine | DX: I10 Essential (primary) hypertension (principal); K21.9 Gastro-esophageal reflux disease without esophagitis; F33.0 Major depressive disorder, recurrent, mild; E78.00 Pure hypercholesterolemia, unspecified; K59.09 Other constipation; J06.9 Acute upper respiratory infection, unspecified; F41.8 Other specified anxiety disorders | CPT/HCPCS: 99212 ==

== ENCOUNTER 2025-02-03 07:52 | Day surgery (SDC) | payer OTHER, SELFPAY ==
--- OUTSIDE RECORDS SUMMARY | 2025-01-26 13:51 | XMS_ITS | Encounter Summary ---
Author Organization [employer] Address [address] [facility] [address] [place] [address] Care Team Providers Care Lining Stamper Name Role Phone Unavailable Primary Care Provider Unavailabl e Reason for Visit * Reason Onset Date Comments unable to post portal PAR 06/12/2024 Encounter Details Date Type Department Care Team (Late st Contact Info) Description 06/12/2024 Telephone [facility] ADULT DENTAL [address] [place] [address] Sarahy Edwards DDS [address] [place] [address] unable to post portal PAR Social History [...] [facility] ADULT DENTAL [address] [place] [address] Shikha Santos [address] [place] [address] documented as of this encounter Visit Diagnoses Not on filedocumented in this encounter
--- OUTSIDE RECORDS SUMMARY | 2025-01-26 13:51 | XMS_ITS | Clinical Summary ---
Author Organization [employer] Address [address] [place] [address] Care Team Providers Care Dental Tech Name Role Phone Unavailable Primary Care Provider [...] 09/24/2011 Immunizations Immunization Administration Dates Next Due Advanced [employer]ams Covid-19 Vaccine 12+ Bivalent 04/23/2022 Social History [...] Description 02/26/2025 8:00 AM EST Office Visit [facility] ADULT DENTAL [address] [place] [address] Tom, Shikha [address] [place] [address] Health Maintenance Due Date Last Done Comments [...] Most Recently Relevant to Health Maintenance Insurance [facility] MEDICAID STAND ADULT
--- OUTSIDE RECORDS SUMMARY | 2025-01-26 13:51 | XMS_ITS | Encounter Summary ---
Author Organization [employer] Address [address] [facility] [address] [place] [address] Care Team Providers Care Staff Forester Name Role Phone Unavailable Primary Care Provider Unavailabl e Encounter Details Date Type Department Care Team (Latest Contact Info) Description 07/24/2021 Abstract [facility] CONVERSIONS Dental, Provider, DDS Social [...] Description 02/26/2025 8:00 AM EST Office Visit [facility] ADULT DENTAL [address] [place] [address] Ricky Santosaris [address] [place] [address] documented as of this encounter Visit Diagnoses Not on filedocumented in this encounter
--- NOTE | 2025-02-01 13:07 | P.CONAN_ITS ---
Documented by User: Shayla Fisher NP 02/01/25 13:07 HPI - Anesthesia Eval Consult details Narrative: 59 yr old female for Upper Endoscopy and Colonoscopy PMF Active Problems Active Problems: All Active Problems Acid reflux (Acute) Epigastric abdominal pain (Acute) Diarrhea (Acute) Encounter for screening colonoscopy (Acute) Chronic constipation (Acute) Breast calcification, right (Acute) Physical exam (Acute) Osteoarthritis of right knee (Acute) Mild recurrent major depression (Acute) Right knee pain (Acute) Essential hypertension (Acute) Well woman exam (Acute) Abnormality of right breast on screening mammogram (Acute) Migraines (Acute) Hypovitaminosis D (Acute) Pure hypercholesterolemia (Acute) Past Medical History Medical History Acid reflux Epigastric abdominal pain Breast calcification, right Physical exam Mild recurrent major depression Right knee pain Essential hypertension ASCUS of cervix with negative high risk HPV Depression Migraines Hypovitaminosis D Pure hypercholesterolemia Family History Family History Father Hypertension CVD (cardiovascular disease) Diabetes Mother Hypertension Diabetes Hypercholesteremia Sister Lung cancer Family/Other FH: mental illness Surgical History Surgical History Hx of colonoscopy History of endometrial ablation History of breast biopsy History of tubal ligation Social History Social History (Updated 02/01/25 @ 16:20 by Fariha Macias RN) Household Members: Spouse Housing: Apartment Are you a primary healthcare corporate account director to a significant other at home: No Do you presently have visiting nurse or other home services: No Alcohol intake: never Patient Tobacco Use Status: Never used Tobacco e-Cigarette/Vaping Use: Never Used Second Hand Smoke Exposure: No Use of substances other than those prescribed or required for medical reasons: No Have you been hit, kicked, punched, or otherwise hurt by someone within the past year? 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 Sexual orientation: Straight/Heterosexual Gender identity: Female Cognitive needs: No Hearing needs: No Vision needs: Yes Meds Allergies Allergy/AdvReac Type Severity Reaction Status Date / Time Seasonal Allergies Allergy Intermediate runny Verified 02/03/25 08:36 nose, sore throat metronidazole AdvReac Severe headaches Verified 02/03/25 08:36 Home Medications ?Medication ?Instructions ?Recorded ?Confirmed ?Last Taken ?Type hydroxyzine HCl 25 mg tablet 25 mg PO BID PRN Anxiety 04/11/20 02/01/25 Unknown History sertraline 100 mg tablet 150 mg PO QAM 05/03/2002/01 Unknown History Documented by User: Josiane Madrigal MD 02/03/25 08:45 PMFSH Past Medical History Medical History Acid reflux Epigastric abdominal pain Breast calcification, right Physical exam Mild recurrent major depression Right knee pain Essential hypertension ASCUS of cervix with negative high risk HPV Depression Migraines Hypovitaminosis D Pure hypercholesterolemia Family History Family History Father Hypertension CVD (cardiovascular disease) Diabetes Mother Hypertension Diabetes Hypercholesteremia Sister Lung cancer Family/Other FH: mental illness Family history of problems with anesthesia: No Surgical History Surgical History Hx of colonoscopy History of endometrial ablation History of breast biopsy History of tubal ligation History of Problems with Anesthesia: No Social History Social History (Updated 02/01/25 @ 16:20 by Fariha Macias RN) Household Members: Spouse Housing: Apartment Are you a primary healthcare corporate account director to a significant other at home: No Do you presently have visiting nurse or other home services: No Alcohol intake: never Patient Tobacco Use Status: Never used Tobacco e-Cigarette/Vaping Use: Never Used Second Hand Smoke Exposure: No Use of substances other than those prescribed or required for medical reasons: No Have you been hit, kicked, punched, or otherwise hurt by someone within the past year? 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 Sexual orientation: Straight/Heterosexual Gender identity: Female Cognitive needs: No Hearing needs: No Vision needs: Yes Meds Allergies Allergy/AdvReac Type Severity Reaction Status Date / Time Seasonal Allergies Allergy Intermediate runny Verified 02/03/25 08:36 nose, sore throat metronidazole AdvReac Severe headaches Verified 02/03/25 08:36 Home Medications ?Medication ?Instructions ?Recorded ?Confirmed ?Last Taken ?Type hydroxyzine HCl 25 mg tablet 25 mg PO BID PRN Anxiety 04/11/20 02/01/25 Unknown History sertraline 100 mg tablet 150 mg PO QAM 05/03/2002/01 Unknown History Exam Airway Mallampati Class: II TM Dist: >3cm Neck ROM: Full Heart: rrr Lungs: cta Assessment and Plan Assessment Anesthesia Assessment: Anesthesia Plan Discussed and Chart Reviewed Final Anesthetic Review Family History of Problems with Anesthesia: No History of Problems with Anesthesia: No NPO: Yes ASA Class: II Final Preanesthetic Review: No Changes in Pt Med Stat, Meds/Allgs Chart Reviewed and Consent Obtained/Reviewed Patient Risk: Intermediate Procedure Risk: Intermediate Anesthetic Plan Anesthetic Plan: MAC: Disposition: Standard PACU
[2025-02-01 16:20] VITALS: BMI 35.0
[2025-02-03] MEDS: Lactated Ringers 1,000 ML 100 ML IVCONT (08:26)
[2025-02-03 08:34] VITALS: BP 143/71; PULSE 98; RESP 18; TEMP 36.6; O2SAT 96
--- NOTE | 2025-02-03 09:02 | MHC.SHP ---
Pre-Procedural Eval Section A - 24 Hr Update-Section A only Date of Service: 02/03/25 Section B - Complete if H&P > 30 days Chief Complaint: gerd,screening Details of Present Illness: Acid reflux Epigastric abdominal pain Breast calcification, right Physical exam Mild recurrent major depression Right knee pain Essential hypertension ASCUS of cervix with negative high risk HPV Depression Migraines Hypovitaminosis D Pure hypercholesterolemia Surgical History History of endometrial ablation History of breast biopsy History of tubal ligation Present Medications: see Short Stay Collaborative assessment Allergies: Allergies Allergy/AdvReac Type Severity Reaction Status Date / Time Seasonal Allergies Allergy Intermediate runny Verified 02/03/25 08:36 nose, sore throat metronidazole AdvReac Severe headaches Verified 02/03/25 08:36 Review of Systems Review of Systems Comment: Ten point ROS negative Exam Exam Comment: Gen appear: No acute distress HEENT: no icterus Chest: No overt resp distress Abd: soft, nontender, nondistended Psych: Stable affect, answering questions appropriately Neuro: A/Ox3 noted to move all extremities spontaneously Ext: no peripheral edema Plan Diagnosis/Plan: Unchanged I have reviewed the history and physical and performed a pertinent physical examination on my patient. No changes have occurred unless specified. Time Spent With Patient Time: Total time managing care of this patient today ____ minutes.
--- NOTE | 2025-02-03 10:17 | P.OPN-COLO_ITS ---
Colonoscopy Operative Note Operative Note Date of Service: 02/03/25 Narrative: Procedure: Upper endoscopy and colonoscopy Indication: GERD, screening Endoscopist: Jocelynn Sauceda MD Anesthesia Provider: Dolly Moeller CRNA Anesthesia type: MAC Instrument: [id number] and [id number]-[id number] EGD Procedure:?? The procedure, indications, preparation and potential complications were reviewed with the patient, who indicated understanding and gave written informed consent to proceed. The endoscope was introduced through the mouth, and advanced to the 2nd part of the duodenum. The mucosa was carefully examined on slow withdrawal of the endoscope. The patient tolerated the procedure well. There were no immediate complications.? EGD Findings:? * Esophagus:? Normal esophageal mucosa was noted. The Z-line was at 35 cm and irregular to 34 cm. Cold forceps biopsies were taken from GE junction to rule out Johnson's esophagus. A Tissue Cypher will also be sent if metaplasia present. * Stomach:?Atrophic appearing mucosa in the gastric body and antrum. A single polyp measuring 3 mm noted at incisura. Cold forceps polypectomy was performed. Retroflexion was performed in the cardia. Random cold forceps biopsies were taken from the stomach. * Duodenum:? Normal duodenal mucosa. Colonoscopy Procedure:? The patient was then turned for the colonoscopy. A digital rectal exam was performed which was normal.? A distal attachment cap was affixed to the tip of the scope and the colonoscope was then inserted through the anus and advanced through the colon and advanced to the cecum at 75 cm and terminal ileum.? Appendiceal orifice and ileocecal valve were identified. Mucosa was carefully examined under high definition white light as the instrument was slowly withdrawn in a retrograde panoramic fashion. Retroflexion was performed in rectum. The procedure was not difficult. The quality of the prep was BBPS: 3+2+3 = adequate Withdrawal time 14 minutes Limitations: No limitations Findings: Mucosa: Normal colon and terminal ileum mucosa. Protruding lesions: * 1 pedunculated polyp of size 15 mm noted in sigmoid colon at 30 cm. 1 cc of epinephrine was injected the base of the polyp. Hot snare polypectomy was p erformed. The polyp was completely removed and retrieved. There was small amount of bleeding. [place] scientific resolution clips x 2 were placed at the base of the polypectomy with immediate hemostasis. * Medium internal hemorrhoids without stigmata of recent bleeding. Excavated lesions: * Mild diverticulosis of sigmoid colon. Impression: 1. Irregular Z line (biopsy, tissue cypher) 2. R/o atrophic gastritis 3. Gastric polyp (polypectomy) 4. Normal duodenum (biopsy) 5. Normal colon and terminal ileum mucosa 6. 1 polyp removed (epi, hot snare, endoclips) 7. Diverticulosis 9. Internal and external hemorrhoids Recommendations:?? * Follow-up path results * Avoid NSAIDs * H Pylori treatment if biopsies + * Repeat colonoscopy in 3 years
[2025-02-03 10:19] VITALS: BP 134/67; PULSE 89; RESP 16; TEMP 36.1; O2SAT 96
[2025-02-03 10:34] VITALS: BP 152/82; PULSE 84; RESP 16; TEMP 36.1; O2SAT 96
--- NOTE | 2025-02-03 11:03 | PC.NURSE ---
PATIENT SPEAKS SWEDISH AND STATED SHE DID NOT NEED AN COUNTER POCKET TRIMMER.
== END 2025-02-03 11:03 | disposition home or self-care (01) ==
PROVIDERS: PCP Internal Medicine; Visit Provider Internal Medicine
PROC: (CPT 45385; principal; 2025-02-03 12:20)
DX: Z12.11 Encounter for screening for malignant neoplasm of colon (principal); D12.5 Benign neoplasm of sigmoid colon; K57.30 Diverticulosis of large intestine without perforation or abscess without bleeding; K64.8 Other hemorrhoids; K64.4 Residual hemorrhoidal skin tags; R10.13 Epigastric pain; K21.9 Gastro-esophageal reflux disease without esophagitis; K31.7 Polyp of stomach and duodenum; K29.50 Unspecified chronic gastritis without bleeding; B96.81 Helicobacter pylori [H. pylori] as the cause of diseases classified elsewhere; Q39.8 Other congenital malformations of esophagus; I10 Essential (primary) hypertension; E78.00 Pure hypercholesterolemia, unspecified; E55.9 Vitamin D deficiency, unspecified; G43.909 Migraine, unspecified, not intractable, without status migrainosus; J30.2 Other seasonal allergic rhinitis; F33.0 Major depressive disorder, recurrent, mild; Z79.899 Other long term (current) drug therapy; Z98.890 Other specified postprocedural states; Z56.0 Unemployment, unspecified
CPT/HCPCS: 45385; 45381; 43239; 88305; 88313; 88341; 88342; J0168; J2003; J2704

== ENCOUNTER → 2025-02-03 07:52 | Outpatient (BNV) | payer OTHER, SELFPAY | PROVIDERS: PCP Internal Medicine; Visit Provider Internal Medicine | DX: Z12.11 Encounter for screening for malignant neoplasm of colon (principal); D12.5 Benign neoplasm of sigmoid colon; K57.30 Diverticulosis of large intestine without perforation or abscess without bleeding; K64.8 Other hemorrhoids; K21.9 Gastro-esophageal reflux disease without esophagitis; K22.89 Other specified disease of esophagus; K29.70 Gastritis, unspecified, without bleeding; K31.7 Polyp of stomach and duodenum | CPT/HCPCS: 43239; 45381; 45385 ==

== ENCOUNTER 2025-02-24 12:44 | Outpatient (AMB) | payer OTHER, SELFPAY ==
[2025-02-24 13:09] VITALS: BP 151/70; PULSE 81; BMI 35.4
--- NOTE | 2025-02-24 13:09 | MHC.OFFVIS ---
Vital Signs 02/24/25 13:09 Height 5 ft 1 in Weight 187 lb 6.287 oz BMI 35.4 BP 151/70 H Blood Pressure Location Lt brachial Position Sitting Pulse 81 Intake Visit Reasons: s/p double Intake Note: Yulissa presents in the office as a follow up for EGD and COLO. CC: just here for results! Emergency Care Tech Required: No Allergies Seasonal Allergies Allergy (Intermediate, Verified 02/03/25 08:36) runny nose, sore throat HPI HPI s/p double: Details: Patient is a 58-year-old female with PMH of depression, migraines, hyperlipidemia and hypertension. F/u for review of results from recent EGD and colonoscopy performed 02-03-2025. Pt continues to experience some upper GI discomfort, described as reflux and occasional stomach pain, also reporting BALTAZAR and GI side effects with prior abx tx. Pt did not complete previous H. pylori regimen (only 3 days of abx due to intolerable BALTAZAR and stomach pain). Has had challenges eating full meals when taking meds, often using crackers instead of a substantial meal. Bowel pattern: pattern variable, mild constipation reported (hard, small caliber stool, occasional pain), generally BM qd with rare missed days. No hematochezia, N/V, or fevers. Reports omeprazole effective in controlling reflux. Denies recent hospitalizations/urgent care visits. [facility] Medical History (Updated 02/24/25 @ 14:24 by Yudi Jimenez CNP) Constipation Diverticulosis Tubular adenoma Helicobacter pylori gastritis Acid reflux Epigastric abdominal pain Breast calcification, right Physical exam Mild recurrent major depression Right knee pain Essential hypertension ASCUS of cervix with negative high risk HPV Depression Migraines Hypovitaminosis D Pure hypercholesterolemia Surgical History Hx of colonoscopy History of endometrial ablation History of breast biopsy History of tubal ligation Family History Father Hypertension CVD (cardiovascular disease) Diabetes Mother Hypertension Diabetes Hypercholesteremia Sister Lung cancer Family/Other FH: mental illness Social History (Updated 02/01/25 @ 16:20 by Fairha Macias RN) Household Members: Spouse Housing: Apartment Are you a primary respiratory care assistant to a significant other at home: No Do you presently have visiting nurse or other home services: No Alcohol intake: never Patient Tobacco Use Status: Never used Tobacco e-Cigarette/Vaping Use: Never Used Second Hand Smoke Exposure: No service: No Current occupational status: unemployed 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 Sexual orientation: Straight/Heterosexual Gender identity: Female Cognitive needs: No Hearing needs: No Vision needs: Yes Female Reproductive History Menstrual Age of Menarche: 9 Review of Systems Const Reports as per HPI ENT Reports as per HPI Card Reports as per HPI Resp Reports as per HPI GI Reports as per HPI Reports as per HPI Physical Exam Vital Signs: Last Vital Signs Pulse 81 02/24/25 13:09 BP 151/70 H 02/24/25 13:09 BMI result Body Mass Index 35.4 Const General: healthy appearing, no acute distress and well developed Nutritional Appearance: average body habitus Orientation/consciousness: patient oriented x3 HEENT Head: Yes normal to inspection, Yes normocephalic and Yes atraumatic Face and sinus: Yes normal facial exam Eyes General: appearance normal, both eyes and all related structures Neck Neck: Yes normal visual inspection Resp Effort & Inspection: normal respiratory effort, able to speak in complete sentences, no tracheal deviation and symmetric chest movement Cardio Jugular venous distension: no JVD GI Inspection: Yes normal to inspection, No distended, Yes obesity and Yes striae Palpation (GI): Soft to palpation, not firm, nontender and No hepatosplenomegaly present Auscultation: normal bowel sounds Neuro General: patient oriented x3 Gait exam (Neuro): Normal gait present Psych Appearance: grossly normal Mental Status: mental status grossly normal Speech and movement: Normal speech and movement present Affect: normal affect Attitude: cooperative Thought process: Normal thought process present Thought content: Normal thought content present Insight: Good insight present (Psych) Judgement: Good judgement present (Psych) Assessment & Plan Assessment & Plan (1) Helicobacter pylori gastritis: Comment: 02/03/25 EGD Irregular Z line, gastritis (r/o atrophic), positive H pylori, polypoid Gastric polyp, Normal duodenum Code(s): K29.70 - Gastritis, unspecified, without bleeding; B96.81 - Helicobacter pylori [H. pylori] as the cause of diseases classified elsewhere Category: Medical Plan: Persistent H. pylori infection confirmed by recent EGD, previous abx course incomplete due to intolerance (BALTAZAR, abdominal pain). Modifying regimen to stagger abx courses for better tolerance. Additional testing: H. pylori retesting (stool Ag or urea breath test) 4 weeks after therapy completion. Medications: - Tetracycline 500mg PO QID x14d with meals. - Pepto Bismol (bismuth subsalicylate) tabs PO with each dose above. - Omeprazole 20mg PO BID x 4 weeks (increase from QD for duration of therapy). - Start probiotic daily for GI protection. - After 2wks, add metronidazole 500mg PO TID x14d (to complete staggered regimen). - [employer] on strict meal requirements with meds to minimize GI SE. - Monitor for BALTAZAR, GI upset; contact clinic if intolerable. Lifestyle Recommendations: Reinforced high-quality, regular meals with every abx dose. Encouraged balanced diet, increased water, and limited caffeine/coffee to decrease irritation. Follow-Up Plan: Clinic f/u in 4 weeks?to review compliance, assess sx, arrange H. pylori retest. Monitor for SE. (2) Tubular adenoma: Comment: 02/03/25 colonoscopy- size 15 mm TA (sigmoid colon), Mild diverticulosis (sigmoid), Internal and external hemorrhoids. Repeat colonoscopy in 3 years (2027) Code(s): D36.9 - Benign neoplasm, unspecified site Category: Medical Plan: Adenoma resected, pathology negative for ca. Increased CRC risk?needs closer surveillance. Additional testing: None required until interval colonoscopy due. Medications: None. Lifestyle Recommendations: Reinforce CRC risk, importance of surveillance. Referrals / Coordination of Care: Schedule repeat colonoscopy in 3 years (2027). Follow-Up Plan: Note in record for reminder; reinforce adherence to CRC screening interval. (3) Diverticulosis: Code(s): K57.90 - Diverticulosis of intestine, part unspecified, without perforation or abscess without bleeding Category: Medical Plan: Asymptomatic. Prevent diverticulitis via diet/hydration. Additional testing: None needed unless sx. Medications: None. Lifestyle Recommendations: Increase dietary fiber (fruits, vegetables, whole grains); encourage water and minimize caffeinated/irritating foods as tolerated. Follow-Up Plan: Ongoing routine f/u; awake overnight counselor on sx of diverticulitis. (4) Constipation: Code(s): K59.00 - Constipation, unspecified Category: Medical Qualifiers: Constipation type: unspecified constipation type Qualified Code(s): K59.00 - Constipation, unspecified Plan: Mild, isolated Hard/low-volume BMs. Related to diet; no acute findings. Additional testing: None. Medications: Continue probiotic; no laxative needed unless sx worsen. Lifestyle Recommendations: Emphasize fiber intake, hydration, and regular meals. Limit caffeine. Follow-Up Plan: Monitor symptoms at next visit; escalate if persistent. Plan Follow-up in 4 weeks or sooner as needed Time: I spent a total of 30 minutes on the date of encounter which includes: Preparing to see the patient (reviewed previous documentation, test results and medical history) Performing a medically appropriate exam and/or evaluation Ordering medications, tests, and procedures Documenting clinical information in the health record Medications: New tetracycline Take one tablet four times daily for 14 days 500 mg PO QID 56 caps 0RF 14 days metronidazole take on tablet three times daily for 14 days. Start after completion of tetracycline course 500 mg PO TID 42 tabs 0RF Lactobacillus acidophilus Take once tablet twice daily until complete 10,000 mmu cells PO BID 60 caps 0RF Changed From omeprazole Take tablet twice a day for 14 days 20 mg PO BID 28 caps 0RF To omeprazole Take tablet twice a day for 4 weeks 20 mg PO BID 56 caps 0RF 4 weeks From bismuth subsalicylate (Pepto-Bismol) Take one tablet four times daily for 14 days 262 mg PO QID 56 tabs 0RF To bismuth subsalicylate (Pepto-Bismol) Take one tablet four times daily for 4 weeks 262 mg PO QID 112 tabs 0RF 4 weeks Coding Level of Care Code Established Pt Est Pt Level 3 (63856) Patient Type Established Diagnoses Helicobacter pylori gastritis K29.70; B96.81 Tubular adenoma D36.9 Diverticulosis K57.90 Constipation, unspecified constipation type K59.00 Constipation type: unspecified constipation type
--- OUTSIDE RECORDS SUMMARY | 2025-02-24 15:21 | XMS_ITS | Encounter Summary ---
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 ADULT DENTAL [address] [place] [address] Sarahy Edwards DDS [address] [place] [address] unable to post portal PAR Social History [...] 8:00 AM EST Office Visit [facility] ADULT DENTAL [address] [place] [address] Shikha Santos [address] [place] [address] documented as of this encounter Visit Diagnoses Not on filedocumented in this encounter
--- OUTSIDE RECORDS SUMMARY | 2025-02-24 15:21 | XMS_ITS | Encounter Summary ---
Author Organization [employer] Address [address] [facility] [address] [place] [address] Care Team Providers Care Last Sorter Name Role Phone Unavailable Primary Care Provider [...] [facility] ADULT DENTAL [address] [place] [address] Ricky Santosaris [address] [place] [address] documented as of this encounter Visit Diagnoses Not on filedocumented in this encounter
--- OUTSIDE RECORDS SUMMARY | 2025-02-24 15:21 | XMS_ITS | Clinical Summary ---
Author Organization [employer] Address [address] [facility] [address] [place] [address] Care Team Providers Care Divine Healer Name Role Phone Unavailable Primary Care Provider [...] 09/24/2011 Immunizations Immunization Administration Dates Next Due Myngle Covid-19 Vaccine 12+ Bivalent 04/23/2022 Social History [...] Description 02/26/2025 8:00 AM EST Office Visit [facility] ADULT DENTAL [address] [place] [address] Tom, Shikha [address] [place] [address] Health Maintenance Due Date Last Done Comments [...] 2) 03/27/2022 01/30/2022 COVID-19 Vaccine ( season) 2024 01/21/2023, 04/23/2022, 10/05/2021, Additional history exists Influenza Vaccine (#1) 2024 , 01/16/2024, 01/17/2023, Additional history exists Dental X-Ray: Bitewings 06/13/2025 06/12/19 25, 07/24/2021, 04/04/2016, Additional history exists Tobacco Screening 08/11/2025 08/11/2024 DTaP/Tdap/Td Vaccines (2 - Td or Tdap) 01/19/2026 01/20/2016, 09/05/2012, 10/21/2009, Additional history exists Dental X-Ray: Full Mouth 08/13/2027 025, 07/24/2021, 06/22/2013 RSV Patients and Patients Aged 60 years [...] Most Recently Relevant to Health Maintenance Insurance [facility] MEDICAID STAND ADULT
== END 2025-02-24 14:08 | disposition home or self-care (01) ==
LOC: HO.HGI 12:45
PROVIDERS: PCP Internal Medicine; Visit Provider Nurse Practitioner Family
DX: K29.70 Gastritis, unspecified, without bleeding (principal); B96.81 Helicobacter pylori [H. pylori] as the cause of diseases classified elsewhere; D36.9 Benign neoplasm, unspecified site; K57.90 Diverticulosis of intestine, part unspecified, without perforation or abscess without bleeding; K59.00 Constipation, unspecified
CPT/HCPCS: 99213

== ENCOUNTER → 2025-02-24 12:44 | Outpatient (BNVA) | payer OTHER, SELFPAY | PROVIDERS: PCP Internal Medicine; Visit Provider Nurse Practitioner Family | DX: K29.70 Gastritis, unspecified, without bleeding (principal); B96.81 Helicobacter pylori [H. pylori] as the cause of diseases classified elsewhere; K57.90 Diverticulosis of intestine, part unspecified, without perforation or abscess without bleeding; K59.00 Constipation, unspecified; Z86.0101 Personal history of adenomatous and serrated colon polyps | CPT/HCPCS: 99212 ==

== ENCOUNTER 2025-03-31 11:43 | Outpatient (AMB) | payer OTHER, SELFPAY ==
--- NOTE | 2025-03-31 12:05 | A.OFFVIS_ITS ---
Vital Signs 03/31/25 12:22 Height 5 ft 1 in Weight 190 lb BMI 35.9 BP 160/77 H Blood Pressure Location Lt brachial Position Sitting Pulse 96 Intake Visit Reasons: f/u H. pylori tx Intake Note: Patient follow up for Constipation and h pylori test. Patient cc: for the past month have been experiencing diarrhea, that has trigger her hemorrhoids and had constant burning pain with bm, medication Rx in last visit has been causing dizzines, nausea, loss of appettite, sensation of fullness after a few bites Record Searcher Required: Yes Record Searcher Language: Combination Machine Tender Services: Record Searcher Present Record Searcher Name: [id number] Information Interpreted: non-clinical & clinical Accompanied by: Self / Same As Patient Allergies Seasonal Allergies Allergy (Intermediate, Verified 03/31/25 12:22) runny nose, sore throat Medication List - Last Reconciled 03/31/25 by Yudi Jimenez CNP blood pressure monitor As directed cane As directed docusate sodium 200 mg (2 x 100 mg) PO BEDTIME fluconazole 150 mg PO ONCE 1 day hydrochlorothiazide 25 mg PO DAILY 90 days hydroxyzine HCl 25 mg PO BID PRN Lactobacillus acidophilus 10,000 mmu cells PO BID losartan 100 mg PO DAILY omeprazole 20 mg PO BID 4 weeks sertraline 150 mg PO QAM HPI HPI f/u H. pylori tx: Details: Patient is a 58-year-old Venezuelan-speaking female with PMH of depression, migraines, hyperlipidemia and hypertension. Follow-up for Helicobacter pylori treatment. Due to intolerance of standard quadruple therapy, her regimen was adjusted to sequential therapy consisting of tetracycline with omeprazole and bismuth tablets for two weeks, followed by metronidazole for two weeks, which she completed yesterday. She reports ongoing symptoms of severe diarrhea, dizziness, lack of energy, and fatigue after completing the antibiotic course. She states that the dizziness was present prior to starting the medication. Prior to her recent treatment, she experienced constipation. A previous upper endoscopy revealed inflammation of the stomach and confirmed the H. pylori infection. Her weight has been stable in the upper 180s to low 190s. [facility], [facility] Medical History (Updated 03/31/25 @ 13:26 by Yudi Jimenez CNP) Dizziness Constipation Diverticulosis Tubular adenoma Helicobacter pylori gastritis Acid reflux Epigastric abdominal pain Breast calcification, right Physical exam Mild recurrent major depression Right knee pain Essential hypertension ASCUS of cervix with negative high risk HPV Depression Migraines Hypovitaminosis D Pure hypercholesterolemia Surgical History Hx of colonoscopy History of endometrial ablation History of breast biopsy History of tubal ligation Family History Father Hypertension CVD (cardiovascular disease) Diabetes Mother Hypertension Diabetes Hypercholesteremia Sister Lung cancer Family/Other FH: mental illness Social History Household Members: Spouse Housing: Apartment Are you a primary aged or disabled care worker to a significant other at home: No Do you presently have visiting nurse or other home services: No Alcohol intake: never Patient Tobacco Use Status: Never used Tobacco e-Cigarette/Vaping Use: Never Used Second Hand Smoke Exposure: No service: No Current occupational status: unemployed 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 Sexual orientation: Straight/Heterosexual Gender identity: Female Cognitive needs: No Hearing needs: No Vision needs: Yes Female Reproductive History Menstrual Age of Menarche: 9 Review of Systems Const Reports as per HPI ENT Reports as per HPI Card Reports as per HPI Resp Reports as per HPI GI Reports as per HPI Reports as per HPI Physical Exam Vital Signs: Last Vital Signs Pulse 96 03/31/25 12:22 BP 160/77 H 03/31/25 12:22 BMI result Body Mass Index 35.9 Const General: healthy appearing, no acute distress and well developed Nutritional Appearance: obese Orientation/consciousness: patient oriented x3 HEENT Head: Yes normal to inspection, Yes normocephalic and Yes atraumatic Face and sinus: Yes normal facial exam Eyes General: appearance normal, both eyes and all related structures Neck Neck: Yes normal visual inspection Resp Effort & Inspection: normal respiratory effort, able to speak in complete sentences, no tracheal deviation and symmetric chest movement Cardio Jugular venous distension: no JVD GI Inspection: Yes obesity Neuro General: patient oriented x3 Gait exam (Neuro): Normal gait present Psych Appearance: grossly normal Mental Status: mental status grossly normal Speech and movement: Normal speech and movement present Affect: normal affect Attitude: cooperative Thought process: Normal thought process present Thought content: Normal thought content present Insight: Good insight present (Psych) Judgement: Good judgement present (Psych) Assessment & Plan Assessment & Plan (1) Helicobacter pylori gastritis: Comment: 02/03/25 EGD Irregular Z line, gastritis (r/o atrophic), positive H pylori, polypoid Gastric polyp, Normal duodenum Code(s): K29.70 - Gastritis, unspecified, without bleeding; B96.81 - Helicobacter pylori [H. pylori] as the cause of diseases classified elsewhere Category: Medical Plan: The patient has completed a sequential antibiotic therapy regimen for H. pylori. - A retest to confirm eradication will be performed four weeks after the completion of treatment. - Testing can be done on or after April 27. - The patient was instructed to stop taking omeprazole two weeks before the test, with the last dose on April 13. - A follow-up visit will be scheduled after the test results are available. (2) Diarrhea: Code(s): R19.7 - Diarrhea, unspecified Category: Medical Qualifiers: Diarrhea type: unspecified type Qualified Code(s): R19.7 - Diarrhea, unspecified Plan: The patient's diarrhea is considered a likely side effect of the recent antibiotic treatment. - She was advised to continue taking a probiotic for the next couple of months to help rebalance the gut microbiome. (3) Dizziness: Code(s): R42 - Dizziness and giddiness Category: Medical Plan: The patient reports dizziness, which was present before the recent course of medication and may be unrelated to her gastrointestinal condition. - No further gastrointestinal workup for this symptom is planned at this time. Plan Follow-up one week after H. pylori retesting or sooner as needed Time: I spent a total of 22 minutes on the date of encounter which includes: Preparing to see the patient (reviewed previous documentation, test results and medical history) Performing a medically appropriate exam and/or evaluation Ordering medications, tests, and procedures Documenting clinical information in the health record Orders: Orders H Pylori Breath Test 04/27/25 B96.81 - Helicobacter pylori [H. pylori] as the cause of diseases classified elsewhere, K29.70 - Gastritis, unspecified, without bleeding Coding Level of Care Code Established Pt Est Pt Level 3 (62069) Patient Type Established Diagnoses Helicobacter pylori gastritis K29.70; B96.81 Diarrhea, unspecified type R19.7 Diarrhea type: unspecified type Dizziness R42
[2025-03-31 12:22] VITALS: BP 160/77; PULSE 96; BMI 35.9
--- OUTSIDE RECORDS SUMMARY | 2025-03-31 15:38 | XMS_ITS | Encounter Summary ---
Author Organization [employer] Address [address] [facility] [address] [place] [address] Care Team Providers Care Stock Lifter Name Role Phone Unavailable Primary Care Provider Unavailabl e Reason for Visit * Reason Onset Date Comments unable to post portal PAR 06/12/2024 Encounter Details Date Type Department Care Team (Late st Contact Info) Description 06/12/2024 Telephone [facility] ADULT DENTAL [address] [place] [address] Sarahy Edwards DDS [address] [place] [address] unable to post portal PAR Social History [...] Care Team (Late st Contact Info) Description 04/27/2025 8:30 AM EST Office Visit [facility] [address] [place] [address] Ismael Trevino DDS [address] [place] [address] 05/12/2025 11:00 AM EST Office Visit [facility] [address] [place] [address] Shikha Santos [address] [place] [address] documented as of this encounter Visit Diagnoses Not on filedocumented in this encounter
--- OUTSIDE RECORDS SUMMARY | 2025-03-31 15:38 | XMS_ITS | Encounter Summary ---
Author Organization [employer] Address [address] [facility] [address] [place] [address] Care Team Providers Care Manufacturing Mechanic Name Role Phone Unavailable Primary Care Provider Unavailabl e Encounter Details Date Type Department Care Team (Latest Contact Info) Description 07/24/2021 Abstract [facility] CONVERSIONS Dental, Provider, DDS Social History [...] Description 04/27/2025 8:30 AM EST Office Visit [facility] ADULT DENTAL [address] [place] [address] BelindaIsmael, DDS [address] [place] [address] 05/12/2025 11:00 AM EST Office Visit [facility] ADULT DENTAL [address] [place] [address] Tom, Shikha [address] [place] [address] documented as of this encounter Visit Diagnoses Not on filedocumented in this encounter
--- OUTSIDE RECORDS SUMMARY | 2025-03-31 15:38 | XMS_ITS | Clinical Summary ---
Author Organization [employer] Address [address] [facility] [address] [place] [address] Care Team Providers Care Project Management Intern Name Role Phone Unavailable Primary Care Provider Unavailabl e Allergies Active Allergy Reactions Criticality Noted Date Comments Metronidazole 06/18/2024 Medications hydroCHLOROthiazi de (HYDRODiuril) 25 MG tablet TOME 1 TABLETA POR V A ORAL TODOS LOS D 05/18/19 25 Active hydrOXYzine HCl (Atarax) 25 MG tablet TAKE 1 TABLET BY MOUTH EVERY NIGHT AT BEDTIME NEEDED PARA ANSIEDAD/PARA DORMIR Active losartan (Cozaar) 25 MG tablet TOME 1 TABLETA POR V A ORAL TODOS LOS D 04/20/19 25 Active omeprazole (PriLOSEC) [address] capsule Take 1 capsule by mouth Once per day. 10/11/19 12 Active fluticasone (Flonase) 50 MCG/ACT nasal spray ROCIAR 2 VECES EN CADA VENTANILLA DE LA NARIZ A DIARIO FOR ALLERGIC RHINITIS FOR 30 DAYS 05/14/19 25 Active Bisacodyl EC 5 MG EC tablet TOME DOS TABLETAS POR V A ORAL TODOS LOS D AL ACOSTARSE FOR 2 DAYS 12/10/19 24 Active bismuth subsalicylate (Pepto Bismol) 262 MG chewable tablet 02/25/20 25 Active docusate sodium (Colace) 100 MG capsule TOME 1 C PSULA POR V A ORAL 2 TIMES A DAY NEEDED FOR CONSTIPATION 02/20/20 25 Active sertraline (Zoloft) 100 MG tablet TOME 1 TABLETA POR V A ORAL TODOS LOS D EN LA MA CECILIA 01/09/20 25 Active tetracycline 500 MG capsule 02/26/20 25 Active losartan (Cozaar) 100 MG tablet TOME ODETTE TABLETA POR V A ORAL ONCE A DIARIO 02/04/20 25 Active Omeprazole 20 MG tablet delayed-release TOME 1 TABLETA POR V A ORAL DOS VECES AL D A FOR 28 DAYS 10/09/19 25 Active Active Problems Problem Noted Date Diagnosed Date Allergic rhinitis 10/11/2011 Anemia 10/11/2011 Fibroadenosis of breast 10/11/2011 Gastroesophageal reflux disease 10/11/2011 Panic disorder with agoraphobia 10/11/2011 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 [address] [place] [address] Shikha Santos 02/26/2025 8:00 AM EST Office Visit [facility] [address] [place] [address] Shikha Santos Stage 2 grade B generalized periodontitis per AAP/EFP 2017 classification (Primary Dx); Dental calculus; Dental caries from Last 3 Months Immunizations Immunization Administration Dates Next Due Pfizer Covid-19 Vaccine [...] Sign Reading Time Taken Comments Blood Pressure 136/84 02/26/2025 7:46 AM EST Pulse 60 08/11/2024 1:19 PM EDT Temperature - - Respiratory Rate - - Oxygen Saturation - - Inhaled Oxygen Concentration - - Weight - - Height - - Body Mass Index - - Plan of Treatment Upcoming Encounters Date Type Department Care Team (Late st Contact Info) Description 04/27/2025 8:30 AM EST Office Visit [facility] [address] [place] [address] Ismael Trevino DDS [address] [place] [address] 05/12/2025 11:00 AM EST Office Visit [facility] [address] [place] [address] Shikha Santos [address] [place] [address] Health Maintenance Due Date Last Done Comments [...] of 3 - PCV) 03/12/2018 03/12/2017, 07/13/2016 Zoster Vaccines (2 of 2) 03/27/2022 01/30/2022 COVID-19 Vaccine ( season) 2024 01/21/2023, 04/23/2022, 10/05/2021, Additional history exists Dental Oral Exam 08/27/2025 02/26/2025, 02/2022, 01/10/2017, Additional history exists Dental Prophylaxis 08/27/2025 02/26/2025, 0 07/24/2021, 01/10/2017, Additional history exists DTaP/Tdap/Td Vaccines (2 - Td or Tdap) 01/19/2026 01/20/2016, 09/05/2012, 10/21/2009, Additional history exists Tobacco Screening 02/26/2026 02/26/2025 Dental X-Ray: Bitewings 02/27/2026 02/27/20 25, 06/12/2024, 07/24/2021, Additional history exists Dental X-Ray: Full Mouth 02/28/2028 025, 08/11/2024, 07/24/2021, Additional history exists RSV Patients and Patients Aged 60 years or older (1 - 1-dose 75+ series) 11/04/2038 Hepatitis B Vaccines Completed 01/23/2011, 03/08/2008, 02/05/2000 Influenza Vaccine Completed 02/03/2025, , 01/16/2024, Additional history exists HIB Vaccines Aged Out [...] Procedure Name Priority Date/Time Associated Diagnosis Comments COMPREHENSIVE PERIODONTAL EVALUATION - NEW OR ESTABLISHED PATIENT Routine 02/26/2025 8:00 AM EST PERIODIC ORAL EVALUATION - ESTABLISHED PATIENT Routine 02/26/2025 8:00 AM EST CASE PRESENTATION, DETAILED AND EXTENSIVE TREATMENT PLANNING Routine 02/26/2025 8:00 AM EST Stage 2 grade B generalized periodontitis per AAP/EFP 2017 classification Dental calculus Dental caries INTRAORAL - COMPLETE SERIES OF RADIOGRAPHIC IMAGES Routine 02/26/2025 8:00 AM EST Stage 2 grade B generalized periodontitis per AAP/EFP 2017 classification Dental calculus Dental caries PROPHYLAXIS - ADULT Routine 02/26/2025 8 :00 AM EST Stage 2 grade B generalized periodontitis per AAP/EFP 2017 classification Dental calculus 17 O AMALGAM FILLING Routine 02/26/2025 12:00 AM EST 18 EXTRACTION Routine 02/26/2025 12:00 AM EST from Last 3 Months Insurance
--- OUTSIDE RECORDS SUMMARY | 2025-03-31 15:38 | XMS_ITS | Encounter Summary ---
Author Organization [employer] Address [address] [facility] [address] [place] [address] Care Team Providers Care Roof Panel Hanger Name Role Phone Unavailable Primary Care Provider Unavailabl e Encounter Details Date Type Department Care Team (Late st Contact Info) Description 03/26/2025 Telephone [facility] [address] [place] [address] Shikha Santos [address] [place] [address] Social History Tobacco Use Types Packs/Day Years [...] encounter Miscellaneous Notes * Telephone Encounter - Vira Mantilla - 03/26/2025 11:17 AM EST Called patient to schedule a deep cleaning appointment but there was no answer so I left a voicemail. documented in this encounter Plan of Treatment Upcoming Encounters Date Type Department Care Team (Late st Contact Info) Description 04/27/2025 8:30 AM EST Office Visit [facility] [address] [place] [address] Ismael Trevino DDS [address] [place], [place] [phone] 05/12/2025 11:00 AM EST Office Visit [facility] [address] [place] [address] Shikha Santos [address] [place] [address] documented as of this encounter Visit Diagnoses Not on filedocumented in this encounter
== END 2025-03-31 12:59 | disposition home or self-care (01) ==
LOC: HO.HGI 11:44
PROVIDERS: PCP Internal Medicine; Visit Provider Nurse Practitioner Family
DX: K29.70 Gastritis, unspecified, without bleeding (principal); B96.81 Helicobacter pylori [H. pylori] as the cause of diseases classified elsewhere; R19.7 Diarrhea, unspecified; R42 Dizziness and giddiness
CPT/HCPCS: 99213

== ENCOUNTER → 2025-03-31 11:43 | Outpatient (BNVA) | payer OTHER, SELFPAY | PROVIDERS: PCP Internal Medicine; Visit Provider Nurse Practitioner Family | DX: K29.70 Gastritis, unspecified, without bleeding (principal); B96.81 Helicobacter pylori [H. pylori] as the cause of diseases classified elsewhere; R19.7 Diarrhea, unspecified; R42 Dizziness and giddiness | CPT/HCPCS: 99212 ==